=== PATIENT | female | born 1935 | race Caucasian/White ===

== ENCOUNTER → 2016-12-30 | Day surgery (SDC) | payer MEDICARE, BC ==
[2016-12-25 11:06] VITALS: BMI 27.4
[~2016-12-30] MED LIST: ALBUTEROL NEBULIZED 2.5 MG/3 ML INHALATION PRN; ALLOPURINOL 100 MG TAB PO SCH; ALPRAZolam 0.25 MG TAB PO PRN; ATORVASTATIN 40 MG TAB PO SCH; BENZOCAINE SPRAY 100 APPLIC/CAN MUCOUS MEM ONE; CLOPIDOGREL 75 MG TAB PO SCH; ERGOCALCIFEROL 50,000 UNIT CAP PO SCH; ESTROGENS, CONJUGATED 0.625 MG TAB PO SCH; FUROSEMIDE 20 MG TAB PO SCH; HYDROcodone/APAP 7.5-325MG 1 EACH TAB PO PRN; ISOSORBIDE MONONITRATE ER 60 MG TAB.ER.24H PO SCH; LEVOTHYROXINE 50 MCG TAB PO SCH; METOPROLOL SUCCINATE (ER) 25 MG TAB.ER.24H PO SCH; MIDAZOLAM 2 MG/2 ML VIAL IVP ONE; MIDAZOLAM 2 MG/2 ML VIAL ONE; MONTELUKAST 10 MG TAB PO SCH; NON-FORMULARY DRUG (Losartan Potassium [Losartan Potassium] 100 MG) PO SCH; SODIUM CHLORIDE 0.9% 1,000 ML IV SCH; SODIUM CHLORIDE 0.9% 250 ML IV ONE; STOOL SOFTENER PO SCH; VIT A,C & E-LUTEIN-MINERALS 1 EACH TAB PO SCH; ZOLPIDEM 5 MG TAB PO SCH; fentaNYL (PF) 50 MCG/ML 2 ML AMP IV ONE; fentaNYL (PF) 50 MCG/ML 2 ML AMP ONE
[2016-12-30 11:10] VITALS: RESP 18; TEMP 98
--- NOTE | 2016-12-30 13:26 | ECHOT ---
DATE OF SERVICE: INDICATION: Evaluation of aortic valve. PROCEDURE: After explaining the procedure to patient as well as risks and the complications, blood pressure, heart rate, O2 saturation was monitored. The throat was sprayed with Cetacaine. She received 25 mcg intravenous fentanyl and 2 mg of intravenous Versed. The probe was introduced into the esophagus without difficulty. Images were obtained without difficulty. The probe was removed. There was no immediate complications. The patient was returned to her room in stable condition. The procedure was done after obtaining moderate conscious sedated state. FINDINGS: Left atrial size is mildly dilated. Left atrial appendage is normal. Left ventricular size and systolic function are normal. The aortic valve is a tricuspid valve with severe fibrocalcific changes of the aortic cusp with reduced opening. By planimetry the valve area is ranging between 0.6 and 1.0 sq cm. The mitral valve revealed severe mitral annulus calcification. Tricuspid valve appears to be normal. Descending thoracic aorta revealed moderate atherosclerotic changes. No pericardial effusion was noted. Contrast bubble study revealed no evidence of shunting across the interatrial septum. Doppler pulse wave and color Doppler obtained revealed mild mitral and tricuspid regurgitation with mild aortic and pulmonic regurgitation. The peak gradient across the aortic valve was 53 mmHg with a mean of 33 mmHg. There was evidence of patent foramen ovale with [id number] shunting. CONCLUSION: 1. Mildly dilated left atrium with normal appearance of left appearance of left atrial appendage. 2. Normal left ventricular size and systolic function. 3. Moderate to severe aortic stenosis with a peak gradient of 53 mmHg and a mean of 33 mmHg. 4. Severe mitral annulus calcification. 5. Mild mitral, tricuspid and aortic and pulmonic regurgitation. 6. Evidence of patent foramen ovale with [id number] shunting. 7. Moderate atherosclerotic changes of the descending thoracic aorta.
[2016-12-30 13:49] VITALS: BP 122/62; PULSE 66
== END | disposition home or self-care (01) ==
LOC: CATHCVL 10:43
PROVIDERS: ATTEND Internal Medicine Interventional Cardiology
DX: I08.3 Combined rheumatic disorders of mitral, aortic and tricuspid valves (principal); I70.0 Atherosclerosis of aorta; I25.10 Atherosclerotic heart disease of native coronary artery without angina pectoris; I10 Essential (primary) hypertension; I77.9 Disorder of arteries and arterioles, unspecified; E78.2 Mixed hyperlipidemia; I27.2 Other secondary pulmonary hypertension; E11.9 Type 2 diabetes mellitus without complications; I73.9 Peripheral vascular disease, unspecified; Z82.49 Family history of ischemic heart disease and other diseases of the circulatory system; Z79.891 Long term (current) use of opiate analgesic; Z79.899 Other long term (current) drug therapy; Z88.0 Allergy status to penicillin
CPT/HCPCS: 93312; 93320; 93325; 99152; J2250; J3010

== ENCOUNTER 2017-02-15 10:47 | Day surgery (SDC) | payer MEDICARE, BC ==
[2017-02-08 14:04] VITALS: BMI 28.0
[~2017-02-15 10:47] MED LIST changes: -ALBUTEROL NEBULIZED 2.5 MG/3 ML INHALATION PRN; -ALLOPURINOL 100 MG TAB PO SCH; +ALPRAZolam 0.5 MG TAB PO PRN; +ASPIRIN 325 MG TAB PO STA; -ATORVASTATIN 40 MG TAB PO SCH; +ATORVASTATIN 80 MG TAB PO STA; -BENZOCAINE SPRAY 100 APPLIC/CAN MUCOUS MEM ONE; -CLOPIDOGREL 75 MG TAB PO SCH; -ERGOCALCIFEROL 50,000 UNIT CAP PO SCH; -ESTROGENS, CONJUGATED 0.625 MG TAB PO SCH; -FUROSEMIDE 20 MG TAB PO SCH; -HYDROcodone/APAP 7.5-325MG 1 EACH TAB PO PRN; -ISOSORBIDE MONONITRATE ER 60 MG TAB.ER.24H PO SCH; -LEVOTHYROXINE 50 MCG TAB PO SCH; -METOPROLOL SUCCINATE (ER) 25 MG TAB.ER.24H PO SCH; -MIDAZOLAM 2 MG/2 ML VIAL IVP ONE; -MIDAZOLAM 2 MG/2 ML VIAL ONE; -MONTELUKAST 10 MG TAB PO SCH; +NITROGLYCERIN SL TABS 0.4 MG TAB SUBLINGUAL PRN; -NON-FORMULARY DRUG (Losartan Potassium [Losartan Potassium] 100 MG) PO SCH; -SODIUM CHLORIDE 0.9% 1,000 ML IV SCH; +SODIUM CHLORIDE 0.9% 1,000 ML in EMPTY BAG 1 BAG IV ONE; -SODIUM CHLORIDE 0.9% 250 ML IV ONE; -STOOL SOFTENER PO SCH; -VIT A,C & E-LUTEIN-MINERALS 1 EACH TAB PO SCH; -ZOLPIDEM 5 MG TAB PO SCH; -fentaNYL (PF) 50 MCG/ML 2 ML AMP IV ONE; -fentaNYL (PF) 50 MCG/ML 2 ML AMP ONE
[2017-02-15 11:13] VITALS: RESP 20
[2017-02-15 11:49] LABS: Basophils % (A) 0 %; CHCM 33.4; Eosinophils # (A) 0.2 k/uL (0-0.7); Eosinophils % (A) 4 %; HCT 32.6 % (34.0-46.0); HDW 2.62; HGB 10.9 gm/dL (11.4-16.0); Luc # (Auto) 0.19; Luc % (Auto) 4; Lymphocytes # (A) 1.6 k/uL (1.0-4.8); Lymphocytes % (A) 34 %; MCH 34.4 pg (25.0-35.0); MCHC 33.6 g/dL (31.0-37.0); MCV 102.4 fL (80.0-100.0); Macrocytosis Slight; Mean Platelet Volume 8.6; Monocytes # (A) 0.4 k/uL (0-1.0); Monocytes % (A) 8 %; Neutrophils # (A) 2.4 k/uL (1.3-7.7); Neutrophils % (A) 51 %; RBC 3.18 m/uL (3.80-5.40); RDW 15.3 % (11.5-15.5); WBC 4.7 k/uL (3.8-10.6); WBC (Perox) 4.92
[2017-02-15 11:51] LABS: Calcium 8.6 mg/dL (8.4-10.2); Potassium 4.2 mmol/L (3.5-5.1)
[2017-02-15] MEDS ORDERED: HEPARIN SODIUM 1,000 UN/ML (10ML VL) ONE (12:01)
[2017-02-15] MEDS ORDERED: diphenhydrAMINE 50 MG/ML 1 ML VIAL ONE (12:01)
[2017-02-15] MEDS ORDERED: fentaNYL (PF) 50 MCG/ML 2 ML AMP ONE (12:01)
[2017-02-15] MEDS ORDERED: LIDOCAINE 2% INJ 20 MG/ML (20 ML MDV) ONE (12:01)
[2017-02-15] MEDS ORDERED: VERAPAMIL 2.5 MG/ML 2 ML AMP ONE (12:01)
[2017-02-15] MEDS ORDERED: fentaNYL (PF) 50 MCG/ML 2 ML AMP IV ONE (12:12)
[2017-02-15] MEDS ORDERED: diphenhydrAMINE 50 MG/ML 1 ML VIAL IVP ONE (12:12)
[2017-02-15] MEDS ORDERED: MIDAZOLAM 2 MG/2 ML VIAL ONE (12:16)
[2017-02-15] MEDS ORDERED: MIDAZOLAM 2 MG/2 ML VIAL IV ONE (12:18)
[2017-02-15] MEDS: VERAPAMIL SYRINGE (5 MG/10 ML) INTRAARTER ONE ×2 (12:23→12:52)
[2017-02-15] MEDS ORDERED: SODIUM CHLORIDE 0.9% 1,000 ML IV ONE (12:24)
[2017-02-15] MEDS ORDERED: IODIXANOL 320 MG/ML 100 ML INTRAARTER ONE (12:57)
[2017-02-15] MEDS ORDERED: RX INFO: IV CONTRAST WAS GIVEN 1 EACH MISC MISCELLANE PRN (13:13)
[2017-02-15] MEDS ORDERED: HYDROcodone/APAP 7.5-325MG 1 EACH TAB PO PRN (13:14)
[2017-02-15] MEDS ORDERED: ALBUTEROL NEBULIZED 2.5 MG/3 ML INHALATION PRN (13:14)
[2017-02-15] MEDS ORDERED: ALPRAZolam 0.25 MG TAB PO PRN (13:14)
[2017-02-15] MEDS ORDERED: SODIUM CHLORIDE 0.9% 1,000 ML IV SCH (13:15)
[2017-02-15 13:28] LABS: Site RA
[2017-02-15 13:31] LABS: Site PA
[2017-02-15 13:32] LABS: Site ARTERIAL
[2017-02-15] MEDS ORDERED: FERROUS SULFATE 325 MG TAB PO SCH (16:00)
[2017-02-15] MEDS ORDERED: DOCUSATE 100 MG CAP PO SCH (16:00)
[2017-02-15] MEDS ORDERED: ALLOPURINOL 100 MG TAB PO SCH (17:00)
[2017-02-15 17:29] VITALS: TEMP 98.1
[2017-02-15 17:30] VITALS: PULSE 51
[2017-02-15] MEDS ORDERED: CLOPIDOGREL 75 MG TAB PO SCH (17:30)
[2017-02-15 17:31] VITALS: BP 106/51
[2017-02-15] MEDS ORDERED: VIT A,C & E-LUTEIN-MINERALS 1 EACH TAB PO SCH (21:00)
[2017-02-15] MEDS ORDERED: ATORVASTATIN 40 MG TAB PO SCH (21:00)
[2017-02-15] MEDS ORDERED: LEVOTHYROXINE 50 MCG TAB PO SCH (21:00)
[2017-02-15] MEDS ORDERED: ZOLPIDEM 5 MG TAB PO SCH (21:00)
[2017-02-15] MEDS ORDERED: MONTELUKAST 10 MG TAB PO SCH (21:00)
[2017-02-15] MEDS ORDERED: ESTROGENS, CONJUGATED 0.625 MG TAB PO SCH (21:00)
--- NOTE | 2017-02-16 07:59 | CC ---
Mrs. Menchaca is an 82 year old female with a known history of hypertension, hyperlipidemia, diabetes mellitus, history of coronary artery disease as well as progressive aortic stenosis who has been complaining of progressive symptoms of dyspnea on exertion. In view of that, recommendation was made regarding cardiac catheterization. The procedure as well as risks and complications were discussed with the patient who is in full understanding and agreement. PROCEDURE: The patient was brought to the laborer cement gun placing in a fasting semi-sedated state. After receiving Fentanyl and Benadryl, achieving moderate conscious sedated state, she was draped and prepped in conventional fashion using Xylocaine anesthesia and Seldinger technique, a 6 Afghan sheath was introduced into the right radial artery . Using guidewire exchange, intracath in the right ( ) vein was exchanged to a 6 Afghan sheath. Following that, right heart catheterization was performed using Polo Rosangela catheter. Multiple samples and calculations were obtained. Cardiac output by thermal dilution was calculated. Following that, selective right and left coronary artery was performed using 5 Afghan 3.5 Bend, right and left Isabelle catheter. Multiple views of the right coronary artery including hemiaxial views were obtained. Following that, the 5 Afghan right Isabelle catheter was used to cross the aortic valve and pressure was measured. Following that, catheter and sheath were removed. Hemostasis was obtained with deployment of a TR band and removal of the sheath from the venous site and with compression. There were no immediate complications. The patient was returned to her room in stable condition. Of note, the patient received 3000 units of intravenous heparin as well as intra-arterial verapamil. FINDINGS: HEMODYNAMICS: Pulmonary artery systolic pressure of42 with a diastolic of 10 and a mean of 20 mmHg. Pulmonary capillary wedge pressure A wave 22, V wave 28 with a mean of 20 mmHg. Right ventricle systolic pressure of 42 with an end diastolic of 8 mmHg. Right atrium A wave 8, V wave 8 with a mean of 6 mmHg. Left ventricular end diastolic pressure of 12 mmHg. Cardiac output by Ran of 4.4 L per minute and by thermal 4.2 L per minute. Aortic valve air was 1.1 cm squared. Fluoroscopy: There is severe calcification involving the aortic valve, the mitral annulus as well as the coronaries. LEFT MAIN: This is a large size vessel bifurcating into left circumflex, left anterior descending artery. Left main coronary artery has 30 to 40% plaque distally without any significant progression compared to the prior study. LEFT ANTERIOR DESCENDING ARTERY: This is a large size vessel reaching towards the apex with a wrap around the apex segment giving rise to a moderate sized diagonal branch. The left anterior descending artery had mild plaque in the mid segment of 20%. The rest of the vessel has no high grade stenosis. LEFT CIRCUMFLEX: This is a nondominant vessel, moderate to large in caliber, giving rise to four obtuse marginal branch. The fourth is the largest in caliber. The vessel is calcified. There is diffuse intimal disease with area of stenosis up to 30 to 40% in the mid segment. RIGHT CORONARY ARTERY: This is a large dominant vessel, heavily calcified giving rise to a right PDA and a small PLV. The right coronary artery in the proximal segment has 40 to 50% stenosis. There is diffuse intimal disease throughout the course of the vessel. LEFT VENTRICULOGRAM: Left ventriculogram was not performed. CONCLUSION: 1. Heavily calcified mitral annulus, aortic valve and coronary arteries. 2. Mild to moderate triple vessel coronary artery disease with no progression compared with the images obtained in 2013. 3. Moderate to severe aortic stenosis. RECOMMENDATIONS: In view of findings, I have recommended proceed with evaluation for possible aortic valve replacement by TAVR. Those findings and recommendations were discussed with the patient and her family who are in full understanding and agreement. Duration of procedure: 48 minutes. VIRI
--- NOTE | 2017-02-16 08:01 | MISC ---
Dear Dr. Gonzalez: I had the pleasure of performing cardiac catheterization on Mrs. Menchaca at [facility] on February 15 and a full copy of procedure note will be forwarded to you. In brief, she was found to have mild to moderate triple vessel coronary artery disease with no significant progression of disease compared to 2012. at the same time, she was found to have moderate to severe aortic stenosis. At this time, I will obtain an evaluation for possible aortic valve placement by TAVR. I will keep you updated on her progress. Thank you again for allowing me to participate in her care. Please feel free to call for any questions. Sincerely, VIRI
[2017-02-16] MEDS ORDERED: METOPROLOL SUCCINATE (ER) 25 MG TAB.ER.24H PO SCH (09:00)
[2017-02-16] MEDS ORDERED: ISOSORBIDE MONONITRATE ER 60 MG TAB.ER.24H PO SCH (09:00)
[2017-02-16] MEDS ORDERED: LOSARTAN 50 MG TAB PO SCH (09:00)
[2017-02-22] MEDS ORDERED: ERGOCALCIFEROL 50,000 UNIT CAP PO SCH (09:00)
== END 2017-02-15 18:57 | disposition home or self-care (01) ==
LOC: CATHCVL 10:47 → 3OBS 12:58 → CATHCVL 18:57
PROVIDERS: ATTEND Internal Medicine Interventional Cardiology
DX: I25.10 Atherosclerotic heart disease of native coronary artery without angina pectoris (principal); I08.2 Rheumatic disorders of both aortic and tricuspid valves; I10 Essential (primary) hypertension; E78.2 Mixed hyperlipidemia; I77.9 Disorder of arteries and arterioles, unspecified; E11.9 Type 2 diabetes mellitus without complications; I73.9 Peripheral vascular disease, unspecified; E78.00 Pure hypercholesterolemia, unspecified; Z82.49 Family history of ischemic heart disease and other diseases of the circulatory system; Z79.02 Long term (current) use of antithrombotics/antiplatelets; Z79.899 Other long term (current) drug therapy
CPT/HCPCS: 93460; 80048; 85018; 82810; 85025; 99152; 99153 ×2; C1769 ×5; C1894 ×3; C1751; J2250; J1200; Q9967; J3010; J1644

== ENCOUNTER 2017-03-02 04:43 | Inpatient (IN) | payer MEDICARE, BC ==
[2017-03-02 04:53] LABS: Glucose,Whole Blood 123 mg/dL (75-99)
[2017-03-02] MEDS ORDERED: ONDANSETRON 4 MG/2 ML VIAL IVP STA (05:14)
[2017-03-02] MEDS ORDERED: MORPHINE SULFATE 4 MG/ML SYRINGE IV STA (05:14)
[2017-03-02 05:21] LABS: Basophils % (A) 0 %; CH 34.6; CHCM 33.5; Eosinophils # (A) 0.2 k/uL (0-0.7); Eosinophils % (A) 3 %; HCT 36.2 % (34.0-46.0); HDW 2.52; HGB 12.1 gm/dL (11.4-16.0); Luc # (Auto) 0.29; Luc % (Auto) 4; Lymphocytes % (A) 36 %; MCH 34.7 pg (25.0-35.0); MCHC 33.4 g/dL (31.0-37.0); MCV 103.9 fL (80.0-100.0); Macrocytosis Moderate; Mean Platelet Volume 8.7; Monocytes # (A) 0.5 k/uL (0-1.0); Monocytes % (A) 5 %; Neutrophils # (A) 4.5 k/uL (1.3-7.7); Neutrophils % (A) 52 %; RBC 3.48 m/uL (3.80-5.40); RDW 15.3 % (11.5-15.5); WBC 8.5 k/uL (3.8-10.6); WBC (Perox) 8.63
--- NOTE | 2017-03-02 05:22 | ED ---
General Adult HPI - General Chief complaint: Nausea/Vomiting/Diarrhea Stated complaint: vomiting Time Seen by Provider: 03/02/17 04:54 Source: patient, RN notes reviewed, old records reviewed Mode of arrival: EMS - History of Present Illness Initial comments: This is an 82-year-old female severe nausea vomiting. Abdominal pain abdominal discomfort, epigastric fullness, nausea, and persistent vomiting. Patient woke up with symptoms tonight. Patient states she has history of heart disease but no prior history of similar symptoms, she has had her gallbladder removed. No fevers. - Related Data Home Medications Medication Instructions Recorded Confirmed ALPRAZolam [Xanax] 0.25 mg PO TID PRN 09/20/14 03/02/17 Ergocalciferol [Vitamin D2 50,000 unit PO Q7DAYS 09/20/14 03/02/17 (DRISDOL)] Furosemide [Lasix] 20 mg PO BID 09/20/14 03/02/17 Levothyroxine Sodium [Synthroid] 50 mcg PO DAILY 09/20/14 03/02/17 Montelukast [Singulair] 10 mg PO DAILY 09/20/14 03/02/17 Zolpidem Tartrate 5 mg PO HS 09/20/14 03/02/17 Atorvastatin [Lipitor] 40 mg PO HS 01/28/16 03/02/17 Isosorbide Mononitrate ER [Imdur] 60 mg PO DAILY 01/28/16 03/02/17 Albuterol Sulfate [Proair Hfa] 2 puff INHALATION RT-BID PRN 02/12/16 03/02/17 Hydrocodone/Acetaminophen [[place] 1 tab PO Q6HR PRN 02/12/16 03/02/17 7.5-325] Metoprolol Succinate [Toprol XL] 25 mg PO DAILY 02/12/16 03/02/17 Allopurinol [Zyloprim] 300 mg PO DAILY 06/16/16 03/02/17 Clopidogrel Bisulfate [Plavix] 75 mg PO DAILY 03/02/17 03/02/17 Diphenoxylate HCl/Atropine 1 tab PO BID 03/02/17 03/02/17 [Lomotil 2.5-0.025 mg Tablet] Estrogens, Conjugated [Premarin] 0.625 mg PO DAILY 03/02/17 03/02/17 Imodium A-D 1mg/7.5ml 1 gm PO DAILY PRN 03/02/17 03/02/17 Losartan Potassium [Cozaar] 100 mg PO DAILY 03/02/17 03/02/17 Nitroglycerin Sl Tabs [Nitrostat] 0.4 mg SUBLINGUAL Q5M PRN 03/02/17 03/02/17 Allergies Allergy/AdvReac Type Severity Reaction Status Date / Time adhesive Allergy tears skin Verified 03/02/17 05:30 off mirtazapine [From Remeron] Allergy Unknown Verified 03/02/17 05:30 Penicillins Allergy Rash/Hives Verified 03/02/17 05:30 Review of Systems ROS Statement: Those systems with pertinent positive or pertinent negative responses have been documented in the HPI. ROS Other: All systems not noted in ROS Statement are negative. 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, HYPOGLYCEMIC, frequent urination, "leaky valve", diff swallowing, HX UTERINE CA, skin ca rt gnosticism/corner rt eye, MACULAR DEGENERATION , hypothyroid History of Any Multi-Drug Resistant Organisms: None Reported Past Surgical History: Adenoidectomy, Appendectomy, Cholecystectomy, Heart Catheterization, Hysterectomy, Joint Replacement, Tonsillectomy Additional Past Surgical History / Comment(s): DMITRIY knee replacements, lt shoulder replacement,hemorroidectomy, basal cell skin ca removed, COLONOSCOPY, tummy tuck, D&C, LIPOMAS REMOVED FROM BILAT LEGS AND LT ARM, KIMMY, salpingectomy , hx c-diff 09/2014 Past Anesthesia/Blood Transfusion Reactions: No Reported Reaction Past Psychological History: No Psychological Hx Reported Smoking Status: Former smoker Past Alcohol Use History: None Reported Past Drug Use History: None Reported - Past Family History Mother Family Medical History: Cancer Additional Family Medical History / Comment(s): lt bbb Father Family Medical History: Myocardial Infarction (MS) Son(s) Family Medical History: Myocardial Infarction (MS) Additional Family Medical History / Comment(s): 2 sons from mi's Daughter(s) Family Medical History: Myocardial Infarction (MS) Additional Family Medical History / Comment(s): daughter had mi while doing cpr on her brother- General Exam General appearance: alert, in no apparent distress Head exam: Present: atraumatic, normocephalic, normal inspection Eye exam: Present: normal appearance, PERRL, EOMI. Absent: scleral icterus, conjunctival injection, periorbital swelling ENT exam: Present: normal exam, mucous membranes moist Neck exam: Present: normal inspection. Absent: tenderness, meningismus, lymphadenopathy Respiratory exam: Present: normal lung sounds bilaterally. Absent: respiratory distress, wheezes, rales, rhonchi, stridor Cardiovascular Exam: Present: regular rate, normal rhythm, normal heart sounds. Absent: systolic murmur, diastolic murmur, rubs, gallop, clicks GI/Abdominal exam: Present: soft, normal bowel sounds. Absent: distended, tenderness, guarding, rebound, rigid Extremities exam: Present: normal inspection, full ROM, normal capillary refill. Absent: tenderness, pedal edema, joint swelling, calf tenderness Back exam: Present: normal inspection Neurological exam: Present: alert, oriented X3, CN II-XII intact Psychiatric exam: Present: normal affect, normal mood Skin exam: Present: warm, dry, intact, normal color. Absent: rash Course Vital Signs 03/02/17 03/02/17 03/02/17 04:48 05:12 06:17 Temperature 97.8 F Pulse Rate 88 95 98 Respiratory 18 20 18 Rate Blood Pressure 199/122 177/94 198/108 O2 Sat by Pulse 98 98 99 Oximetry 03/02/17 03/02/17 03/02/17 06:47 07:17 07:25 Temperature 97.8 F Pulse Rate 109 H 102 H 102 H Respiratory 18 18 18 Rate Blood Pressure 183/93 147/73 147/73 O2 Sat by Pulse 96 98 98 Oximetry EKG Findings - EKG Comments: EKG Findings:: EKG shows A. fib with RVR rate 113, QRS 90, QTC 438 Medical Decision Making - Medical Decision Making A2 female year with weakness, new onset atrial fibrillation with RVR, mildly elevated troponin, no chest pain. Patient be admitted for control of nausea vomiting, rule out ACS, positive elevated troponin nonsystemic - Lab Data Result diagrams: 03/02/17 05:06 03/02/17 05:06 Lab Results 0803/02/17 03/02/17 Range/Units 04:49 05:06 05:06 WBC 8.5 (3.8-10.6) k/uL RBC 3.48 L (3.80-5.40) m/uL Hgb 12.1 (11.4-16.0) gm/dL Hct 36.2 (34.0-46.0) % MCV 103.9 H (80.0-100.0) fL MCH 34.7 (25.0-35.0) pg MCHC 33.4 (31.0-37.0) g/dL RDW 15.3 (11.5-15.5) % Plt Count 167 (150-450) k/uL Neutrophils % 52 % Lymphocytes % 36 % Monocytes % 5 % Eosinophils % 3 % Basophils % 0 % Neutrophils # 4.5 (1.3-7.7) k/uL Lymphocytes # 3.0 (1.0-4.8) k/uL Monocytes # 0.5 (0-1.0) k/uL Eosinophils # 0.2 (0-0.7) k/uL Basophils # 0.0 (0-0.2) k/uL Macrocytosis Moderate PT (9.0-12.0) sec INR (<1.2) APTT (22.0-30.0) sec Sodium (137-145) mmol/L Potassium (3.5-5.1) mmol/L Chloride (98-107) mmol/L Carbon Dioxide (22-30) mmol/L Anion Gap mmol/L BUN (7-17) mg/dL Creatinine (0.52-1.04) mg/dL Est GFR (MDRD) Af Amer (>60 ml/min/1.73 sqM) Est GFR (MDRD) Non-Af (>60 ml/min/1.73 sqM) Glucose (74-99) mg/dL POC Glucose (mg/dL) 123 H (75-99) mg/dL POC Glu Insurance Adviser ID Rosa Isela Chang Calcium (8.4-10.2) mg/dL Phosphorus (2.5-4.5) mg/dL Magnesium (1.6-2.3) mg/dL Total Bilirubin (0.2-1.3) mg/dL AST (14-36) U/L ALT (9-52) U/L Alkaline Phosphatase (38-126) U/L Total Creatine Kinase 38 (30-135) U/L CK-MB (CK-2) 2.2 (0.0-2.4) ng/mL CK-MB (CK-2) Rel Index 5.8 Troponin I 0.048 H* (0.000-0.034) ng/mL NT-Pro-B Natriuret Pep pg/mL Total Protein (6.3-8.2) g/dL Albumin (3.5-5.0) g/dL Lipase (23-300) U/L 03/02/17 03/02/17 03/02/17 Range/Units 05:06 05:06 05:06 WBC (3.8-10.6) k/uL RBC (3.80-5.40) m/uL Hgb (11.4-16.0) gm/dL Hct (34.0-46.0) % MCV (80.0-100.0) fL MCH (25.0-35.0) pg MCHC (31.0-37.0) g/dL RDW (11.5-15.5) % Plt Count (150-450) k/uL Neutrophils % % Lymphocytes % % Monocytes % % Eosinophils % % Basophils % % Neutrophils # (1.3-7.7) k/uL Lymphocytes # (1.0-4.8) k/uL Monocytes # (0-1.0) k/uL Eosinophils # (0-0.7) k/uL Basophils # (0-0.2) k/uL Macrocytosis PT 10.9 (9.0-12.0) sec INR 1.1 (<1.2) APTT 23.4 (22.0-30.0) sec Sodium 139 (137-145) mmol/L Potassium 3.8 (3.5-5.1) mmol/L Chloride 106 (98-107) mmol/L Carbon Dioxide 22 (22-30) mmol/L Anion Gap 11 mmol/L BUN 48 H (7-17) mg/dL Creatinine 1.00 (0.52-1.04) mg/dL Est GFR (MDRD) Af Amer >60 (>60 ml/min/1.73 sqM) Est GFR (MDRD) Non-Af 53 (>60 ml/min/1.73 sqM) Glucose 115 H (74-99) mg/dL POC Glucose (mg/dL) (75-99) mg/dL POC Glu Insurance Adviser ID Calcium 8.5 (8.4-10.2) mg/dL Phosphorus 3.9 (2.5-4.5) mg/dL Magnesium 1.9 (1.6-2.3) mg/dL Total Bilirubin 0.6 (0.2-1.3) mg/dL AST 52 H (14-36) U/L ALT 47 (9-52) U/L Alkaline Phosphatase 62 (38-126) U/L Total Creatine Kinase (30-135) U/L CK-MB (CK-2) (0.0-2.4) ng/mL CK-MB (CK-2) Rel Index Troponin I (0.000-0.034) ng/mL NT-Pro-B Natriuret Pep pg/mL Total Protein 6.2 L (6.3-8.2) g/dL Albumin 3.7 (3.5-5.0) g/dL Lipase 45 (23-300) U/L 03/02/17 Range/Units 05:06 WBC (3.8-10.6) k/uL RBC (3.80-5.40) m/uL Hgb (11.4-16.0) gm/dL Hct (34.0-46.0) % MCV (80.0-100.0) fL MCH (25.0-35.0) pg MCHC (31.0-37.0) g/dL RDW (11.5-15.5) % Plt Count (150-450) k/uL Neutrophils % % Lymphocytes % % Monocytes % % Eosinophils % % Basophils % % Neutrophils # (1.3-7.7) k/uL Lymphocytes # (1.0-4.8) k/uL Monocytes # (0-1.0) k/uL Eosinophils # (0-0.7) k/uL Basophils # (0-0.2) k/uL Macrocytosis PT (9.0-12.0) sec INR (<1.2) APTT (22.0-30.0) sec Sodium (137-145) mmol/L Potassium (3.5-5.1) mmol/L Chloride (98-107) mmol/L Carbon Dioxide (22-30) mmol/L Anion Gap mmol/L BUN (7-17) mg/dL Creatinine (0.52-1.04) mg/dL Est GFR (MDRD) Af Amer (>60 ml/min/1.73 sqM) Est GFR (MDRD) Non-Af (>60 ml/min/1.73 sqM) Glucose (74-99) mg/dL POC Glucose (mg/dL) (75-99) mg/dL POC Glu Insurance Adviser ID Calcium (8.4-10.2) mg/dL Phosphorus (2.5-4.5) mg/dL Magnesium (1.6-2.3) mg/dL Total Bilirubin (0.2-1.3) mg/dL AST (14-36) U/L ALT (9-52) U/L Alkaline Phosphatase (38-126) U/L Total Creatine Kinase (30-135) U/L CK-MB (CK-2) (0.0-2.4) ng/mL CK-MB (CK-2) Rel Index Troponin I (0.000-0.034) ng/mL NT-Pro-B Natriuret Pep 81882 pg/mL Total Protein (6.3-8.2) g/dL Albumin (3.5-5.0) g/dL Lipase (23-300) U/L - Radiology Data Radiology results: report reviewed (Chest x-ray is negative for acute disease), image reviewed Critical Care Time Critical Care Time: Yes Total Critical Care Time: 31 Disposition Clinical Impression: Dehydration, Nausea and vomiting, NSTEMI (non-ST elevated myocardial infarction ), Atrial fibrillation with RVR Disposition: ADMITTED IP TO THIS HOSP Condition: Fair
[2017-03-02] MEDS: SODIUM CHLORIDE 0.9% 1,000 ML IV STA ×2 (05:25→09:13)
[2017-03-02 05:33] LABS: ALT 47 U/L (9-52); AST 52 U/L (14-36); Alkaline Phosphatase 62 U/L (38-126); Anion Gap 11 mmol/L; Blood Urea Nitrogen 48 mg/dL (7-17); Calcium 8.5 mg/dL (8.4-10.2); Carbon Dioxide 22 mmol/L (22-30); Chloride 106 mmol/L (98-107); Glucose 115 mg/dL (74-99); Magnesium 1.9 mg/dL (1.6-2.3); Non-African American GFR(MDRD) 53 (>60 ml/min/1.73 sqM); Phosphorous 3.9 mg/dL (2.5-4.5); Potassium 3.8 mmol/L (3.5-5.1); Sodium 139 mmol/L (137-145); Total Bilirubin 0.6 mg/dL (0.2-1.3); Total Protein 6.2 g/dL (6.3-8.2)
[2017-03-02 05:49] LABS: INR 1.1 (<1.2); Partial Thromboplastin Time 23.4 sec (22.0-30.0); Prothrombin Time 10.9 sec (9.0-12.0)
[2017-03-02 05:59] LABS: Creatine Kinase MB 2.2 ng/mL (0.0-2.4)
[2017-03-02 06:07] LABS: Troponin I 0.048 ng/mL (0.000-0.034)
[2017-03-02] MEDS ORDERED: diphenhydrAMINE 50 MG/ML 1 ML VIAL IVP STA (06:32)
[2017-03-02] MEDS ORDERED: METOCLOPRAMIDE 5 MG/ML 2 ML VIAL IVP STA (06:32)
[2017-03-02] MEDS ORDERED: LORazepam 2 MG/ML SYRINGE IV STA (06:32)
--- NOTE | 2017-03-02 06:35 | XR ---
EXAM: XR Abdomen Complete With XR Chest CLINICAL HISTORY: Reason: Pain TECHNIQUE: Frontal view of the chest, frontal view of the abdomen/pelvis and upright view of the abdomen. COMPARISON: July 28, 2010. FINDINGS: Low lung wardens. Cardiac silhouette and pulmonary vascularity are within normal limits allowing for technique. No free air. No radiographic evidence for dilated bowel loops. Cholecystectomy clips. Degenerative changes in lumbar spine. Atherosclerotic calcifications. Multiple pelvic calcifications. IMPRESSION: No radiographic evidence for small bowel obstruction or free air. Multiple pelvic calcifications may represent phleboliths. No acute cardiopulmonary process.
[2017-03-02] MEDS ORDERED: LABETALOL 5 MG/ML VIAL MDV IVP STA (06:47)
[2017-03-02] MEDS ORDERED: ASPIRIN 81 MG CHEW PO STA (06:49)
[2017-03-02] MEDS ORDERED: HEPARIN SODIUM,PORCINE 5,000 UNIT/ML 1 ML VIAL IV PRN (06:49)
[2017-03-02] MEDS ORDERED: HEPARIN SODIUM,PORCINE 5,000 UNIT/ML 1 ML VIAL IV ONE (06:49)
[2017-03-02] MEDS ORDERED: NITROGLYCERIN SL TABS 0.4 MG TAB SUBLINGUAL PRN (06:49)
[2017-03-02] MEDS ORDERED: METOCLOPRAMIDE 5 MG/ML 2 ML VIAL IVP PRN (06:51)
[2017-03-02] MEDS ORDERED: diphenhydrAMINE 50 MG/ML 1 ML VIAL IVP PRN (06:51)
[2017-03-02] MEDS ORDERED: PANTOPRAZOLE 40 MG/10 ML VIAL IVP STA (06:51)
[2017-03-02] MEDS ORDERED: DILTIAZEM 125 MG in SODIUM CHLORIDE 0.9% 100 ML IV ONE (06:57)
[2017-03-02] MEDS ORDERED: DILTIAZEM 5 MG/ML 5 ML VIAL IVP STA (06:57)
[2017-03-02] MEDS ORDERED: SODIUM CHLORIDE 0.9% 1,000 ML IV SCH (07:00)
[2017-03-02] MEDS: HEPARIN SODIUM,PORCINE/D5W PMX 25,000 UNIT in DEXTROSE/WATER 1 500ML.BAG IV SCH (07:13)
--- NOTE | 2017-03-02 08:59 | P.CRDCN ---
History of Present Illness Consult date: 03/02/17 Requesting physician: Perfecto Gonzalez Consult reason: atrial fibrillation Chief complaint: Nausea, shortness of breath and palpitations History of present illness: This is a pleasant 82-year-old female who follows with Dr. Chen in the office. Patient has a known history of hypertension, diabetes, hyperlipidemia, progressive aortic stenosis, who was recently in the hospital because of symptoms of exertional dyspnea, she underwent a KIMMY as well as cardiac catheterization by Dr. Chen. Cardiac catheterization revealed heavily calcified mitral annulus, aortic valve and coronary arteries. Mild to moderate triple-vessel coronary artery disease with no progression as compared with the images obtained in 2013. Moderate to severe aortic stenosis. Subsequently a KIMMY was performed which revealed a mildly dilated left atrium with normal appearance of left atrial appendage, normal left ventricular size and function, moderate to severe aortic stenosis with a peak gradient of 53 and a mean of 33. Severe mitral annulus calcification. Mild mitral tricuspid and aortic and pulmonic regurg. 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 Patient presents to the hospital on this occasion with symptoms of nausea associated dry heaves, significantly worsening shortness of breath and associated palpitations with heart racing. Initial EKG on presentation here shows significant amount of artifact. Subsequent EKG shows atrial fibrillation with a rapid ventricular response. Abdominal x-ray was performed which did not reveal any evidence for small bowel obstruction or free air. No chest x-ray performed. Blood pressure on arrival here 199/122, heart rate in the 90s, 98% on room air. Blood pressure this morning 150/70 with a heart rate of 110, 96% on 2 L of oxygen. White blood cell count 8.5, hemoglobin 12.1, platelet count 167. Potassium 3.8, BUN 48, creatinine 1.0. Troponin 0.048. At the time of my examination, patient is very sleepy and difficult to arouse, she does answer questions appropriately. She was apparently given Ativan as well as Benadryl in the emergency room which is likely contributing to her sleepiness this morning. The patient had been seen in consultation by Dr. Hair, his recommendations for the patient were to be referred for transcatheter valve at [facility] in [place]. 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, HYPOGLYCEMIC, frequent urination, "leaky valve", diff swallowing, HX UTERINE CA, skin ca rt caodaism/corner rt eye, MACULAR DEGENERATION , hypothyroid History of Any Multi-Drug Resistant Organisms: None Reported Past Surgical History: Adenoidectomy, Appendectomy, Cholecystectomy, Heart Catheterization, Hysterectomy, Joint Replacement, Tonsillectomy Additional Past Surgical History / Comment(s): DMITRIY knee replacements, lt shoulder replacement,hemorroidectomy, basal cell skin ca removed, COLONOSCOPY, tummy tuck, D&C, LIPOMAS REMOVED FROM BILAT LEGS AND LT ARM, KIMMY, salpingectomy , hx c-diff 09/2014 Past Anesthesia/Blood Transfusion Reactions: No Reported Reaction Past Psychological History: No Psychological Hx Reported Smoking Status: Former smoker Past Alcohol Use History: None Reported Past Drug Use History: None Reported - Past Family History Mother Family Medical History: Cancer Additional Family Medical History / Comment(s): lt bbb Father Family Medical History: Myocardial Infarction ([place]) Son(s) Family Medical History: Myocardial Infarction ([place]) Additional Family Medical History / Comment(s): 2 sons from mi's Daughter(s) Family Medical History: Myocardial Infarction ([place]) Additional Family Medical History / Comment(s): daughter had mi while doing cpr on her brother- Medications and Allergies Home Medications Medication Instructions Recorded Confirmed Type ALPRAZolam [Xanax] 0.25 mg PO TID PRN 09/20/14 03/02/17 History Ergocalciferol [Vitamin D2 50,000 unit PO Q7DAYS 09/20/14 03/02/17 History (DRISDOL)] Estrogens, Conjugated [Premarin] 0.625 mg PO HS 09/20/14 03/02/17 History Furosemide [Lasix] 20 mg PO DAILY 09/20/14 03/02/17 History Levothyroxine Sodium [Synthroid] 50 mcg PO HS 09/20/14 03/02/17 History Montelukast [Singulair] 10 mg PO HS 09/20/14 03/02/17 History Vits A,C,E/Lutein/Minerals 1 tab PO BID 09/20/14 03/02/17 History [Ocuvite with Lutein Tablet] Zolpidem Tartrate 5 mg PO HS 09/20/14 03/02/17 History Atorvastatin [Lipitor] 40 mg PO HS 01/28/16 03/02/17 History Isosorbide Mononitrate ER [Imdur] 60 mg PO DAILY 01/28/16 03/02/17 History Albuterol Sulfate [Proair Hfa] 2 puff INHALATION Q6HR PRN 02/12/16 03/02/17 History Hydrocodone/Acetaminophen [[place] 1 tab PO Q6HR PRN 02/12/16 03/02/17 History 7.5-325] Metoprolol Succinate [Toprol XL] 25 mg PO DAILY 02/12/16 03/02/17 History Allopurinol [Zyloprim] 300 mg PO 1700 06/16/16 03/02/17 History Stool Softener(Unknown Name) 1 tab PO TID 12/25/16 02/15/17 History Ferrous Sulfate [Iron] 325 mg PO DIRECTED 02/08/17 03/02/17 History Aspirin 81 mg PO ONCE 02/15/17 03/02/17 History Lisinopril [Zestril] 20 mg PO BID 03/02/17 03/02/17 History Meloxicam [Mobic] 15 mg PO DAILY 03/02/17 03/02/17 History hydrALAZINE HCL [Hydralazine HCl] 25 mg PO TID 03/02/17 03/02/17 History Allergies Allergy/AdvReac Type Severity Reaction Status Date / Time adhesive Allergy tears skin Verified 03/02/17 05:30 off mirtazapine [From Remeron] Allergy Unknown Verified 03/02/17 05:30 Penicillins Allergy Rash/Hives Verified 03/02/17 05:30 Physical Exam Vitals: Vital Signs Temp Pulse Resp BP Pulse Ox 03/02/17 08:13 96 03/02/17 07:25 97.8 F 102 H 18 147/73 98 03/02/17 07:17 102 H 18 147/73 98 03/02/17 06:47 109 H 18 183/93 96 03/02/17 06:17 98 18 198/108 99 03/02/17 05:12 95 20 177/94 98 03/02/17 04:48 97.8 F 88 18 199/122 98 Intake and Output 03/01/17 03/02/17 03/02/17 22:59 06:59 14:59 Other: Weight 71.214 kg PHYSICAL EXAMINATION: HEENT: [Head is atraumatic, normocephalic. Pupils equal, round. Neck is supple. There is elevated jugular venous pressure.] HEART EXAMINATION: Heart S1 and S2 irregularly irregular a systolic ejection murmur is heard. CHEST EXAMINATION: Circumflex clear with diminished air entry to the bases. ABDOMEN: [ Soft, nontender. Bowel sounds are heard. No organomegaly noted]. EXTREMITIES:[ 2+ peripheral pulses with no evidence of peripheral edema and no calf tenderness noted]. NEUROLOGIC [patient is sleepy , alert and oriented -3.] . Results 03/02/17 05:06 03/02/17 05:06 Cardiac Enzymes 03/02/17 03/02/17 Range/Units 05:06 05:06 AST 52 H (14-36) U/L CK-MB (CK-2) 2.2 (0.0-2.4) ng/mL Troponin I 0.048 H* (0.000-0.034) ng/mL Coagulation 03/02/17 Range/Units 05:06 PT 10.9 (9.0-12.0) sec APTT 23.4 (22.0-30.0) sec CBC 03/02/17 Range/Units 05:06 WBC 8.5 (3.8-10.6) k/uL RBC 3.48 L (3.80-5.40) m/uL Hgb 12.1 (11.4-16.0) gm/dL Hct 36.2 (34.0-46.0) % Plt Count 167 (150-450) k/uL Comprehensive Metabolic Panel 03/02/17 Range/Units 05:06 Sodium 139 (137-145) mmol/L Potassium 3.8 (3.5-5.1) mmol/L Chloride 106 (98-107) mmol/L Carbon Dioxide 22 (22-30) mmol/L BUN 48 H (7-17) mg/dL Creatinine 1.00 (0.52-1.04) mg/dL Glucose 115 H (74-99) mg/dL Calcium 8.5 (8.4-10.2) mg/dL AST 52 H (14-36) U/L ALT 47 (9-52) U/L Alkaline Phosphatase 62 (38-126) U/L Total Protein 6.2 L (6.3-8.2) g/dL Albumin 3.7 (3.5-5.0) g/dL Current Medications Generic Name Dose Route Start Last Admin Trade Name Freq PRN Reason Stop Dose Admin Aspirin 325 mg 03/03/17 09:00 Aspirin PO DAILY TERESO Diphenhydramine HCl 25 mg 03/02/17 06:51 Benadryl IVP Q6HR PRN Allergy Symptoms Heparin Sodium (Porcine) 0 unit 03/02/17 06:49 Heparin IV Q6HR PRN Low PTT Protocol Sodium Chloride 1,000 mls @ 100 mls/hr 03/02/17 05:14 03/02/17 05:25 Saline 0.9% IV 03/02/17 15:13 100 mls/hr .Q10H STA Administration Heparin Sodium/Dextrose 25,000 500 mls @ 17.09 mls/hr 03/02/17 07:00 07:13 unit/ IV Solution IV 12 units/kg/hr .Q24H TERESO 17.09 mls/hr Protocol Administration 12 UNITS/KG/HR Sodium Chloride 1,000 mls @ 100 mls/hr 03/02/17 07:00 Saline 0.9% IV .Q10H TERESO Diltiazem HCl 125 mg/ Sodium 125 mls @ 5 mls/hr 03/02/17 06:57 Chloride IV 03/03/17 06:56 .Q24H ONE 5 MG/HR Metoclopramide HCl 5 mg 03/02/17 06:51 Reglan IVP Q6HR PRN Nausea And Vomiting Nitroglycerin 0.4 mg 03/02/17 06:49 Nitrostat SUBLINGUAL Q5M PRN Chest Pain Ondansetron HCl 4 mg 03/02/17 06:51 Zofran IVP Q6HR PRN Nausea And Vomiting Pantoprazole Sodium 40 mg 03/02/17 09:00 Protonix IVP DAILY TERESO Intake and Output 03/01/17 03/02/17 03/02/17 22:59 06:59 14:59 Other: Weight 71.214 kg 03/02/17 05:03/02/17 05:06 EKG Interpretations (text) EKG shows atrial fibrillation with rapid ventricular response. Assessment and Plan Plan: Assessment and plan #1 atrial fibrillation with rapid ventricular response, appears to be of new onset. #2 moderate to severe aortic stenosis, patient recently had a KIMMY performed last month which revealed moderate to severe aortic stenosis, severe mitral annulus calcification, evidence of patent foramen ovale with [id number] shunting and moderate atherosclerotic changes in the descending thoracic aorta #3 mild to moderate coronary artery disease, cardiac catheterization performed last month revealed a 30-40% lesion in the left main, 20% stenosis of the LAD, 30-40% mid circumflex stenosis, 40-50% stenosis of the right coronary artery with diffuse intimal disease throughout. #4 hypertension #5 hyperlipidemia #6 diabetes #7 peripheral vascular disease #8 family history of premature coronary artery disease #9 history of prior TIA #10 abnormal troponin Plan We will obtain a repeat echocardiogram with Doppler study. We will also request a chest x-ray be performed. Patient is currently on IV heparin. It was explained to the son this morning the patient will require anticoagulation for stroke prevention. She has recently been seen in consultation by cardiothoracic surgery with the recommendation to be transferred to [facility] for transcatheter valve. We will resume the patient's beta layo, baby aspirin, statin, and MEGAN inhibitor. Obtain BNP level. Further recommendations to follow. DNP note has been reviewed, I agree with a documented findings and plan of care. Patient was seen and examined.
[2017-03-02] MEDS ORDERED: LISINOPRIL 20 MG TAB PO SCH (09:00)
[2017-03-02] MEDS ORDERED: PANTOPRAZOLE 40 MG/10 ML VIAL IVP SCH (09:00)
[2017-03-02] MEDS: METOPROLOL SUCCINATE (ER) 25 MG TAB.ER.24H PO SCH (09:12)
--- NOTE | 2017-03-02 09:34 | XR ---
EXAMINATION TYPE: XR chest 1V portable DATE OF EXAM: 03/02/2017 COMPARISON: Prior chest x-ray 07/28/2010 HISTORY: Shortness of breath TECHNIQUE: Single frontal view of the chest is obtained. FINDINGS: There is no focal air space opacity, pleural effusion, or pneumothorax seen. The cardiac silhouette size is possibly accentuated due to rotation. Postop change noted to the left shoulder. Th ere are overlying cardiac leads. Mitral annular calcifications are suspected. Patient is rotated. Garrett g volumes somewhat low. The osseous structures are intact. IMPRESSION: There may be cardiomegaly although the patient is rotated. Postop changes. Follow-up as indicated.
[2017-03-02] MEDS: ONDANSETRON 4 MG/2 ML VIAL IVP PRN ×3 (10:37→22:50)
[2017-03-02] MEDS ORDERED: Magnesium Replacement Protocol 1 EACH MISC MISCELLANE PRN (11:05)
[2017-03-02] MEDS ORDERED: Potassium Replacement Protocol 1 EACH MISC MISCELLANE PRN (11:05)
--- NOTE | 2017-03-02 11:19 | ECHOF ---
Referral Reason:abn trop MEASUREMENTS -------- HEIGHT: 160.0 cm WEIGHT: 71.2 kg BP: IVSd: 1.4 cm (0.6 - 1.1) LVIDd: 3.2 cm (3.9 - 5.3) LVPWd: 1.4 cm (0.6 - 1.1) IVSs: 2.0 cm LVIDs: 1.9 cm LVPWs: 1.8 cm LAESV Index (A-L): 75.03 ml/m Ao Diam: 2.5 cm (2.0 - 3.7) AV Cusp: 1.0 cm (1.5 - 2.6) LA Diam: 4.4 cm (2.7 - 3.8) MV EXCURSION: 10.065 mm (> 18.000) MV EF SLOPE: 32 mm/s (70 - 150) EPSS: 1.0 cm AV maxP.95 mmHg AV meanP.30 mmHg AR PHT: 457 ms RAP: 20.00 mmHg RVSP: 59.49 mmHg FINDINGS -------- Atrial fibrillation. This was a technically good study. There is moderate concentric left ventricular hypertrophy. Overall left ventricular systolic function is low-normal with, an EF between 50 - 55 %. The right ventricle is normal in size and function. LA is severely dilated >40 ml/m2 RA appears enlarged. Aortic valve is trileaflet and is severely thickened. There is mild aortic regurgitation. There is moderate aortic stenosis present. Peak/mean gradient across the Aortic Valve is 18.95mmHg / 10.30mmHg. The mitral valve leaflets are moderate to severely thickened. Severe mitral annular calcification present. Moderate mitral regurgitation is present. ECHOGENIC mobile structure attached to AML on the LV side ? veg or thrombus. Adv : KIMMY Severe tricuspid regurgitation present. There is moderate pulmonary hypertension. The right ventricular systolic pressure, as measured by Doppler, is 59.49mmHg. Pulmonic valve appears structurally normal. The aortic root size is normal. The inferior vena cava is severely dilated with no collapse. The pericardium is normal. CONCLUSIONS -------- 1. Atrial fibrillation. 2. Peak/mean gradient across the Aortic Valve is 18.95mmHg / 10.30mmHg. 3. The mitral valve leaflets are moderate to severely thickened. 4. Moderate mitral regurgitation is present. 5. Severe tricuspid regurgitation present. 6. There is moderate pulmonary hypertension. 7. The right ventricular systolic pressure, as measured by Doppler, is 59.49mmHg. 8. Pulmonic valve appears structurally normal. 9. The aortic root size is normal. 10. The inferior vena cava is severely dilated with no collapse. 11. The pericardium is normal. 12. This was a technically good study. 13. There is moderate concentric left ventricular hypertrophy. 14. Overall left ventricular systolic function is low-normal with, an EF between 50 - 55 %. 15. The right ventricle is normal in size and function. 16. LA is severely dilated >40 ml/m2 17. RA appears enlarged. 18. Aortic valve is trileaflet and is severely thickened. 19. There is mild aortic regurgitation. FERRULER: Marlena Hall RDCS
--- NOTE | 2017-03-02 12:05 | P.HPIM ---
History of Present Illness H&P Date: 03/02/17 Chief Complaint: Shortness of breath This is a 82-year-old female with a very complex past medical history noted below significant for coronary artery disease and moderate to severe aortic stenosis of presented to the hospital with worsening nausea, vomiting and shortness of breath. Patient is very lethargic this morning and is unable to provide any meaningful medical history. Apparently she was given Benadryl and Ativan in the emergency room and currently she is very lethargic. Most of the medical history was obtained by chart review and nursing staff report. Apparently, patient was having worsening shortness of breath over the past few days. She was recently seen at [facility] and being evaluated for possible TAVR. Yesterday she was having a lot of nausea and vomited and then decided to come to the emergency room for further evaluation. In the emergency room, 12-lead EKG showed new onset atrial fibrillation with rapid ventricular response. Patient was admitted to telemetry floor. She remained hemodynamically stable. Cardizem drip was ordered but was never started as heart rate improved significantly after patient receives her home dose of metoprolol. She was seen and evaluated by cardiology. Review of Systems Review of system: 14 points review of systems were obtained and were negative except to what were mentioned in the HPI. 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, HYPOGLYCEMIC, frequent urination, "leaky valve", diff swallowing, HX UTERINE CA, skin ca rt yazidi/corner rt eye, MACULAR DEGENERATION , hypothyroid History of Any Multi-Drug Resistant Organisms: None Reported Past Surgical History: Adenoidectomy, Appendectomy, Cholecystectomy, Heart Catheterization, Hysterectomy, Joint Replacement, Tonsillectomy Additional Past Surgical History / Comment(s): DMITRIY knee replacements, lt shoulder replacement,hemorroidectomy, basal cell skin ca removed, COLONOSCOPY, tummy tuck, D&C, LIPOMAS REMOVED FROM BILAT LEGS AND LT ARM, KIMMY, salpingectomy , hx c-diff 09/2014 Past Anesthesia/Blood Transfusion Reactions: No Reported Reaction Past Psychological History: No Psychological Hx Reported Smoking Status: Former smoker Past Alcohol Use History: None Reported Past Drug Use History: None Reported - Past Family History Mother Family Medical History: Cancer Additional Family Medical History / Comment(s): lt bbb Father Family Medical History: Myocardial Infarction ([place]) Additional Family Medical History / Comment(s): Father had a OH at the age of 86yrs. He had CABG. Son(s) Family Medical History: Myocardial Infarction ([place]) Additional Family Medical History / Comment(s): 2 sons from mi's Daughter(s) Family Medical History: Myocardial Infarction ([place]) Additional Family Medical History / Comment(s): daughter had mi while doing cpr on her brother- Medications and Allergies Home Medications Medication Instructions Recorded Confirmed Type ALPRAZolam [Xanax] 0.25 mg PO TID PRN 09/20/14 03/02/17 History Ergocalciferol [Vitamin D2 50,000 unit PO Q7DAYS 09/20/14 03/02/17 History (DRISDOL)] Furosemide [Lasix] 20 mg PO BID 09/20/14 03/02/17 History Levothyroxine Sodium [Synthroid] 50 mcg PO DAILY 09/20/14 03/02/17 History Montelukast [Singulair] 10 mg PO DAILY 09/20/14 03/02/17 History Zolpidem Tartrate 5 mg PO HS 09/20/14 03/02/17 History Atorvastatin [Lipitor] 40 mg PO HS 01/28/16 03/02/17 History Isosorbide Mononitrate ER [Imdur] 60 mg PO DAILY 01/28/16 03/02/17 History Albuterol Sulfate [Proair Hfa] 2 puff INHALATION RT-BID PRN 02/12/16 03/02/17 History Hydrocodone/Acetaminophen [[place] 1 tab PO Q6HR PRN 02/12/16 03/02/17 History 7.5-325] Metoprolol Succinate [Toprol XL] 25 mg PO DAILY 02/12/16 03/02/17 History Allopurinol [Zyloprim] 300 mg PO DAILY 06/16/16 03/02/17 History Clopidogrel Bisulfate [Plavix] 75 mg PO DAILY 03/02/17 03/02/17 History Diphenoxylate HCl/Atropine 1 tab PO BID 03/02/17 03/02/17 History [Lomotil 2.5-0.025 mg Tablet] Estrogens, Conjugated [Premarin] 0.625 mg PO DAILY 03/02/17 03/02/17 History Imodium A-D 1mg/7.5ml 1 gm PO DAILY PRN 03/02/17 03/02/17 History Losartan Potassium [Cozaar] 100 mg PO DAILY 03/02/17 03/02/17 History Nitroglycerin Sl Tabs [Nitrostat] 0.4 mg SUBLINGUAL Q5M PRN 03/02/17 03/02/17 History Allergies Allergy/AdvReac Type Severity Reaction Status Date / Time adhesive Allergy tears skin Verified 03/02/17 05:30 off mirtazapine [From Remeron] Allergy Unknown Verified 03/02/17 05:30 Penicillins Allergy Rash/Hives Verified 03/02/17 05:30 Physical Exam Vitals: Vital Signs Temp Pulse Pulse Resp BP BP Pulse Ox 03/02/17 10:44 90 12 136/80 99 03/02/17 08:13 96 03/02/17 07:50 96.9 F L 109 H 16 151/74 91 L 03/02/17 07:25 97.8 F 102 H 18 147/73 98 03/02/17 07:17 102 H 18 147/73 98 03/02/17 06:47 109 H 18 183/93 96 03/02/17 06:17 98 18 198/108 99 03/02/17 05:12 95 20 177/94 98 03/02/17 04:48 97.8 F 88 18 199/122 98 Intake and Output 03/01/17 03/02/17 03/02/17 22:59 06:59 14:59 Other: # Voids 0 Weight 71.214 kg General: The patient is awake and alert, in no distress Eye: there is normal conjunctiva bilaterally. Neck: The neck is supple, there is no JVD. Cardiovascular: Normal S1-S2, no S3-S4, no murmurs. Respiratory: Lungs clear to auscultation bilaterally Gastrointestinal: Abdomen is soft, nontender Musculoskeletal: There is no pedal edema. Neurological:. Speech is normal. Skin: Skin is warm and dry Results CBC & Chem 7: 03/02/17 05:06 03/02/17 05:06 Labs: Abnormal Lab Results - Last 24 Hours (Table) 03/02/17 03/02/17 03/02/17 Range/Units 04:49 05:06 05:06 RBC 3.48 L (3.80-5.40) m/uL MCV 103.9 H (80.0-100.0) fL BUN (7-17) mg/dL Glucose (74-99) mg/dL POC Glucose (mg/dL) 123 H (75-99) mg/dL AST (14-36) U/L Troponin I 0.048 H* (0.000-0.034) ng/mL Total Protein (6.3-8.2) g/dL 03/02/17 Range/Units 05:06 RBC (3.80-5.40) m/uL MCV (80.0-100.0) fL BUN 48 H (7-17) mg/dL Glucose 115 H (74-99) mg/dL POC Glucose (mg/dL) (75-99) mg/dL AST 52 H (14-36) U/L Troponin I (0.000-0.034) ng/mL Total Protein 6.2 L (6.3-8.2) g/dL Thrombosis Risk Factor Assmnt - Choose All That Apply Any of the Below Risk Factors Present?: Yes Each Factor Represents 1 point: Acute [place], Obesity (BMI >25) Each Risk Factor Represents 3 Points: Age 75 years or older Other congenital or acquired thrombophilia - If yes, enter type in comment: No Thrombosis Risk Factor Assessment Total Risk Factor Score: 5 Thrombosis Risk Factor Assessment Level: High Risk Assessment and Plan Plan: 1. New onset atrial fibrillation with rapid ventricular response, currently heart rate well controlled with metoprolol. On anticoagulation with IV heparin. Anticoagulation discussed by cardiology with the patient's family and her son at bedside. 2. Moderate to severe aortic stenosis currently being evaluated for possible TAVR at [facility] 3. Underlying coronary artery disease 4. Essential hypertension: Blood pressure not well controlled on presentation. Now better controlled. We will continue to monitor. 5. Hypertensive urgency improved with resuming home medications Today, I reviewed her medication list and lab work resolved. Appreciate cardiology recommendations. Repeat echocardiogram showed moderate to severe aortic stenosis, moderate to severe mitral and tricuspid regurgitation. Moderate pulmonary hypertension. Preserved EF of 50% we'll continue current regimen. Repeat lab work in the morning.
[2017-03-02 13:01] LABS: Creatine Kinase MB 1.9 ng/mL (0.0-2.4); Troponin I 0.032 ng/mL (0.000-0.034)
[2017-03-02] MEDS: FUROSEMIDE 20 MG TAB PO SCH (17:41)
[2017-03-02 18:09] LABS: Creatine Kinase MB 1.8 ng/mL (0.0-2.4); Troponin I 0.029 ng/mL (0.000-0.034)
[2017-03-02] MEDS: IOHEXOL 350 MG/ML 25 ML BOTTLE (ORAL USE) PO PRN ×2 (18:41→19:57)
--- NOTE | 2017-03-02 21:38 | CT ---
"EXAMINATION TYPE: CT abdomen pelvis wo con DATE OF EXAM: 03/02/2017 COMPARISON: 07/28/2010 HISTORY: Nausea and vomiting. CT DLP: 998.00 mGycm Automated exposure control for dose reduction was used. TECHNIQUE: Helical acquisition of images was performed from the lung bases through the pelvis. FINDINGS: Evaluation of the solid viscera is limited secondary to lack of intravenous contrast. LUNG BASES: Bibasilar pleural-parenchymal scarring, subsegmental atelectasis, and paraseptal emphysem atous changes are seen. Dense three-vessel coronary calcifications and mitral annulus calcifications are present. LIVER/GB: Gallbladder is surgically absent. There is extensive intrahepatic and extrahepatic biliary ductal dilatation in combination with periportal edema and an engorged inferior vena cava. Hepatic cy st is again seen in segment 5. PANCREAS: No significant abnormality is seen. SPLEEN: No significant abnormality is seen. ADRENALS: No significant abnormality is seen. KIDNEYS: No significant abnormality is seen. FREE FLUID: A scant amount of free fluid is seen in the dependent pelvis. URINARY BLADDER: No significant abnormality is seen. PELVIC ADENOPATHY: Multiple prominent but not enlarged periaortic and mesenteric lymph nodes are see n. OSSEOUS STRUCTURES: No significant abnormality is seen. BOWEL: Right upper quadrant inflammatory changes are centered around the hepatic flexure extending i nto the hepatorenal fossa and towards the descending second portion of the duodenum. This also extend s into the fissure for the ligamentum teres. No evidence of pneumatosis intestinalis or pneumatosis c radha is seen. Lipomatous hypertrophy of the ileocecal valve is noted. Inflammatory fat stranding is al so seen of the splenic flexure to a lesser degree without distinct bowel wall thickening. Numerous pancolonic diverticula are present without evidence of acute diverticulitis. OTHER: Extensive atherosclerosis is seen of the abdominal aorta and its branches. IMPRESSION: 1. EXTENSIVE RIGHT UPPER QUADRANT FAT STRANDING AND HEPATIC FLEXURE BOWEL WALL THICKENING FAVORED TO BE SEQUELA OF COLITIS. INFLAMMATORY OR INFECTIOUS COLITIS IS FAVORED GIVEN THE SHORT SEGMENT, DISTRIB UTION OF BOWEL WALL THICKENING, LACK OF PNEUMATOSIS, AND LACK OF PORTAL VENOUS GAS, HOWEVER CORRELATI ON WITH LACTIC ACID LEVELS IS RECOMMENDED TO EXCLUDE ISCHEMIC BOWEL THERE IS EXTENSIVE CALCIFIC AT HEROMATOUS CHANGES OF THE ABDOMINAL AORTA AND ITS BRANCHES. 2. INFLAMMATORY FAT STRANDING IN THE LEFT UPPER QUADRANT TO A LESSER DEGREE MAY REPRESENT MULTIFOCAL COLITIS. 3. SURGICAL ABSENCE OF THE GALLBLADDER WITH INTRAHEPATIC AND EXTRAHEPATIC BILIARY DUCTAL DILATATION A ND A SIMPLE STABLE HEPATIC CYSTS. A Grant message has been communicated to Perfecto Gonzalez MD via the [employer] | Critical Result s ystem on 03/02/2017 9:35 PM, Message ID [id number]."
[2017-03-02] MEDS: DIPHENOX-ATROP 2.5-0.025 MG 1 EACH TAB PO SCH (22:50)
[2017-03-02] MEDS: ATORVASTATIN 40 MG TAB PO SCH (22:50)
[2017-03-03] MEDS: ONDANSETRON 4 MG/2 ML VIAL IVP PRN ×3 (05:46→21:31)
[2017-03-03] MEDS: LEVOTHYROXINE 50 MCG TAB PO SCH (06:00)
[2017-03-03 06:10] LABS: Basophils % (A) 0 %; CH 34.3; CHCM 33.1; Eosinophils % (A) 0 %; HCT 35.9 % (34.0-46.0); HDW 2.53; HGB 11.6 gm/dL (11.4-16.0); Luc # (Auto) 0.18; Luc % (Auto) 2; Lymphocytes # (A) 1.4 k/uL (1.0-4.8); Lymphocytes % (A) 20 %; MCH 33.7 pg (25.0-35.0); MCHC 32.4 g/dL (31.0-37.0); Macrocytosis Moderate; Mean Platelet Volume 8.3; Monocytes # (A) 0.5 k/uL (0-1.0); Monocytes % (A) 7 %; Neutrophils # (A) 5.1 k/uL (1.3-7.7); Neutrophils % (A) 70 %; RBC 3.45 m/uL (3.80-5.40); RDW 15.1 % (11.5-15.5); WBC 7.3 k/uL (3.8-10.6); WBC (Perox) 7.42
[2017-03-03 06:54] LABS: Calcium 8.1 mg/dL (8.4-10.2); Phosphorous 3.6 mg/dL (2.5-4.5)
[2017-03-03] MEDS ORDERED: PANTOPRAZOLE 40 MG TABLET PO SCH (07:30)
[2017-03-03] MEDS: SODIUM CHLORIDE 0.9% 1,000 ML IV SCH ×2 (07:56→21:32)
[2017-03-03] MEDS: HEPARIN SODIUM,PORCINE/D5W PMX 25,000 UNIT in DEXTROSE/WATER 1 500ML.BAG IV SCH (07:57)
[2017-03-03] MEDS: metroNIDAZOLE-NS PMX 500 MG in SALINE 1 100ML.BAG IVPB SCH ×3 (08:16→22:56)
[2017-03-03] MEDS: LEVOFLOXACIN 500MG-D5W PMX 500 MG in DEXTROSE/WATER 1 100ML.BAG IVPB SCH (08:17)
[2017-03-03] MEDS ORDERED: METOCLOPRAMIDE 5 MG/ML 2 ML VIAL IVP PRN (11:16)
--- NOTE | 2017-03-03 11:48 | P.PN ---
Subjective Patient's continued to have severe nausea all day yesterday and a computed tomography scan of the abdomen and pelvis ordered last night showing evidence of extensive right upper quadrant fat stranding with significant colitis. Patient was made nothing by mouth this morning. She is treated symptomatically. Lactate level was normal making ischemic bowel as likely. On exam her abdomen is nice and soft. There is no tenderness to palpation. Objective - Vital Signs Vital signs: Vital Signs Temp 98 F 03/03/17 11:21 Pulse 75 03/03/17 11:21 Resp 16 03/03/17 11:21 BP 132/96 03/03/17 11:21 Pulse Ox 95 03/03/17 11:21 Intake & Output 03/02/17 03/03/17 03/03/17 18:59 06:59 18:59 Intake Total 180 651.659 228.483 Output Total 100 25 Balance 180 551.659 203.483 Weight 77.5 kg Intake: IV 95 0.9 @10mls/hr 95 Intake, IV Titration 556.659 28.483 Amount Heparin Sodium,Porcine/ 556.659 28.483 D5w Pmx 25,000 unit In Dextrose/Water 1 500ml. bag @ 12 UNITS/KG/HR 17. 09 mls/hr IV .Q24H [facility] Rx #:[id number] Oral 180 200 Output: Urine 100 Emesis 25 Other: Voiding Method Bedpan # Voids 1 1 - Exam General: The patient is awake and alert, in no distress Eye: there is normal conjunctiva bilaterally. Neck: The neck is supple, there is no JVD. Cardiovascular: Normal S1-S2, no S3-S4, no murmurs. Respiratory: Lungs clear to auscultation bilaterally Gastrointestinal: Abdomen is soft, nontender Musculoskeletal: There is no pedal edema. Neurological:. Speech is normal. Skin: Skin is warm and dry - Labs CBC & Chem 7: 03/03/17 05:38 03/03/17 05:38 Labs: Abnormal Lab Results - Last 24 Hours (Table) 03/02/17 03/02/17 03/03/17 Range/Units 11:55 17:08 05:38 RBC 3.45 L (3.80-5.40) m/uL MCV 104.0 H (80.0-100.0) fL APTT 60.8 H (22.0-30.0) sec BUN (7-17) mg/dL Creatinine (0.52-1.04) mg/dL Calcium (8.4-10.2) mg/dL Total Creatine Kinase 27 L (30-135) U/L 03/03/17 03/03/17 Range/Units 05:38 05:38 RBC (3.80-5.40) m/uL MCV (80.0-100.0) fL APTT 63.6 H (22.0-30.0) sec BUN 38 H (7-17) mg/dL Creatinine 1.08 H (0.52-1.04) mg/dL Calcium 8.1 L (8.4-10.2) mg/dL Total Creatine Kinase (30-135) U/L Assessment and Plan Plan: 1. Acute colitis, with severe nausea: Probably infectious colitis. Patient is currently nothing by mouth for bowel rest. She was started on antibiotic with IV Flagyl and Levaquin. C. diff is less likely as patient is not having diarrhea. Ischemic bowel disease also this likely as her lactate is normal and her exam is benign. I will consult general surgery for further evaluation. May consider upper endoscopy/EGD. Continue symptomatic management with IV Zofran and Reglan as needed. 2. New onset atrial fibrillation with rapid ventricular response, currently heart rate well controlled with metoprolol. On anticoagulation with IV heparin. Awaiting further recommendations from cardiology regarding anticoagulation. Anticoagulation risk/benefit discussed by cardiology with the patient's family and her son at bedside. 3. Moderate to severe aortic stenosis currently being evaluated for possible TAVR at [facility]. Repeat echocardiogram showed moderate to severe aortic stenosis, moderate to severe mitral and tricuspid regurgitation. Moderate pulmonary hypertension. Preserved EF of 50% 4. Underlying coronary artery disease 5. Essential hypertension: Blood pressure not well controlled on presentation. Now better controlled. We will continue to monitor. 6. Hypertensive urgency improved with resuming home medications Today, I reviewed her medication list and lab work resolved. Appreciate cardiology and general surgery recommendations. we'll continue current regimen. Repeat lab work in the morning.
--- NOTE | 2017-03-03 14:44 | P.PN ---
Subjective This is a pleasant 82-year-old female who follows with Dr. Chen in the office. Patient has a known history of hypertension, diabetes, hyperlipidemia, progressive aortic stenosis, who was recently in the hospital because of symptoms of exertional dyspnea, she underwent a KIMMY as well as cardiac catheterization by Dr. Chen. Cardiac catheterization revealed heavily calcified mitral annulus, aortic valve and coronary arteries. Mild to moderate triple-vessel coronary artery disease with no progression as compared with the images obtained in 2013. Moderate to severe aortic stenosis. Subsequently a KIMMY was performed which revealed a mildly dilated left atrium with normal appearance of left atrial appendage, normal left ventricular size and function, moderate to severe aortic stenosis with a peak gradient of 53 and a mean of 33. Severe mitral annulus calcification. Mild mitral tricuspid and aortic and pulmonic regurg. 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 Patient presents to the hospital on this occasion with symptoms of nausea associated dry heaves, significantly worsening shortness of breath and associated palpitations with heart racing. Initial EKG on presentation here shows significant amount of artifact. Subsequent EKG shows atrial fibrillation with a rapid ventricular response. Abdominal x-ray was performed which did not reveal any evidence for small bowel obstruction or free air. No chest x-ray performed. Blood pressure on arrival here 199/122, heart rate in the 90s, 98% on room air. Blood pressure this morning 150/70 with a heart rate of 110, 96% on 2 L of oxygen. White blood cell count 8.5, hemoglobin 12.1, platelet count 167. Potassium 3.8, BUN 48, creatinine 1.0. Troponin 0.048. At the time of my examination, patient is very sleepy and difficult to arouse, she does answer questions appropriately. She was apparently given Ativan as well as Benadryl in the emergency room which is likely contributing to her sleepiness this morning. The patient had been seen in consultation by Dr. Hair, his recommendations for the patient were to be referred for transcatheter valve at [facility] in [place]. 03/03/2017. Patient had multiple episodes of severe nausea yesterday, CT of the abdomen and pelvis revealed evidence of extensive right upper quadrant fat stranding with significant colitis. She is currently nothing by mouth. Blood pressure 132/90 with heart rate in the 70s. She continues to be in atrial fibrillation, continues to be on IV heparin. We will hold off on initiating Coumadin until her GI issue is resolved. Then the patient will be started on Coumadin. Objective - Vital Signs Vital signs: Vital Signs Temp 98 F 03/03/17 11:21 Pulse 75 03/03/17 11:21 Resp 16 03/03/17 11:21 BP 132/96 03/03/17 11:21 Pulse Ox 95 03/03/17 11:21 Intake & Output 03/02/17 03/03/17 03/03/17 18:59 06:59 18:59 Intake Total 180 651.659 228.483 Output Total 100 25 Balance 180 551.659 203.483 Weight 77.5 kg Intake: IV 95 0.9 @10mls/hr 95 Intake, IV Titration 556.659 28.483 Amount Heparin Sodium,Porcine/ 556.659 28.483 D5w Pmx 25,000 unit In Dextrose/Water 1 500ml. bag @ 12 UNITS/KG/HR 17. 09 mls/hr IV .Q24H [facility] Rx #:[id number] Oral 180 200 Output: Urine 100 Emesis 25 Other: Voiding Method Bedpan # Voids 1 1 - Exam PHYSICAL EXAMINATION: HEENT: [Head is atraumatic, normocephalic. Pupils equal, round. Neck is supple. There is elevated jugular venous pressure.] HEART EXAMINATION: Heart S1 and S2 irregularly irregular a systolic ejection murmur is heard. CHEST EXAMINATION: Circumflex clear with diminished air entry to the bases. ABDOMEN: [ Soft, nontender. Bowel sounds are heard. No organomegaly noted]. EXTREMITIES:[ 2+ peripheral pulses with no evidence of peripheral edema and no calf tenderness noted]. NEUROLOGIC [patient is sleepy , alert and oriented -3.] - Labs CBC & Chem 7: 03/03/17 05:38 03/03/17 05:38 Labs: Abnormal Lab Results - Last 24 Hours (Table) 03/02/17 03/03/17 03/03/17 Range/Units 17:08 05:38 05:38 RBC 3.45 L (3.80-5.40) m/uL MCV 104.0 H (80.0-100.0) fL APTT (22.0-30.0) sec BUN 38 H (7-17) mg/dL Creatinine 1.08 H (0.52-1.04) mg/dL Calcium 8.1 L (8.4-10.2) mg/dL Total Creatine Kinase 27 L (30-135) U/L 03/03/17 Range/Units 05:38 RBC (3.80-5.40) m/uL MCV (80.0-100.0) fL APTT 63.6 H (22.0-30.0) sec BUN (7-17) mg/dL Creatinine (0.52-1.04) mg/dL Calcium (8.4-10.2) mg/dL Total Creatine Kinase (30-135) U/L Assessment and Plan Plan: Assessment and plan #1 atrial fibrillation with rapid ventricular response, appears to be of new onset. Chronic persistent. #2 moderate to severe aortic stenosis, patient recently had a KIMMY performed last month which revealed moderate to severe aortic stenosis, severe mitral annulus calcification, evidence of patent foramen ovale with [id number] shunting and moderate atherosclerotic changes in the descending thoracic aorta #3 mild to moderate coronary artery disease, cardiac catheterization performed last month revealed a 30-40% lesion in the left main, 20% stenosis of the LAD, 30-40% mid circumflex stenosis, 40-50% stenosis of the right coronary artery with diffuse intimal disease throughout. #4 hypertension #5 hyperlipidemia #6 diabetes #7 peripheral vascular disease #8 family history of premature coronary artery disease #9 history of prior TIA #10 abnormal troponin #11 nausea and vomiting Plan Echocardiogram with Doppler study reveals an ejection fraction of 50-55%. Left atrium is severely dilated, aortic valve is trileaflet and severely thickened. Moderate mitral regurgitation present. Severe tricuspid regurg. Pulmonary hypertension. Mild aortic regurg. Patient continues to be in atrial fibrillation, rate is under adequate control. She is on IV heparin currently. She will need to be initiated on Coumadin, however we will defer until her abdominal issues are addressed. DNP note has been reviewed, I agree with a documented findings and plan of care. Patient was seen and examined.
[2017-03-03] MEDS: ASPIRIN 325 MG TAB PO SCH (15:49)
[2017-03-03] MEDS: ISOSORBIDE MONONITRATE ER 60 MG TAB.ER.24H PO SCH (15:49)
[2017-03-03] MEDS: FUROSEMIDE 20 MG TAB PO SCH ×2 (15:50→15:52)
[2017-03-03] MEDS: CLOPIDOGREL 75 MG TAB PO SCH (15:50)
[2017-03-03] MEDS: METOPROLOL SUCCINATE (ER) 25 MG TAB.ER.24H PO SCH (15:50)
[2017-03-03] MEDS: DIPHENOX-ATROP 2.5-0.025 MG 1 EACH TAB PO SCH ×3 (15:50→21:36)
[2017-03-03] MEDS: ALLOPURINOL 100 MG TAB PO SCH (15:50)
[2017-03-03] MEDS: MONTELUKAST 10 MG TAB PO SCH (15:50)
[2017-03-03] MEDS: LOSARTAN 50 MG TAB PO SCH (15:51)
[2017-03-03] MEDS: PANTOPRAZOLE 40 MG/10 ML VIAL IVP SCH (16:02)
[2017-03-03] MEDS: ATORVASTATIN 40 MG TAB PO SCH (21:32)
--- NOTE | 2017-03-03 22:35 | P.GSCN ---
History of Present Illness Consult date: 03/03/17 Reason for Consult: Colitis History of present illness: We're consulted for abnormal CAT scan findings. Patient admitted with acute onset nausea. Some vomiting. No change in bowel habits. Denies diarrhea. Normal white blood cell count. Normal lactic acid. CAT scan shows inflammation of the hepatic flexure and some mild inflammation elsewhere in the colon as well. She has had a colonoscopy in the past. Unsure as to when that was. No history of colitis. No rectal bleeding or melena.Patient does have a history of C. difficile colitis one to 2 years ago. 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, HYPOGLYCEMIC, frequent urination, "leaky valve", diff swallowing, HX UTERINE CA, skin ca rt faith/corner rt eye, MACULAR DEGENERATION , hypothyroid History of Any Multi-Drug Resistant Organisms: None Reported Past Surgical History: Adenoidectomy, Appendectomy, Cholecystectomy, Heart Catheterization, Hysterectomy, Joint Replacement, Tonsillectomy Additional Past Surgical History / Comment(s): DMITRIY knee replacements, lt shoulder replacement,hemorroidectomy, basal cell skin ca removed, COLONOSCOPY, tummy tuck, D&C, LIPOMAS REMOVED FROM BILAT LEGS AND LT ARM, KIMMY, salpingectomy , hx c-diff 09/2014 Past Anesthesia/Blood Transfusion Reactions: No Reported Reaction Past Psychological History: No Psychological Hx Reported Smoking Status: Former smoker Past Alcohol Use History: None Reported Past Drug Use History: None Reported - Past Family History Mother Family Medical History: Cancer Additional Family Medical History / Comment(s): lt bbb Father Family Medical History: Myocardial Infarction (RI) Additional Family Medical History / Comment(s): Father had a RI at the age of 86yrs. He had CABG. Son(s) Family Medical History: Myocardial Infarction (RI) Additional Family Medical History / Comment(s): 2 sons from mi's Daughter(s) Family Medical History: Myocardial Infarction (RI) Additional Family Medical History / Comment(s): daughter had mi while doing cpr on her brother- Medications and Allergies Home Medications Medication Instructions Recorded Confirmed Type ALPRAZolam [Xanax] 0.25 mg PO TID PRN 09/20/14 03/02/17 History Ergocalciferol [Vitamin D2 50,000 unit PO Q7DAYS 09/20/14 03/02/17 History (DRISDOL)] Furosemide [Lasix] 20 mg PO BID 09/20/14 03/02/17 History Levothyroxine Sodium [Synthroid] 50 mcg PO DAILY 09/20/14 03/02/17 History Montelukast [Singulair] 10 mg PO DAILY 09/20/14 03/02/17 History Zolpidem Tartrate 5 mg PO HS 09/20/14 03/02/17 History Atorvastatin [Lipitor] 40 mg PO HS 01/28/16 03/02/17 History Isosorbide Mononitrate ER [Imdur] 60 mg PO DAILY 01/28/16 03/02/17 History Albuterol Sulfate [Proair Hfa] 2 puff INHALATION RT-BID PRN 02/12/16 03/02/17 History Hydrocodone/Acetaminophen [[place] 1 tab PO Q6HR PRN 02/12/16 03/02/17 History 7.5-325] Metoprolol Succinate [Toprol XL] 25 mg PO DAILY 02/12/16 03/02/17 History Allopurinol [Zyloprim] 300 mg PO DAILY 06/16/16 03/02/17 History Clopidogrel Bisulfate [Plavix] 75 mg PO DAILY 03/02/17 03/02/17 History Diphenoxylate HCl/Atropine 1 tab PO BID 03/02/17 03/02/17 History [Lomotil 2.5-0.025 mg Tablet] Estrogens, Conjugated [Premarin] 0.625 mg PO DAILY 03/02/17 03/02/17 History Imodium A-D 1mg/7.5ml 1 gm PO DAILY PRN 03/02/17 03/02/17 History Losartan Potassium [Cozaar] 100 mg PO DAILY 03/02/17 03/02/17 History Nitroglycerin Sl Tabs [Nitrostat] 0.4 mg SUBLINGUAL Q5M PRN 03/02/17 03/02/17 History Allergies Allergy/AdvReac Type Severity Reaction Status Date / Time adhesive Allergy tears skin Verified 03/02/17 05:30 off mirtazapine [From Remeron] Allergy Unknown Verified 03/02/17 05:30 Penicillins Allergy Rash/Hives Verified 03/02/17 05:30 Surgical - Exam Vital Signs Temp Pulse Resp BP Pulse Ox 97.8 F 88 18 199/122 98 03/02/17 04:48 03/02/17 04:48 03/02/17 04:48 03/02/17 04:48 03/02/17 04:48 Physical exam: General: Well-developed, well-nourished HEENT: Normocephalic, sclerae nonicteric Abdomen: Nontender, nondistended Extremities: No edema Neuro: Alert and oriented Results - Labs 03/03/17 05:38 03/03/17 05:38 Abnormal Lab Results - Last 24 Hours (Table) 03/03/17 03/03/17 03/03/17 Range/Units 05:38 05:38 05:38 RBC 3.45 L (3.80-5.40) m/uL MCV 104.0 H (80.0-100.0) fL APTT 63.6 H (22.0-30.0) sec BUN 38 H (7-17) mg/dL Creatinine 1.08 H (0.52-1.04) mg/dL Calcium 8.1 L (8.4-10.2) mg/dL Diabetes panel 03/03/17 Range/Units 05:38 Sodium 140 (137-145) mmol/L Potassium 4.0 (3.5-5.1) mmol/L Chloride 107 (98-107) mmol/L Carbon Dioxide 24 (22-30) mmol/L BUN 38 H (7-17) mg/dL Creatinine 1.08 H (0.52-1.04) mg/dL Glucose 96 (74-99) mg/dL Calcium 8.1 L (8.4-10.2) mg/dL Triglycerides 60 (<150) mg/dL HDL Cholesterol 46 (40-60) mg/dL Calcium panel 03/03/17 Range/Units 05:38 Calcium 8.1 L (8.4-10.2) mg/dL Phosphorus 3.6 (2.5-4.5) mg/dL Pituitary panel 03/03/17 Range/Units 05:38 Sodium 140 (137-145) mmol/L Potassium 4.0 (3.5-5.1) mmol/L Chloride 107 (98-107) mmol/L Carbon Dioxide 24 (22-30) mmol/L BUN 38 H (7-17) mg/dL Creatinine 1.08 H (0.52-1.04) mg/dL Glucose 96 (74-99) mg/dL Calcium 8.1 L (8.4-10.2) mg/dL Adrenal panel 03/03/17 Range/Units 05:38 Sodium 140 (137-145) mmol/L Potassium 4.0 (3.5-5.1) mmol/L Chloride 107 (98-107) mmol/L Carbon Dioxide 24 (22-30) mmol/L BUN 38 H (7-17) mg/dL Creatinine 1.08 H (0.52-1.04) mg/dL Glucose 96 (74-99) mg/dL Calcium 8.1 L (8.4-10.2) mg/dL Assessment and Plan (1) Colitis Narrative/Plan: Continue clear liquid diet. Continue IV antibiotics. No surgical intervention or endoscopy plan at this point but will follow closely with you. Status: Acute
[2017-03-04] MEDS: LEVOTHYROXINE 50 MCG TAB PO SCH (06:35)
[2017-03-04 07:07] LABS: Calcium 8.1 mg/dL (8.4-10.2); Magnesium 1.9 mg/dL (1.6-2.3); Phosphorous 3.6 mg/dL (2.5-4.5); Potassium 4.3 mmol/L (3.5-5.1)
[2017-03-04 07:18] LABS: CH 34.1; CHCM 32.4; HCT 34.3 % (34.0-46.0); HDW 2.48; HGB 11.1 gm/dL (11.4-16.0); MCH 34.3 pg (25.0-35.0); MCHC 32.4 g/dL (31.0-37.0); MCV 105.9 fL (80.0-100.0); Macrocytosis Moderate; Mean Platelet Volume 8.6; RBC 3.24 m/uL (3.80-5.40); RDW 15.4 % (11.5-15.5); WBC (Perox) 7.18
[2017-03-04] MEDS: metroNIDAZOLE-NS PMX 500 MG in SALINE 1 100ML.BAG IVPB SCH ×3 (08:25→22:58)
[2017-03-04] MEDS: SODIUM CHLORIDE 0.9% 1,000 ML IV SCH ×2 (08:26→21:50)
[2017-03-04] MEDS: LEVOFLOXACIN 500MG-D5W PMX 500 MG in DEXTROSE/WATER 1 100ML.BAG IVPB SCH (08:26)
[2017-03-04] MEDS: FUROSEMIDE 20 MG TAB PO SCH ×2 (08:27→16:18)
[2017-03-04] MEDS: ALLOPURINOL 100 MG TAB PO SCH (08:27)
[2017-03-04] MEDS: LOSARTAN 50 MG TAB PO SCH (08:27)
[2017-03-04] MEDS ORDERED: ALPRAZolam 0.25 MG TAB PO PRN (08:58)
--- NOTE | 2017-03-04 09:03 | P.PN ---
Subjective Patient showing improvement in her nausea and vomiting. Last episode of vomiting was yesterday afternoon. She is on a clear liquid diet. She reports that it is very sweet and having difficulty eating. She denies any abdominal pain. Reports no bowel movement. She denies any chest pain or shortness of breath. Last night she did have a heart rate that he go into the 130s. She is asking to have her Xanax and Ambien restarted Objective - Vital Signs Vital signs: Vital Signs Temp 98.2 F 03/04/17 08:00 Pulse 72 03/04/17 08:00 Resp 16 03/04/17 08:00 BP 158/95 03/04/17 08:00 Pulse Ox 95 03/04/17 08:00 Intake & Output 03/03/17 03/04/17 03/04/17 18:59 06:59 18:59 Intake Total 228.483 75 Output Total 325 650 Balance -96.517 -575 Weight 78 kg Intake: IV 75 Sodium Chloride 0.9% 1, 75 000 ml @ 75 mls/hr IV . [id number] [facility] Rx#:[id number] Intake, IV Titration 28.483 Amount Heparin Sodium,Porcine/ 28.483 D5w Pmx 25,000 unit In Dextrose/Water 1 500ml. bag @ 12 UNITS/KG/HR 17. 09 mls/hr IV .Q24H [facility] Rx #:[id number] Oral 200 Output: Urine 300 650 Emesis 25 Other: Voiding Method Bedpan Bedpan Diaper # Voids 1 - Exam Head normocephalic Neck supple Lungs clear to auscultation bilaterally no wheezing or crackles Heart irregular. A. fib on monitor Abdomen is soft nontender nondistended positive bowel sounds no hepatosplenomegaly Extremities no edema Neuro alert and orientated to 3 - Labs CBC & Chem 7: 03/04/17 05:43 03/04/17 05:43 Labs: Abnormal Lab Results - Last 24 Hours (Table) 03/04/17 03/04/17 03/04/17 Range/Units 05:43 05:43 05:43 RBC 3.24 L (3.80-5.40) m/uL Hgb 11.1 L (11.4-16.0) gm/dL MCV 105.9 H (80.0-100.0) fL Plt Count 149 L (150-450) k/uL APTT 46.6 H (22.0-30.0) sec Chloride 111 H (98-107) mmol/L Carbon Dioxide 20 L (22-30) mmol/L BUN 34 H (7-17) mg/dL Creatinine 1.15 H (0.52-1.04) mg/dL Calcium 8.1 L (8.4-10.2) mg/dL Assessment and Plan Plan: 1. Acute colitis, with severe nausea: Probably infectious colitis. Patient is currently nothing by mouth for bowel rest. She was started on antibiotic with IV Flagyl and Levaquin. C. diff is less likely as patient is not having diarrhea. Ischemic bowel disease also this less likely as her lactate is normal and her exam is benign. Continue symptomatic management with IV Zofran and Reglan as needed. Patient evaluated by surgical service. They're not recommending any surgical intervention or endoscopy at this time. Continue antibiotics. 2. New onset atrial fibrillation with rapid ventricular response, currently heart rate well controlled with metoprolol. On anticoagulation with IV heparin. Awaiting further recommendations from cardiology regarding anticoagulation. Anticoagulation risk/benefit discussed by cardiology with the patient's family and her son at bedside. 3. Moderate to severe aortic stenosis currently being evaluated for possible TAVR at [facility]. Repeat echocardiogram showed moderate to severe aortic stenosis, moderate to severe mitral and tricuspid regurgitation. Moderate pulmonary hypertension. Preserved EF of 50% 4. Underlying coronary artery disease 5. Essential hypertension: Blood pressure not well controlled on presentation. Now better controlled. We will continue to monitor. 6. Hypertensive urgency improved with resuming home medications 7. Generalized anxiety disorder: Restart patient's home dose of Xanax 8. Insomnia Will restarts home dose of Ambien I performed an examination of the patient and discussed their management with the physician Director [employer]. I have reviewed the Physician Director [employer]'s notes and agree with the documented findings and plan of care
[2017-03-04] MEDS: HEPARIN SODIUM,PORCINE/D5W PMX 25,000 UNIT in DEXTROSE/WATER 1 500ML.BAG IV SCH (09:14)
[2017-03-04] MEDS: ONDANSETRON 4 MG/2 ML VIAL IVP PRN (10:04)
[2017-03-04] MEDS: PANTOPRAZOLE 40 MG/10 ML VIAL IVP SCH (10:44)
[2017-03-04] MEDS: METOPROLOL SUCCINATE (ER) 25 MG TAB.ER.24H PO SCH (10:46)
[2017-03-04] MEDS: ASPIRIN 325 MG TAB PO SCH (10:46)
[2017-03-04] MEDS: MONTELUKAST 10 MG TAB PO SCH (10:46)
[2017-03-04 11:09] LABS: Add Differential Manual Differential
[2017-03-04 11:22] LABS: Nucleated Red Blood Cells 1 /100 WBC (0-0); Total Cells Counted 100; WBC 7.3 k/uL (3.8-10.6)
[2017-03-04] MEDS: CLOPIDOGREL 75 MG TAB PO SCH (12:01)
[2017-03-04] MEDS: ISOSORBIDE MONONITRATE ER 60 MG TAB.ER.24H PO SCH (12:02)
[2017-03-04] MEDS: POLYETHYLENE GLYCOL 3350 17 GM POWD.PACK PO SCH (14:04)
[2017-03-04] MEDS: HYDROmorphone 1 MG/ML 1 ML SYRINGE IVP PRN ×3 (14:04→21:36)
--- NOTE | 2017-03-04 15:32 | P.PN ---
Subjective This is a pleasant 82-year-old female who follows with Dr. Chen in the office. Patient has a known history of hypertension, diabetes, hyperlipidemia, progressive aortic stenosis, who was recently in the hospital because of symptoms of exertional dyspnea, she underwent a KIMMY as well as cardiac catheterization by Dr. Chen. Cardiac catheterization revealed heavily calcified mitral annulus, aortic valve and coronary arteries. Mild to moderate triple-vessel coronary artery disease with no progression as compared with the images obtained in 2013. Moderate to severe aortic stenosis. Subsequently a KIMMY was performed which revealed a mildly dilated left atrium with normal appearance of left atrial appendage, normal left ventricular size and function, moderate to severe aortic stenosis with a peak gradient of 53 and a mean of 33. Severe mitral annulus calcification. Mild mitral tricuspid and aortic and pulmonic regurg. 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 Patient presents to the hospital on this occasion with symptoms of nausea associated dry heaves, significantly worsening shortness of breath and associated palpitations with heart racing. Initial EKG on presentation here shows significant amount of artifact. Subsequent EKG shows atrial fibrillation with a rapid ventricular response. Abdominal x-ray was performed which did not reveal any evidence for small bowel obstruction or free air. No chest x-ray performed. Blood pressure on arrival here 199/122, heart rate in the 90s, 98% on room air. Blood pressure this morning 150/70 with a heart rate of 110, 96% on 2 L of oxygen. White blood cell count 8.5, hemoglobin 12.1, platelet count 167. Potassium 3.8, BUN 48, creatinine 1.0. Troponin 0.048. At the time of my examination, patient is very sleepy and difficult to arouse, she does answer questions appropriately. She was apparently given Ativan as well as Benadryl in the emergency room which is likely contributing to her sleepiness this morning. The patient had been seen in consultation by Dr. Hair, his recommendations for the patient were to be referred for transcatheter valve at [facility] in [place]. 03/03/2017. Patient had multiple episodes of severe nausea yesterday, CT of the abdomen and pelvis revealed evidence of extensive right upper quadrant fat stranding with significant colitis. She is currently nothing by mouth. Blood pressure 132/90 with heart rate in the 70s. She continues to be in atrial fibrillation, continues to be on IV heparin. We will hold off on initiating Coumadin until her GI issue is resolved. Then the patient will be started on Coumadin. 03/04/2017 and examined this morning, complaining of lower back discomfort. Continues to be on clear liquids per Dr. davis. If the patient is stable from a surgical perspective, we will need to initiate Coumadin Objective - Vital Signs Vital signs: Vital Signs Temp 98.2 F 03/04/17 08:00 Pulse 72 03/04/17 08:00 Resp 16 03/04/17 08:00 BP 158/95 03/04/17 08:00 Pulse Ox 95 03/04/17 08:00 Intake & Output 03/03/17 03/04/17 03/04/17 18:59 06:59 18:59 Intake Total 228.483 75 432.092 Output Total 325 650 Balance -96.517 -575 432.092 Weight 78 kg Intake: IV 75 Sodium Chloride 0.9% 1, 75 000 ml @ 75 mls/hr IV . [id number] [facility] Rx#:[id number] Intake, IV Titration 28.483 432.092 Amount Heparin Sodium,Porcine/ 28.483 432.092 D5w Pmx 25,000 unit In Dextrose/Water 1 500ml. bag @ 12 UNITS/KG/HR 17. 09 mls/hr IV .Q24H [facility] Rx #:[id number] Oral 200 Output: Urine 300 650 Emesis 25 Other: Voiding Method Bedpan Bedpan Diaper # Voids 1 - Exam PHYSICAL EXAMINATION: HEENT: [Head is atraumatic, normocephalic. Pupils equal, round. Neck is supple. There is elevated jugular venous pressure.] HEART EXAMINATION: Heart S1 and S2 irregularly irregular a systolic ejection murmur is heard. CHEST EXAMINATION: Circumflex clear with diminished air entry to the bases. ABDOMEN: [ Soft, nontender. Bowel sounds are heard. No organomegaly noted]. EXTREMITIES:[ 2+ peripheral pulses with no evidence of peripheral edema and no calf tenderness noted]. NEUROLOGIC [patient is sleepy , alert and oriented -3.] - Labs CBC & Chem 7: 03/04/17 05:43 03/04/17 05:43 Labs: Abnormal Lab Results - Last 24 Hours (Table) 03/04/17 03/04/17 03/04/17 Range/Units 05:43 05:43 05:43 RBC 3.24 L (3.80-5.40) m/uL Hgb 11.1 L (11.4-16.0) gm/dL MCV 105.9 H (80.0-100.0) fL Plt Count 149 L (150-450) k/uL Nucleated RBCs 1 H (0-0) /100 WBC APTT 46.6 H (22.0-30.0) sec Chloride 111 H (98-107) mmol/L Carbon Dioxide 20 L (22-30) mmol/L BUN 34 H (7-17) mg/dL Creatinine 1.15 H (0.52-1.04) mg/dL Calcium 8.1 L (8.4-10.2) mg/dL Assessment and Plan Plan: Assessment and plan #1 atrial fibrillation with rapid ventricular response, appears to be of new onset. Chronic persistent. #2 moderate to severe aortic stenosis, patient recently had a KIMMY performed last month which revealed moderate to severe aortic stenosis, severe mitral annulus calcification, evidence of patent foramen ovale with [id number] shunting and moderate atherosclerotic changes in the descending thoracic aorta #3 mild to moderate coronary artery disease, cardiac catheterization performed last month revealed a 30-40% lesion in the left main, 20% stenosis of the LAD, 30-40% mid circumflex stenosis, 40-50% stenosis of the right coronary artery with diffuse intimal disease throughout. #4 hypertension #5 hyperlipidemia #6 diabetes #7 peripheral vascular disease #8 family history of premature coronary artery disease #9 history of prior TIA #10 abnormal troponin #11 nausea and vomiting Plan Echocardiogram with Doppler study reveals an ejection fraction of 50-55%. Left atrium is severely dilated, aortic valve is trileaflet and severely thickened. Moderate mitral regurgitation present. Severe tricuspid regurg. Pulmonary hypertension. Mild aortic regurg. Patient continues to be in atrial fibrillation, rate is under adequate control. She is on IV heparin currently. She will need to be initiated on Coumadin, however we will defer until her abdominal issues are addressed. DNP note has been reviewed, I agree with a documented findings and plan of care. Patient was seen and examined.
--- NOTE | 2017-03-04 17:10 | P.PN ---
Subjective Principal diagnosis: Colitis Patient states that her nausea is improved. Denies abdominal pain. She does admit to having some left-sided back pain. He says that she has had back pain like this in the past with diverticulitis. He is quite hungry. She is asking for toast. She is tolerated her clear liquids thus far. White blood cell count normal. She is afebrile. Objective - Vital Signs Vital signs: Vital Signs Temp 98 F 03/04/17 16:00 Pulse 117 H 03/04/17 16:00 Resp 16 03/04/17 16:00 BP 126/89 03/04/17 16:00 Pulse Ox 97 03/04/17 16:00 Intake & Output 03/03/17 03/04/17 03/04/17 18:59 06:59 18:59 Intake Total 228.483 75 432.092 Output Total 325 650 Balance -96.517 -575 432.092 Weight 78 kg Intake: IV 75 Sodium Chloride 0.9% 1, 75 000 ml @ 75 mls/hr IV . [id number] [facility] Rx#:[id number] Intake, IV Titration 28.483 432.092 Amount Heparin Sodium,Porcine/ 28.483 432.092 D5w Pmx 25,000 unit In Dextrose/Water 1 500ml. bag @ 12 UNITS/KG/HR 17. 09 mls/hr IV .Q24H [facility] Rx #:[id number] Oral 200 Output: Urine 300 650 Emesis 25 Other: Voiding Method Bedpan Bedpan Diaper # Voids 1 1 - Exam Abdomen: Soft, nontender, nondistended - Labs CBC & Chem 7: 03/04/17 05:43 03/04/17 05:43 Labs: Abnormal Lab Results - Last 24 Hours (Table) 03/04/17 03/04/17 03/04/17 Range/Units 05:43 05:43 05:43 RBC 3.24 L (3.80-5.40) m/uL Hgb 11.1 L (11.4-16.0) gm/dL MCV 105.9 H (80.0-100.0) fL Plt Count 149 L (150-450) k/uL Nucleated RBCs 1 H (0-0) /100 WBC APTT 46.6 H (22.0-30.0) sec Chloride 111 H (98-107) mmol/L Carbon Dioxide 20 L (22-30) mmol/L BUN 34 H (7-17) mg/dL Creatinine 1.15 H (0.52-1.04) mg/dL Calcium 8.1 L (8.4-10.2) mg/dL Assessment and Plan (1) Colitis Narrative/Plan: Continue antibiotics for CAT scan findings of colitis. Ischemic event from A. fib seems unlikely at this point although still not completely ruled out. Will advance diet. Will follow with you. Status: Acute
[2017-03-04] MEDS: ATORVASTATIN 40 MG TAB PO SCH (21:49)
[2017-03-04] MEDS: ZOLPIDEM 5 MG TAB PO SCH (21:50)
[2017-03-05 05:55] LABS: Basophils % (A) 0 %; CH 34.4; CHCM 33.5; Eosinophils # (A) 0.2 k/uL (0-0.7); Eosinophils % (A) 3 %; HCT 33.7 % (34.0-46.0); HDW 2.59; HGB 11.2 gm/dL (11.4-16.0); Luc # (Auto) 0.19; Luc % (Auto) 3; Lymphocytes # (A) 1.5 k/uL (1.0-4.8); Lymphocytes % (A) 21 %; MCH 34.4 pg (25.0-35.0); MCHC 33.2 g/dL (31.0-37.0); MCV 103.4 fL (80.0-100.0); Macrocytosis Slight; Mean Platelet Volume 8.5; Monocytes # (A) 0.5 k/uL (0-1.0); Monocytes % (A) 8 %; Neutrophils # (A) 4.7 k/uL (1.3-7.7); Neutrophils % (A) 65 %; RBC 3.26 m/uL (3.80-5.40); RDW 15.4 % (11.5-15.5); WBC 7.1 k/uL (3.8-10.6); WBC (Perox) 7.16
[2017-03-05] MEDS: LEVOTHYROXINE 50 MCG TAB PO SCH (06:21)
[2017-03-05] MEDS: HEPARIN SODIUM,PORCINE/D5W PMX 25,000 UNIT in DEXTROSE/WATER 1 500ML.BAG IV SCH ×2 (06:22→10:23)
[2017-03-05 07:09] LABS: Calcium 7.9 mg/dL (8.4-10.2); Magnesium 1.7 mg/dL (1.6-2.3); Phosphorous 3.6 mg/dL (2.5-4.5); Potassium 3.4 mmol/L (3.5-5.1)
[2017-03-05] MEDS: HYDROmorphone 1 MG/ML 1 ML SYRINGE IVP PRN ×3 (07:33→22:36)
[2017-03-05] MEDS: LOSARTAN 50 MG TAB PO SCH (07:56)
[2017-03-05] MEDS: POLYETHYLENE GLYCOL 3350 17 GM POWD.PACK PO SCH (07:56)
[2017-03-05] MEDS: PANTOPRAZOLE 40 MG/10 ML VIAL IVP SCH (07:56)
[2017-03-05] MEDS: FUROSEMIDE 20 MG TAB PO SCH ×2 (07:57→18:39)
[2017-03-05] MEDS: ISOSORBIDE MONONITRATE ER 60 MG TAB.ER.24H PO SCH (07:57)
[2017-03-05] MEDS: METOPROLOL SUCCINATE (ER) 25 MG TAB.ER.24H PO SCH (07:57)
[2017-03-05] MEDS: CLOPIDOGREL 75 MG TAB PO SCH (07:57)
[2017-03-05] MEDS: ASPIRIN 325 MG TAB PO SCH (07:57)
[2017-03-05] MEDS: ALLOPURINOL 100 MG TAB PO SCH (07:57)
[2017-03-05] MEDS: MONTELUKAST 10 MG TAB PO SCH (07:58)
[2017-03-05] MEDS: SODIUM CHLORIDE 0.9% 1,000 ML IV SCH (07:59)
[2017-03-05] MEDS ORDERED: LEVOFLOXACIN 250MG-D5W PMX 250 MG in DEXTROSE/WATER 1 50ML.BAG IVPB SCH (08:00)
--- NOTE | 2017-03-05 09:43 | P.PN ---
Progress Note - Text This is a pleasant 82-year-old female patient with a known moderate to severe aortic stenosis as well as chronic atrial fibrillation was admitted to the hospital was abdominal discomfort and there was some concern regarding ischemic colitis. She was seen and evaluated by general surgeon who recommended no surgical intervention at this point beside advancing her diet. Clinically she denies having any chest pain but she continues to have shortness of breath. The abdomen is soft and nontender. We'll go ahead and start the patient on Coumadin. Currently she is on heparin IV. The plan for the patient is to proceed with plans catheter aortic valve replacement in the next few weeks.
[2017-03-05] MEDS: metroNIDAZOLE-NS PMX 500 MG in SALINE 1 100ML.BAG IVPB SCH ×3 (10:23→23:07)
[2017-03-05] MEDS ORDERED: POTASSIUM CHLORIDE ER 20 MEQ TAB.ER PO STA (13:03)
[2017-03-05] MEDS ORDERED: HYDROcodone/APAP 7.5-325MG 1 EACH TAB PO PRN (13:06)
--- NOTE | 2017-03-05 13:09 | P.PN ---
Subjective Patient complaining of lower back pain and left-sided abdominal pain. The Dilaudid is helping but not lasting long. No further nausea or vomiting. Surgical service has increased diet to soft. Patient denies any chest pain. She is passing gas no bowel movement yet. She feels that she may be able to have a bowel movement soon. Cardiology has started Coumadin for anticoagulation for her A. fib. Objective - Vital Signs Vital signs: Vital Signs Temp 97.1 F L 03/05/17 04:00 Pulse 94 03/05/17 04:00 Resp 16 03/05/17 04:00 BP 131/81 03/05/17 04:00 Pulse Ox 96 03/05/17 04:00 Intake & Output 03/04/17 03/05/17 03/05/17 18:59 06:59 18:59 Intake Total 432.092 421.046 248.645 Balance 432.092 421.046 248.645 Weight 80.5 kg Intake: Intake, IV Titration 432.092 421.046 68.645 Amount Heparin Sodium,Porcine/ 432.092 421.046 68.645 D5w Pmx 25,000 unit In Dextrose/Water 1 500ml. bag @ 12 UNITS/KG/HR 17. 09 mls/hr IV .Q24H [facility] Rx #:[id number] Oral 180 Other: Voiding Method Diaper Diaper # Voids 1 1 1 - Exam Head normocephalic Neck supple Lungs clear to auscultation bilaterally no wheezing or crackles Heart irregular. A. fib on monitor Abdomen is soft nontender nondistended positive bowel sounds no hepatosplenomegaly Extremities no edema Neuro alert and orientated to 3 - Labs CBC & Chem 7: 03/05/17 05:30 03/05/17 05:30 Labs: Abnormal Lab Results - Last 24 Hours (Table) 03/04/17 03/05/17 03/05/17 Range/Units 19:25 05:30 05:30 RBC 3.26 L (3.80-5.40) m/uL Hgb 11.2 L (11.4-16.0) gm/dL Hct 33.7 L (34.0-46.0) % MCV 103.4 H (80.0-100.0) fL Plt Count 130 L (150-450) k/uL APTT 75.7 H (22.0-30.0) sec Potassium 3.4 L (3.5-5.1) mmol/L Chloride 110 H (98-107) mmol/L BUN 27 H (7-17) mg/dL Creatinine 1.07 H (0.52-1.04) mg/dL Calcium 7.9 L (8.4-10.2) mg/dL 03/05/17 03/05/17 Range/Units 05:30 12:18 RBC (3.80-5.40) m/uL Hgb (11.4-16.0) gm/dL Hct (34.0-46.0) % MCV (80.0-100.0) fL Plt Count (150-450) k/uL APTT 89.2 H 50.4 H (22.0-30.0) sec Potassium (3.5-5.1) mmol/L Chloride (98-107) mmol/L BUN (7-17) mg/dL Creatinine (0.52-1.04) mg/dL Calcium (8.4-10.2) mg/dL Assessment and Plan Plan: 1. Acute colitis, with severe nausea: Probably infectious colitis. Patient is currently nothing by mouth for bowel rest. She was started on antibiotic with IV Flagyl and Levaquin. C. diff is less likely as patient is not having diarrhea. Ischemic bowel disease also this less likely as her lactate is normal and her exam is benign. Continue symptomatic management with IV Zofran and Reglan as needed. Patient evaluated by surgical service. They're not recommending any surgical intervention or endoscopy at this time. Continue antibiotics. Surgical service has advance diet to soft 2. New onset atrial fibrillation with rapid ventricular response, currently heart rate well controlled with metoprolol. On anticoagulation with IV heparin. Awaiting further recommendations from cardiology regarding anticoagulation. Neurology has started patient on Coumadin 5 mg tonight. Check PT/INR in a.m. 3. Moderate to severe aortic stenosis currently being evaluated for possible TAVR at [facility]. Repeat echocardiogram showed moderate to severe aortic stenosis, moderate to severe mitral and tricuspid regurgitation. Moderate pulmonary hypertension. Preserved EF of 50% 4. Underlying coronary artery disease 5. Essential hypertension: Blood pressure not well controlled on presentation. Now better controlled. We will continue to monitor. 6. Hypertensive urgency improved with resuming home medications 7. Generalized anxiety disorder: Restart patient's home dose of Xanax 8. Insomnia Will restarts home dose of Ambien 9. Pain control will add [place] 7.5 one every 6 hours as needed for pain I performed an examination of the patient and discussed their management with the physician Passenger T[employer] Inspector. I have reviewed the Physician Passenger T[employer] Inspector's notes and agree with the documented findings and plan of care
--- NOTE | 2017-03-05 14:14 | P.PN ---
Subjective Principal diagnosis: Colitis Patient doing better today. Still complaining of some left-sided back pain. No abdominal pain. She is tolerating her diet. Minimal nausea filling station laborer resolved now. White blood cell count is normal. Objective - Vital Signs Vital signs: Vital Signs Temp 97.1 F L 03/05/17 04:00 Pulse 94 03/05/17 04:00 Resp 16 03/05/17 04:00 BP 131/81 03/05/17 04:00 Pulse Ox 96 03/05/17 04:00 Intake & Output 03/04/17 03/05/17 03/05/17 18:59 06:59 18:59 Intake Total 432.092 421.046 248.645 Balance 432.092 421.046 248.645 Weight 80.5 kg Intake: Intake, IV Titration 432.092 421.046 68.645 Amount Heparin Sodium,Porcine/ 432.092 421.046 68.645 D5w Pmx 25,000 unit In Dextrose/Water 1 500ml. bag @ 12 UNITS/KG/HR 17. 09 mls/hr IV .Q24H [facility] Rx #:[id number] Oral 180 Other: Voiding Method Diaper Diaper # Voids 1 1 1 - Exam Abdomen: Soft, nontender, nondistended - Labs CBC & Chem 7: 03/05/17 05:30 03/05/17 05:30 Labs: Abnormal Lab Results - Last 24 Hours (Table) 03/04/17 03/05/17 03/05/17 Range/Units 19:25 05:30 05:30 RBC 3.26 L (3.80-5.40) m/uL Hgb 11.2 L (11.4-16.0) gm/dL Hct 33.7 L (34.0-46.0) % MCV 103.4 H (80.0-100.0) fL Plt Count 130 L (150-450) k/uL APTT 75.7 H (22.0-30.0) sec Potassium 3.4 L (3.5-5.1) mmol/L Chloride 110 H (98-107) mmol/L BUN 27 H (7-17) mg/dL Creatinine 1.07 H (0.52-1.04) mg/dL Calcium 7.9 L (8.4-10.2) mg/dL 03/05/17 03/05/17 Range/Units 05:30 12:18 RBC (3.80-5.40) m/uL Hgb (11.4-16.0) gm/dL Hct (34.0-46.0) % MCV (80.0-100.0) fL Plt Count (150-450) k/uL APTT 89.2 H 50.4 H (22.0-30.0) sec Potassium (3.5-5.1) mmol/L Chloride (98-107) mmol/L BUN (7-17) mg/dL Creatinine (0.52-1.04) mg/dL Calcium (8.4-10.2) mg/dL Assessment and Plan (1) Colitis Narrative/Plan: Continue soft diet. Ambulate. No surgical intervention planned. Please contact if the patient develops abdominal pain or diarrhea. We'll sign off. Please contact if needed. Status: Acute
[2017-03-05] MEDS ORDERED: WARFARIN 5 MG TAB PO ONE (18:00)
[2017-03-05] MEDS: HYDROcodone/APAP 7.5-325MG 1 EACH TAB PO PRN (19:52)
[2017-03-05] MEDS: ATORVASTATIN 40 MG TAB PO SCH (19:52)
[2017-03-05] MEDS: ZOLPIDEM 5 MG TAB PO SCH (22:36)
[2017-03-06] MEDS: HYDROmorphone 1 MG/ML 1 ML SYRINGE IVP PRN ×3 (02:01→12:38)
[2017-03-06] MEDS: SODIUM CHLORIDE 0.9% 1,000 ML IV SCH ×2 (05:16→06:32)
[2017-03-06 06:28] LABS: Basophils % (A) 0 %; CH 34.8; CHCM 32.2; Eosinophils # (A) 0.1 k/uL (0-0.7); Eosinophils % (A) 1 %; HCT 32.9 % (34.0-46.0); HDW 2.56; HGB 10.4 gm/dL (11.4-16.0); Luc # (Auto) 0.19; Luc % (Auto) 3; Lymphocytes # (A) 1.2 k/uL (1.0-4.8); Lymphocytes % (A) 17 %; MCH 34.5 pg (25.0-35.0); MCHC 31.7 g/dL (31.0-37.0); Macrocytosis Marked; Mean Platelet Volume 9.3; Monocytes # (A) 0.6 k/uL (0-1.0); Monocytes % (A) 8 %; Neutrophils # (A) 4.9 k/uL (1.3-7.7); Neutrophils % (A) 70 %; RBC 3.02 m/uL (3.80-5.40); RDW 15.9 % (11.5-15.5); WBC 6.9 k/uL (3.8-10.6); WBC (Perox) 7.51
[2017-03-06] MEDS: LEVOTHYROXINE 50 MCG TAB PO SCH (06:28)
[2017-03-06] MEDS: HEPARIN SODIUM,PORCINE/D5W PMX 25,000 UNIT in DEXTROSE/WATER 1 500ML.BAG IV SCH (06:31)
[2017-03-06 06:32] LABS: INR 1.3 (<1.2); Partial Thromboplastin Time 56.3 sec (22.0-30.0); Prothrombin Time 12.6 sec (9.0-12.0)
[2017-03-06 06:35] LABS: MCV 108.8 fL (80.0-100.0)
[2017-03-06 07:22] LABS: Polychromasia Present
[2017-03-06 08:02] LABS: Calcium 7.9 mg/dL (8.4-10.2); Magnesium 1.6 mg/dL (1.6-2.3); Phosphorous 3.8 mg/dL (2.5-4.5); Potassium 3.8 mmol/L (3.5-5.1)
[2017-03-06] MEDS: metroNIDAZOLE-NS PMX 500 MG in SALINE 1 100ML.BAG IVPB SCH ×2 (08:38→15:34)
[2017-03-06] MEDS: FUROSEMIDE 20 MG TAB PO SCH ×2 (08:41→15:35)
[2017-03-06] MEDS: ISOSORBIDE MONONITRATE ER 60 MG TAB.ER.24H PO SCH (08:41)
[2017-03-06] MEDS: CLOPIDOGREL 75 MG TAB PO SCH (08:41)
[2017-03-06] MEDS: ALLOPURINOL 100 MG TAB PO SCH ×2 (08:41→08:59)
[2017-03-06] MEDS: LOSARTAN 50 MG TAB PO SCH (08:41)
[2017-03-06] MEDS: LEVOFLOXACIN 250 MG TAB PO SCH (08:42)
[2017-03-06] MEDS: ASPIRIN 325 MG TAB PO SCH (08:42)
[2017-03-06] MEDS: MONTELUKAST 10 MG TAB PO SCH (08:42)
[2017-03-06] MEDS: PANTOPRAZOLE 40 MG/10 ML VIAL IVP SCH (08:45)
[2017-03-06] MEDS: POLYETHYLENE GLYCOL 3350 17 GM POWD.PACK PO SCH (08:45)
[2017-03-06] MEDS ORDERED: METOPROLOL SUCCINATE (ER) 50 MG TAB.ER.24H PO SCH (09:00)
--- NOTE | 2017-03-06 11:41 | P.PN ---
Subjective Principal diagnosis: Aortic stenosis/A. fib This is a pleasant 82-year-old female patient with a known moderate to severe aortic stenosis as well as chronic atrial fibrillation was admitted to the hospital was abdominal discomfort and there was some concern regarding ischemic colitis. She was seen and evaluated by general surgeon who recommended no surgical intervention at this point beside advancing her diet. Clinically she denies having any chest pain but she continues to have shortness of breath. The abdomen is slightly tender today. She was started on Coumadin yesterday and the INR is still subtherapeutic. Hemodynamically she continues to be slightly tachycardic and I would increase the dose of Toprol-XL. Objective - Vital Signs Vital signs: Vital Signs Temp 97 F L 03/06/17 08:00 Pulse 113 H 03/06/17 08:00 Resp 19 03/06/17 08:00 BP 126/90 03/06/17 08:00 Pulse Ox 93 L 03/06/17 08:49 Intake & Output 03/05/17 03/06/17 03/06/17 18:59 06:59 18:59 Intake Total 608.645 347.782 150 Output Total 500 Balance 608.645 -152.218 150 Weight 98.1 kg Intake: IV 75 Sodium Chloride 0.9% 1, 75 000 ml @ 75 mls/hr IV . [id number] [facility] Rx#:[id number] Intake, IV Titration 68.645 347.782 75 Amount Heparin Sodium,Porcine/ 68.645 347.782 D5w Pmx 25,000 unit In Dextrose/Water 1 500ml. bag @ 12 UNITS/KG/HR 17. 09 mls/hr IV .Q24H [facility] Rx #:[id number] Sodium Chloride 0.9% 1, 75 000 ml @ 75 mls/hr IV . [id number] [facility] Rx#:[id number] Oral 540 Output: Urine 500 Other: Voiding Method Diaper Diaper # Voids 1 1 - Constitutional General appearance: Present: no acute distress - Respiratory Respiratory: bilateral: diminished - Cardiovascular Rhythm: irregularly irregular Heart sounds: normal: S1, S2 Abnormal Heart Sounds: Present: systolic murmur - Labs CBC & Chem 7: 03/06/17 05:58 03/06/17 05:58 Labs: Abnormal Lab Results - Last 24 Hours (Table) 03/05/17 03/06/17 03/06/17 Range/Units 12:18 05:58 05:58 RBC 3.02 L (3.80-5.40) m/uL Hgb 10.4 L (11.4-16.0) gm/dL Hct 32.9 L (34.0-46.0) % MCV 108.8 H D (80.0-100.0) fL RDW 15.9 H (11.5-15.5) % Plt Count 137 L (150-450) k/uL PT (9.0-12.0) sec INR (<1.2) APTT 50.4 H (22.0-30.0) sec Chloride 112 H (98-107) mmol/L Carbon Dioxide 19 L (22-30) mmol/L BUN 24 H (7-17) mg/dL Creatinine 1.09 H (0.52-1.04) mg/dL Glucose 102 H (74-99) mg/dL Calcium 7.9 L (8.4-10.2) mg/dL 03/06/17 Range/Units 05:58 RBC (3.80-5.40) m/uL Hgb (11.4-16.0) gm/dL Hct (34.0-46.0) % MCV (80.0-100.0) fL RDW (11.5-15.5) % Plt Count (150-450) k/uL PT 12.6 H (9.0-12.0) sec INR 1.3 H (<1.2) APTT 56.3 H (22.0-30.0) sec Chloride (98-107) mmol/L Carbon Dioxide (22-30) mmol/L BUN (7-17) mg/dL Creatinine (0.52-1.04) mg/dL Glucose (74-99) mg/dL Calcium (8.4-10.2) mg/dL Assessment and Plan Plan: This is a pleasant 82-year-old female patient was noted to have moderate to severe aortic stenosis was admitted to the hospital with nausea, abdominal pain. She is in A. fib with slightly uncontrolled heart rates. I am going to ask surgeon to assess the patient again. I will increase the dose of Toprol-XL. Continue Coumadin and continue monitor the INR. Possible discharge home tomorrow.
--- NOTE | 2017-03-06 13:44 | P.PN ---
Subjective Patient complaining of lower back pain and left-sided abdominal pain. The Dilaudid is helping but not lasting long. No further nausea or vomiting. Surgical service has increased diet to soft. Patient denies any chest pain. She is passing gas no bowel movement yet. She feels that she may be able to have a bowel movement soon. Cardiology has started Coumadin for anticoagulation for her A. fib. On 03/06/2017 patient is now complaining of right upper quadrant abdominal pain , that's moderately severe this pain is new for her Otherwise she is denying any complaints at this time Objective - Vital Signs Vital signs: Vital Signs Temp 97 F L 03/06/17 08:00 Pulse 101 H 03/06/17 12:00 Resp 18 03/06/17 12:00 BP 129/90 03/06/17 12:00 Pulse Ox 96 03/06/17 12:00 Intake & Output 03/05/17 03/06/17 03/06/17 18:59 06:59 18:59 Intake Total 608.645 347.782 630 Output Total 500 Balance 608.645 -152.218 630 Weight 98.1 kg Intake: IV 75 Sodium Chloride 0.9% 1, 75 000 ml @ 75 mls/hr IV . [id number] [facility] Rx#:[id number] Intake, IV Titration 68.645 347.782 75 Amount Heparin Sodium,Porcine/ 68.645 347.782 D5w Pmx 25,000 unit In Dextrose/Water 1 500ml. bag @ 12 UNITS/KG/HR 17. 09 mls/hr IV .Q24H [facility] Rx #:[id number] Sodium Chloride 0.9% 1, 75 000 ml @ 75 mls/hr IV . [id number] [facility] Rx#:[id number] Oral 540 480 Output: Urine 500 Other: Voiding Method Diaper Diaper # Voids 1 1 - Exam In general patient is alert and oriented 3 in no apparent distress HEENT head normocephalic and atraumatic Neck is supple no JVD no goiter no lymphadenopathy Chest exam reveals a few scattered crackles no wheezing Cardiac exam reveals regular heart sounds no murmurs Abdomen is soft with moderate tenderness in the right upper quadrant no organomegaly Extremity exam reveals no edema no cyanosis or clubbing - Labs CBC & Chem 7: 03/06/17 05:58 03/06/17 05:58 Labs: Abnormal Lab Results - Last 24 Hours (Table) 03/06/17 03/06/17 03/06/17 Range/Units 05:58 05:58 05:58 RBC 3.02 L (3.80-5.40) m/uL Hgb 10.4 L (11.4-16.0) gm/dL Hct 32.9 L (34.0-46.0) % MCV 108.8 H D (80.0-100.0) fL RDW 15.9 H (11.5-15.5) % Plt Count 137 L (150-450) k/uL PT 12.6 H (9.0-12.0) sec INR 1.3 H (<1.2) APTT 56.3 H (22.0-30.0) sec Chloride 112 H (98-107) mmol/L Carbon Dioxide 19 L (22-30) mmol/L BUN 24 H (7-17) mg/dL Creatinine 1.09 H (0.52-1.04) mg/dL Glucose 102 H (74-99) mg/dL Calcium 7.9 L (8.4-10.2) mg/dL Assessment and Plan Plan: 1. Acute colitis, with severe nausea: Probably infectious colitis. Patient is currently nothing by mouth for bowel rest. She was started on antibiotic with IV Flagyl and Levaquin. C. diff is less likely as patient is not having diarrhea. Ischemic bowel disease also this less likely as her lactate is normal and her exam is benign. Continue symptomatic management with IV Zofran and Reglan as needed. Patient evaluated by surgical service. They're not recommending any surgical intervention or endoscopy at this time. Continue antibiotics. Surgical service has advance diet to soft Due to right upper quadrant abdominal pain today Will check abdomen computed tomography scan without contrast, patient had previous history of cholecystectomy. 2. New onset atrial fibrillation with rapid ventricular response, currently heart rate well controlled with metoprolol. On anticoagulation with IV heparin. Awaiting further recommendations from cardiology regarding anticoagulation. Neurology has started patient on Coumadin 5 mg tonight. Check PT/INR in a.m. 3. Moderate to severe aortic stenosis currently being evaluated for possible TAVR at [facility]. Repeat echocardiogram showed moderate to severe aortic stenosis, moderate to severe mitral and tricuspid regurgitation. Moderate pulmonary hypertension. Preserved EF of 50% 4. Underlying coronary artery disease 5. Essential hypertension: Blood pressure not well controlled on presentation. Now better controlled. We will continue to monitor. 6. Hypertensive urgency improved with resuming home medications 7. Generalized anxiety disorder: Restart patient's home dose of Xanax 8. Insomnia Will restarts home dose of Ambien 9. Pain control will add [place] 7.5 one every 6 hours as needed for pain
[2017-03-06] MEDS: HYDROcodone/APAP 7.5-325MG 1 EACH TAB PO PRN (15:40)
--- NOTE | 2017-03-06 16:52 | CT ---
EXAMINATION TYPE: CT abdomen pelvis wo con DATE OF EXAM: 03/06/2017 COMPARISON: 03/02/2017 HISTORY: 82-year-old female with Right sided abdominal pain x [address] DLP: 687.80 mGycm. Automated exposure control for dose reduction was used. TECHNIQUE: Contiguous axial scanning of the abdomen and pelvis without IV contrast. Coronal and sagit ambar reconstructions performed. FINDINGS: Heart is upper limits of normal in size without pericardial effusion. Dense mitral annular calcificat ions are present. There are new small pleural effusions with mild adjacent atelectasis. Progressive diffuse anasarca type changes with a bilateral flank edema and mild haziness throughout t he intra-abdominal fat as well. As compared to prior exam, there is new abnormal hyperdense thickening of the right upper quadrant ab dominal wall musculature anterior to the liver. This thickening measures up to 2.7 cm versus 0.9 cm o n the previous normal-appearing abdominal wall musculature. 1.7 cm hypodense lesion inferior right liver lobe is unchanged, likely a cyst. Cholecystectomy clips are present. Noncontrast appearance of the kidneys, spleen, a atrophic pancreas show no gross abnormality. Assessm ent is limited due to lack of IV contrast and intra-abdominal fat edematous change. Moderate atherosclerotic calcifications are abdominal aorta and arteries with a prominent apical scar ring calcifications at the origin of the visceral arteries. Mild dilatation of the infrarenal abdomin al aorta 2.4 cm. No aneurysm or significant ectasia. Few prominent retroperitoneal lymph nodes measure up to 5 mm. No mesenteric lymphadenopathy seen. There is improved appearance to the hepatic flexure on the present exam. Oral contrast has made its w ay to the rectum. Sigmoid diverticulosis. Prominent urinary bladder distention. Trace pelvic free fluid demonstrated. Uterus not seen, likely s urgically absent. 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 Advanced disc/endplate degene rative change at T11-T12 as well. IMPRESSION: 1. Intramuscular hemorrhage expanding the right upper quadrant abdominal wall musculature. This is t hickened up to 2.7 cm versus 0.9 cm on 03/02/2017. Correlate with patient's anticoagulation status. 2. Correlate for fluid overload as there is progressive diffuse anasarca-type change with new small effusions as well. Trace pelvic free fluid is unchanged. 3. Improved appearance to the colon. No focal inflammation seen in the colon. 4. Sigmoid diverticulosis.
[2017-03-06] MEDS ORDERED: WARFARIN 5 MG TAB PO ONE (18:00)
[2017-03-06] MEDS: ATORVASTATIN 40 MG TAB PO SCH (21:56)
[2017-03-06] MEDS: ZOLPIDEM 5 MG TAB PO SCH (21:56)
[2017-03-06] MEDS: metroNIDAZOLE 500 MG TAB PO SCH (23:11)
[2017-03-07] MEDS: MAGNESIUM SULFATE-D5W PMX 1 GM in DEXTROSE/WATER 1 100ML.BAG IVPB SCH ×2 (02:36→03:43)
[2017-03-07] MEDS: HYDROcodone/APAP 7.5-325MG 1 EACH TAB PO PRN ×3 (03:43→21:22)
[2017-03-07] MEDS: SODIUM CHLORIDE 0.9% 1,000 ML IV SCH (06:21)
[2017-03-07] MEDS: LEVOTHYROXINE 50 MCG TAB PO SCH (06:22)
[2017-03-07] MEDS: PANTOPRAZOLE 40 MG TABLET PO SCH (06:22)
[2017-03-07 06:52] LABS: Basophils % (A) 0 %; CH 34.8; CHCM 33.7; Eosinophils # (A) 0.2 k/uL (0-0.7); Eosinophils % (A) 3 %; HCT 33.3 % (34.0-46.0); HDW 2.64; HGB 11.2 gm/dL (11.4-16.0); Luc # (Auto) 0.17; Luc % (Auto) 2; Lymphocytes # (A) 1.9 k/uL (1.0-4.8); Lymphocytes % (A) 22 %; MCH 35.1 pg (25.0-35.0); MCHC 33.8 g/dL (31.0-37.0); MCV 103.9 fL (80.0-100.0); Macrocytosis Moderate; Mean Platelet Volume 8.9; Monocytes # (A) 0.6 k/uL (0-1.0); Monocytes % (A) 7 %; Neutrophils # (A) 5.9 k/uL (1.3-7.7); Neutrophils % (A) 67 %; RDW 15.9 % (11.5-15.5); WBC 8.7 k/uL (3.8-10.6); WBC (Perox) 8.89
[2017-03-07 06:56] LABS: INR 1.4 (<1.2); Partial Thromboplastin Time 27.9 sec (22.0-30.0); Prothrombin Time 13.5 sec (9.0-12.0)
[2017-03-07 08:08] LABS: Calcium 7.9 mg/dL (8.4-10.2); Magnesium 2.2 mg/dL (1.6-2.3); Phosphorous 3.2 mg/dL (2.5-4.5); Potassium 4.1 mmol/L (3.5-5.1)
--- NOTE | 2017-03-07 09:24 | P.PN ---
Subjective Patient complaining of lower back pain and left-sided abdominal pain. The Dilaudid is helping but not lasting long. No further nausea or vomiting. Surgical service has increased diet to soft. Patient denies any chest pain. She is passing gas no bowel movement yet. She feels that she may be able to have a bowel movement soon. Cardiology has started Coumadin for anticoagulation for her A. fib. On 03/06/2017 patient is now complaining of right upper quadrant abdominal pain , that's moderately severe this pain is new for her Otherwise she is denying any complaints at this time On 03/07/2017 patient was seen and evaluated pain in the right upper quadrant remains I have ordered a computed tomography scan of the abdomen yesterday without contrast and this has revealed evidence of abdominal wall hematoma, this was discussed was Dr. Tinoco senior storage engineer and Coumadin and heparin were discontinued. Patient denies any new complaints at this time. Objective - Vital Signs Vital signs: Vital Signs Temp 97 F L 03/07/17 04:00 Pulse 111 H 03/07/17 04:00 Resp 16 03/07/17 04:00 BP 141/95 03/07/17 04:00 Pulse Ox 97 03/07/17 04:00 Intake & Output 03/06/17 03/07/17 03/07/17 18:59 06:59 18:59 Intake Total 1620 875 125 Output Total 200 250 Balance 1620 675 -125 Weight 80.1 kg Intake: IV 625 675 Sodium Chloride 0.9% 1, 625 675 000 ml @ 75 mls/hr IV . [id number] [facility] Rx#:[id number] Intake, IV Titration 275 200 Amount Magnesium Sulfate-D5w Pmx 200 1 gm In Dextrose/Water 1 100ml.bag @ 100 mls/hr IVPB Q1H [facility] Rx#: [id number] Sodium Chloride 0.9% 1, 75 000 ml @ 75 mls/hr IV . [id number] [facility] Rx#:[id number] metroNIDAZOLE-NS PMX 500 200 mg In Saline 1 100ml.bag @ 100 mls/hr IVPB Q8HR [facility] Rx#:[id number] Oral 720 125 Output: Urine 200 250 Other: Voiding Method Diaper # Voids 2 # Bowel Movements 1 - Exam In general patient is alert and oriented 3 in no apparent distress HEENT head normocephalic and atraumatic Neck is supple no JVD no goiter no lymphadenopathy Chest exam reveals a few scattered crackles no wheezing Cardiac exam reveals regular heart sounds no murmurs Abdomen is soft with moderate tenderness in the right upper quadrant no organomegaly Extremity exam reveals no edema no cyanosis or clubbing - Labs CBC & Chem 7: 03/07/17 06:17 03/07/17 06:17 Labs: Abnormal Lab Results - Last 24 Hours (Table) 03/07/17 03/07/17 03/07/17 Range/Units 06:17 06:17 06:17 RBC 3.20 L (3.80-5.40) m/uL Hgb 11.2 L (11.4-16.0) gm/dL Hct 33.3 L (34.0-46.0) % MCV 103.9 H (80.0-100.0) fL MCH 35.1 H (25.0-35.0) pg RDW 15.9 H (11.5-15.5) % Plt Count 146 L (150-450) k/uL PT 13.5 H (9.0-12.0) sec INR 1.4 H (<1.2) Chloride 110 H (98-107) mmol/L Carbon Dioxide 20 L (22-30) mmol/L BUN 25 H (7-17) mg/dL Creatinine 1.12 H (0.52-1.04) mg/dL Calcium 7.9 L (8.4-10.2) mg/dL Assessment and Plan Plan: 1. Acute colitis, with severe nausea: Probably infectious colitis. Patient is currently nothing by mouth for bowel rest. She was started on antibiotic with IV Flagyl and Levaquin. C. diff is less likely as patient is not having diarrhea. Ischemic bowel disease also this less likely as her lactate is normal and her exam is benign. Continue symptomatic management with IV Zofran and Reglan as needed. Patient evaluated by surgical service. They're not recommending any surgical intervention or endoscopy at this time. Continue antibiotics. Surgical service has advance diet to soft Due to right upper quadrant abdominal pain today Will check abdomen computed tomography scan without contrast, patient had previous history of cholecystectomy. Computed tomography scan of the abdomen revealed evidence of abdominal wall hematoma, anticoagulation were held, will monitor closely. 2. New onset atrial fibrillation with rapid ventricular response, currently heart rate well controlled with metoprolol. On anticoagulation with IV heparin. Awaiting further recommendations from cardiology regarding anticoagulation. Neurology has started patient on Coumadin 5 mg tonight. Check PT/INR in a.m. 3. Moderate to severe aortic stenosis currently being evaluated for possible TAVR at [facility]. Repeat echocardiogram showed moderate to severe aortic stenosis, moderate to severe mitral and tricuspid regurgitation. Moderate pulmonary hypertension. Preserved EF of 50% 4. Underlying coronary artery disease 5. Essential hypertension: Blood pressure not well controlled on presentation. Now better controlled. We will continue to monitor. 6. Hypertensive urgency improved with resuming home medications 7. Generalized anxiety disorder: Restart patient's home dose of Xanax 8. Insomnia Will restarts home dose of Ambien 9. Pain control will add [place] 7.5 one every 6 hours as needed for pain
[2017-03-07] MEDS ORDERED: FUROSEMIDE 10 MG/ML 2 ML VIAL IV ONE (09:25)
[2017-03-07] MEDS: metroNIDAZOLE 500 MG TAB PO SCH ×3 (09:47→23:13)
[2017-03-07] MEDS: ALLOPURINOL 100 MG TAB PO SCH (09:48)
[2017-03-07] MEDS: FUROSEMIDE 20 MG TAB PO SCH ×2 (09:48→15:59)
[2017-03-07] MEDS: CLOPIDOGREL 75 MG TAB PO SCH (09:48)
[2017-03-07] MEDS: LOSARTAN 50 MG TAB PO SCH (09:48)
[2017-03-07] MEDS: MONTELUKAST 10 MG TAB PO SCH (09:48)
[2017-03-07] MEDS: ISOSORBIDE MONONITRATE ER 60 MG TAB.ER.24H PO SCH (09:48)
[2017-03-07] MEDS: LEVOFLOXACIN 250 MG TAB PO SCH (09:49)
[2017-03-07] MEDS: METOPROLOL SUCCINATE (ER) 50 MG TAB.ER.24H PO SCH (09:49)
[2017-03-07] MEDS: POLYETHYLENE GLYCOL 3350 17 GM POWD.PACK PO SCH (09:50)
[2017-03-07] MEDS: ASPIRIN 325 MG TAB PO SCH (09:56)
--- NOTE | 2017-03-07 10:17 | P.PN ---
Subjective Principal diagnosis: Aortic stenosis/A. fib This is a pleasant 82-year-old female patient with a known moderate to severe aortic stenosis as well as chronic atrial fibrillation was admitted to the hospital was abdominal discomfort and there was some concern regarding ischemic colitis. She was seen and evaluated by general surgeon who recommended no surgical intervention at this point beside advancing her diet. She was experiencing right-sided abdominal discomfort yesterday. She underwent a computed tomography scan of the abdomen which showed abdominal wall hematoma. In review of that, I stopped Coumadin and also I stopped the heparin on her. I'll follow-up with her today, she is feeling slightly better. She denies having any chest pain or discomfort. She still have tenderness in the right upper quadrant. Hemodynamically the heart rate has been under good control on the current dose of Toprol-XL. Objective - Vital Signs Vital signs: Vital Signs Temp 97 F L 03/07/17 04:00 Pulse 111 H 03/07/17 04:00 Resp 16 03/07/17 04:00 BP 141/95 03/07/17 04:00 Pulse Ox 97 03/07/17 04:00 Intake & Output 03/06/17 03/07/17 03/07/17 18:59 06:59 18:59 Intake Total 1620 875 125 Output Total 200 250 Balance 1620 675 -125 Weight 80.1 kg Intake: IV 625 675 Sodium Chloride 0.9% 1, 625 675 000 ml @ 75 mls/hr IV . [id number] [facility] Rx#:[id number] Intake, IV Titration 275 200 Amount Magnesium Sulfate-D5w Pmx 200 1 gm In Dextrose/Water 1 100ml.bag @ 100 mls/hr IVPB Q1H [facility] Rx#: [id number] Sodium Chloride 0.9% 1, 75 000 ml @ 75 mls/hr IV . [id number] [facility] Rx#:[id number] metroNIDAZOLE-NS PMX 500 200 mg In Saline 1 100ml.bag @ 100 mls/hr IVPB Q8HR [facility] Rx#:[id number] Oral 720 125 Output: Urine 200 250 Other: Voiding Method Diaper # Voids 2 # Bowel Movements 1 - Constitutional General appearance: Present: no acute distress - Respiratory Respiratory: bilateral: diminished - Cardiovascular Rhythm: irregularly irregular Heart sounds: normal: S1, S2 Abnormal Heart Sounds: Present: systolic murmur - Labs CBC & Chem 7: 03/07/17 06:17 03/07/17 06:17 Labs: Abnormal Lab Results - Last 24 Hours (Table) 03/07/17 03/07/17 03/07/17 Range/Units 06:17 06:17 06:17 RBC 3.20 L (3.80-5.40) m/uL Hgb 11.2 L (11.4-16.0) gm/dL Hct 33.3 L (34.0-46.0) % MCV 103.9 H (80.0-100.0) fL MCH 35.1 H (25.0-35.0) pg RDW 15.9 H (11.5-15.5) % Plt Count 146 L (150-450) k/uL PT 13.5 H (9.0-12.0) sec INR 1.4 H (<1.2) Chloride 110 H (98-107) mmol/L Carbon Dioxide 20 L (22-30) mmol/L BUN 25 H (7-17) mg/dL Creatinine 1.12 H (0.52-1.04) mg/dL Calcium 7.9 L (8.4-10.2) mg/dL Assessment and Plan Plan: This is a pleasant 82-year-old female patient was noted to have moderate to severe aortic stenosis was admitted to the hospital with nausea, abdominal pain. She is in A. fib with slightly uncontrolled heart rates. The patient developed abdominal wall hematoma. Heparin and Coumadin are on hold at this point. We'll continue following up with her.
[2017-03-07] MEDS: ATORVASTATIN 40 MG TAB PO SCH (21:11)
[2017-03-07] MEDS: ZOLPIDEM 5 MG TAB PO SCH (21:11)
[2017-03-08 06:27] LABS: Anisocytosis Slight; Basophils % (A) 0 %; CH 35.1; CHCM 32.8; Eosinophils # (A) 0.3 k/uL (0-0.7); Eosinophils % (A) 4 %; HCT 33.9 % (34.0-46.0); HDW 2.66; HGB 10.8 gm/dL (11.4-16.0); Luc # (Auto) 0.19; Luc % (Auto) 3; Lymphocytes # (A) 1.7 k/uL (1.0-4.8); Lymphocytes % (A) 22 %; MCH 34.4 pg (25.0-35.0); MCHC 31.9 g/dL (31.0-37.0); Macrocytosis Marked; Mean Platelet Volume 9.4; Monocytes # (A) 0.5 k/uL (0-1.0); Monocytes % (A) 7 %; Neutrophils # (A) 4.8 k/uL (1.3-7.7); Neutrophils % (A) 64 %; RBC 3.14 m/uL (3.80-5.40); RDW 16.5 % (11.5-15.5); WBC 7.5 k/uL (3.8-10.6); WBC (Perox) 8.01
[2017-03-08] MEDS: PANTOPRAZOLE 40 MG TABLET PO SCH (06:28)
[2017-03-08] MEDS: LEVOTHYROXINE 50 MCG TAB PO SCH (06:28)
[2017-03-08 06:39] LABS: MCV 108.1 fL (80.0-100.0)
[2017-03-08 06:54] LABS: Magnesium 1.8 mg/dL (1.6-2.3); Potassium 3.6 mmol/L (3.5-5.1); Total Bilirubin 0.4 mg/dL (0.2-1.3); Total Protein 4.8 g/dL (6.3-8.2)
[2017-03-08] MEDS ORDERED: POLYETHYLENE GLYCOL 3350 17 GM POWD.PACK PO PRN (10:32)
--- NOTE | 2017-03-08 10:40 | P.PN ---
Subjective Patient complaining of lower back pain and left-sided abdominal pain. The Dilaudid is helping but not lasting long. No further nausea or vomiting. Surgical service has increased diet to soft. Patient denies any chest pain. She is passing gas no bowel movement yet. She feels that she may be able to have a bowel movement soon. Cardiology has started Coumadin for anticoagulation for her A. fib. 03/08/2017 patient is complaining of right upper quadrant pain that is remaining about the same. Computed tomography scan of the abdomen had shown an abdominal wall hematoma. Cardiology discontinued the Coumadin and heparin. Patient reports that her stools have become loose she had one loose bowel movement yesterday. This was related to the MiraLAX which she states she really takes as needed and here she has been taking it daily. This will be changed. She also has evidence of fluid overload and received 1 dose of IV Lasix. Patient denies any chest pain or shortness of breath. Denies a nausea or vomiting. Denies any burning with urination area and she does admit to feeling weak with any activity Objective - Vital Signs Vital signs: Vital Signs Temp 97.4 F L 03/08/17 10:22 Pulse 112 H 03/08/17 10:22 Resp 16 03/08/17 10:22 BP 127/76 03/08/17 10:22 Pulse Ox 95 03/08/17 10:22 Intake & Output 03/07/17 03/08/17 03/08/17 18:59 06:59 18:59 Intake Total 825 180 Output Total 800 150 Balance 25 30 Weight 78 kg Intake: IV 180 0.9 @20mls/hr 180 Oral 825 Output: Urine 800 150 Other: Voiding Method Diaper Toilet Incontinent Bedpan Diaper # Bowel Movements 1 - Exam Head normocephalic Neck supple Lungs clear to auscultation bilaterally no wheezing or crackles Heart irregular. A. fib on monitor Abdomen is soft nondistended tenderness with palpation of the right upper quadrant no bruising or discoloration noted to the skin Extremities no edema Neuro alert and orientated to 3 - Labs CBC & Chem 7: 03/08/17 06:06 03/08/17 06:06 Labs: Abnormal Lab Results - Last 24 Hours (Table) 03/08/17 03/08/17 Range/Units 06:06 06:06 RBC 3.14 L (3.80-5.40) m/uL Hgb 10.8 L (11.4-16.0) gm/dL Hct 33.9 L (34.0-46.0) % MCV 108.1 H (80.0-100.0) fL RDW 16.5 H (11.5-15.5) % Plt Count 135 L (150-450) k/uL Chloride 110 H (98-107) mmol/L Carbon Dioxide 21 L (22-30) mmol/L BUN 30 H (7-17) mg/dL Creatinine 1.19 H (0.52-1.04) mg/dL Glucose 121 H (74-99) mg/dL Calcium 8.0 L (8.4-10.2) mg/dL Total Protein 4.8 L (6.3-8.2) g/dL Albumin 2.6 L (3.5-5.0) g/dL Assessment and Plan Plan: 1. Acute colitis, with severe nausea: Probably infectious colitis. She was started on antibiotic with IV Flagyl and Levaquin. C. diff is less likely as patient is not having diarrhea. Ischemic bowel disease also this less likely as her lactate is normal and her exam is benign. Continue symptomatic management with IV Zofran and Reglan as needed. Patient evaluated by surgical service. They're not recommending any surgical intervention or endoscopy at this time. Continue antibiotics. Continue soft diet. 2. New onset atrial fibrillation with rapid ventricular response, currently heart rate well controlled with metoprolol. Coumadin and heparin had to be discontinued due to an abdominal wall hematoma 3. Moderate to severe aortic stenosis currently being evaluated for possible TAVR at [facility]. Repeat echocardiogram showed moderate to severe aortic stenosis, moderate to severe mitral and tricuspid regurgitation. Moderate pulmonary hypertension. Preserved EF of 50% 4. Underlying coronary artery disease 5. Essential hypertension: Blood pressure not well controlled on presentation. Now better controlled. We will continue to monitor. 6. Hypertensive urgency improved with resuming home medications 7. Generalized anxiety disorder: Restart patient's home dose of Xanax 8. Insomnia Will restarts home dose of Ambien 9. Abdominal wall hematoma: IV heparin and Coumadin have been discontinued 10. Fluid overload. Patient did receive 1 dose of IV Lasix. 11. Acute on chronic kidney disease, stage IIIB. Slight rising creatinine up to 1.19 after receiving IV Lasix. Continue to monitor I performed an examination of the patient and discussed their management with the physician Per Diem Nurse. I have reviewed the Physician Per Diem Nurse's notes and agree with the documented findings and plan of care
[2017-03-08] MEDS ORDERED: POTASSIUM CHLORIDE ER 20 MEQ TAB.ER PO SCH (11:00)
[2017-03-08] MEDS: METOPROLOL SUCCINATE (ER) 50 MG TAB.ER.24H PO SCH (11:53)
[2017-03-08] MEDS: MAGNESIUM SULFATE-D5W PMX 1 GM in DEXTROSE/WATER 1 100ML.BAG IVPB SCH ×2 (11:53→15:10)
[2017-03-08] MEDS: LOSARTAN 50 MG TAB PO SCH (11:54)
[2017-03-08] MEDS: ISOSORBIDE MONONITRATE ER 60 MG TAB.ER.24H PO SCH (11:54)
[2017-03-08] MEDS: CLOPIDOGREL 75 MG TAB PO SCH (11:54)
[2017-03-08] MEDS: metroNIDAZOLE 500 MG TAB PO SCH ×2 (11:55→15:39)
--- NOTE | 2017-03-08 15:14 | P.PN ---
Subjective This is a pleasant 82-year-old female who follows with Dr. Chen in the office. Patient has a known history of hypertension, diabetes, hyperlipidemia, progressive aortic stenosis, who was recently in the hospital because of symptoms of exertional dyspnea, she underwent a KIMMY as well as cardiac catheterization by Dr. Chen. Cardiac catheterization revealed heavily calcified mitral annulus, aortic valve and coronary arteries. Mild to moderate triple-vessel coronary artery disease with no progression as compared with the images obtained in 2013. Moderate to severe aortic stenosis. Subsequently a KIMMY was performed which revealed a mildly dilated left atrium with normal appearance of left atrial appendage, normal left ventricular size and function, moderate to severe aortic stenosis with a peak gradient of 53 and a mean of 33. Severe mitral annulus calcification. Mild mitral tricuspid and aortic and pulmonic regurg. 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 Patient presents to the hospital on this occasion with symptoms of nausea associated dry heaves, significantly worsening shortness of breath and associated palpitations with heart racing. Initial EKG on presentation here shows significant amount of artifact. Subsequent EKG shows atrial fibrillation with a rapid ventricular response. Abdominal x-ray was performed which did not reveal any evidence for small bowel obstruction or free air. No chest x-ray performed. Blood pressure on arrival here 199/122, heart rate in the 90s, 98% on room air. Blood pressure this morning 150/70 with a heart rate of 110, 96% on 2 L of oxygen. White blood cell count 8.5, hemoglobin 12.1, platelet count 167. Potassium 3.8, BUN 48, creatinine 1.0. Troponin 0.048. At the time of my examination, patient is very sleepy and difficult to arouse, she does answer questions appropriately. She was apparently given Ativan as well as Benadryl in the emergency room which is likely contributing to her sleepiness this morning. The patient had been seen in consultation by Dr. Hair, his recommendations for the patient were to be referred for transcatheter valve at [facility] in [place]. 03/03/2017. Patient had multiple episodes of severe nausea yesterday, CT of the abdomen and pelvis revealed evidence of extensive right upper quadrant fat stranding with significant colitis. She is currently nothing by mouth. Blood pressure 132/90 with heart rate in the 70s. She continues to be in atrial fibrillation, continues to be on IV heparin. We will hold off on initiating Coumadin until her GI issue is resolved. Then the patient will be started on Coumadin. 03/04/2017 and examined this morning, complaining of lower back discomfort. Continues to be on clear liquids per Dr. davis. If the patient is stable from a surgical perspective, we will need to initiate Coumadin 03/08/2017 Over the weekend patient was complaining of significant right upper quadrant pain, CT of the abdomen revealed an abdominal wall hematoma for this reason patient's anticoagulation was discontinued. Patient had mild discomfort this morning, also complaining now of some diarrhea stools. Breathing overall is stable, she denies any chest discomfort. Objective - Vital Signs Vital signs: Vital Signs Temp 97.4 F L 03/08/17 10:22 Pulse 120 H 03/08/17 11:50 Resp 16 03/08/17 11:50 BP 135/79 03/08/17 11:50 Pulse Ox 97 03/08/17 11:50 Intake & Output 03/07/17 03/08/17 03/08/17 18:59 06:59 18:59 Intake Total 825 180 Output Total 800 150 Balance 25 30 Weight 78 kg Intake: IV 180 0.9 @20mls/hr 180 Oral 825 Output: Urine 800 150 Other: Voiding Method Diaper Toilet Incontinent Bedpan Diaper # Bowel Movements 1 - Exam PHYSICAL EXAMINATION: HEENT: [Head is atraumatic, normocephalic. Pupils equal, round. Neck is supple. There is elevated jugular venous pressure.] HEART EXAMINATION: Heart S1 and S2 irregularly irregular a systolic ejection murmur is heard. CHEST EXAMINATION: Circumflex clear with diminished air entry to the bases. ABDOMEN: [ Soft, nontender. Bowel sounds are heard. No organomegaly noted]. EXTREMITIES:[ 2+ peripheral pulses with no evidence of peripheral edema and no calf tenderness noted]. NEUROLOGIC [patient is sleepy , alert and oriented -3.] - Labs CBC & Chem 7: 03/08/17 06:06 03/08/17 06:06 Labs: Abnormal Lab Results - Last 24 Hours (Table) 03/08/17 03/08/17 Range/Units 06:06 06:06 RBC 3.14 L (3.80-5.40) m/uL Hgb 10.8 L (11.4-16.0) gm/dL Hct 33.9 L (34.0-46.0) % MCV 108.1 H (80.0-100.0) fL RDW 16.5 H (11.5-15.5) % Plt Count 135 L (150-450) k/uL Chloride 110 H (98-107) mmol/L Carbon Dioxide 21 L (22-30) mmol/L BUN 30 H (7-17) mg/dL Creatinine 1.19 H (0.52-1.04) mg/dL Glucose 121 H (74-99) mg/dL Calcium 8.0 L (8.4-10.2) mg/dL Total Protein 4.8 L (6.3-8.2) g/dL Albumin 2.6 L (3.5-5.0) g/dL Assessment and Plan Plan: Assessment and plan #1 atrial fibrillation with rapid ventricular response, appears to be of new onset. Chronic persistent. #2 moderate to severe aortic stenosis, patient recently had a KIMMY performed last month which revealed moderate to severe aortic stenosis, severe mitral annulus calcification, evidence of patent foramen ovale with [id number] shunting and moderate atherosclerotic changes in the descending thoracic aorta #3 mild to moderate coronary artery disease, cardiac catheterization performed last month revealed a 30-40% lesion in the left main, 20% stenosis of the LAD, 30-40% mid circumflex stenosis, 40-50% stenosis of the right coronary artery with diffuse intimal disease throughout. #4 hypertension #5 hyperlipidemia #6 diabetes #7 peripheral vascular disease #8 family history of premature coronary artery disease #9 history of prior TIA #10 abnormal troponin #11 nausea and vomiting #12 abdominal wall hematoma Plan Cardiology's perspective, patient is no longer a candidate for anticoagulation in therefore anticoagulation has been discontinued. We will continue the patient's other current medications. DNP note has been reviewed, I agree with a documented findings and plan of care. Patient was seen and examined.
[2017-03-08] MEDS: FUROSEMIDE 20 MG TAB PO SCH ×2 (15:38→15:39)
[2017-03-08] MEDS: ASPIRIN 325 MG TAB PO SCH (15:38)
[2017-03-08] MEDS: ALLOPURINOL 100 MG TAB PO SCH (15:38)
[2017-03-08] MEDS: LEVOFLOXACIN 250 MG TAB PO SCH (15:39)
[2017-03-08] MEDS: MONTELUKAST 10 MG TAB PO SCH (15:39)
--- NOTE | 2017-03-08 17:53 | P.PN ---
Subjective Principal diagnosis: Colitis We were asked to see Steffi once again for complaints of right upper quadrant pain. She had a CAT scan performed showing some thickening of the right rectus consistent with a intramuscular bleed. She was on IV heparin. Her pain is improved. Denies bruising. Hemoglobin is stable. No further anticoagulation. No left-sided back pain as before. Tolerating diet. Objective - Vital Signs Vital signs: Vital Signs Temp 98.2 F 03/08/17 15:55 Pulse 90 03/08/17 15:55 Resp 16 03/08/17 15:55 BP 128/85 03/08/17 15:55 Pulse Ox 96 03/08/17 15:55 Intake & Output 03/07/17 03/08/17 03/08/17 18:59 06:59 18:59 Intake Total 825 180 Output Total 800 150 Balance 25 30 Weight 78 kg Intake: IV 180 0.9 @20mls/hr 180 Oral 825 Output: Urine 800 150 Other: Voiding Method Diaper Toilet Incontinent Bedpan Diaper # Voids 1 # Bowel Movements 1 - Exam Abdomen: Soft, nondistended, mild induration and tenderness right upper quadrant - Labs CBC & Chem 7: 03/08/17 06:06 03/08/17 06:06 Labs: Abnormal Lab Results - Last 24 Hours (Table) 03/08/17 03/08/17 Range/Units 06:06 06:06 RBC 3.14 L (3.80-5.40) m/uL Hgb 10.8 L (11.4-16.0) gm/dL Hct 33.9 L (34.0-46.0) % MCV 108.1 H (80.0-100.0) fL RDW 16.5 H (11.5-15.5) % Plt Count 135 L (150-450) k/uL Chloride 110 H (98-107) mmol/L Carbon Dioxide 21 L (22-30) mmol/L BUN 30 H (7-17) mg/dL Creatinine 1.19 H (0.52-1.04) mg/dL Glucose 121 H (74-99) mg/dL Calcium 8.0 L (8.4-10.2) mg/dL Total Protein 4.8 L (6.3-8.2) g/dL Albumin 2.6 L (3.5-5.0) g/dL Assessment and Plan (1) Colitis Narrative/Plan: Rectus sheath hematoma - continue observation. Continue diet as tolerated. Will follow with you. Status: Acute
[2017-03-08] MEDS: ATORVASTATIN 40 MG TAB PO SCH (21:17)
[2017-03-08] MEDS: ZOLPIDEM 5 MG TAB PO SCH (21:20)
[2017-03-08] MEDS: HYDROcodone/APAP 7.5-325MG 1 EACH TAB PO PRN (22:24)
[2017-03-08] MEDS: HYDROmorphone 1 MG/ML 1 ML SYRINGE IVP PRN (23:27)
[2017-03-09] MEDS: metroNIDAZOLE 500 MG TAB PO SCH ×3 (00:12→17:38)
[2017-03-09] MEDS: HYDROmorphone 1 MG/ML 1 ML SYRINGE IVP PRN ×3 (02:38→20:58)
[2017-03-09] MEDS: LEVOTHYROXINE 50 MCG TAB PO SCH (06:49)
[2017-03-09] MEDS: PANTOPRAZOLE 40 MG TABLET PO SCH (06:49)
[2017-03-09 07:27] LABS: INR 1.5 (<1.2); Prothrombin Time 14.3 sec (9.0-12.0)
[2017-03-09 07:31] LABS: Calcium 8.1 mg/dL (8.4-10.2); Potassium 4.4 mmol/L (3.5-5.1); Total Bilirubin 0.4 mg/dL (0.2-1.3); Total Protein 4.8 g/dL (6.3-8.2)
[2017-03-09 08:09] LABS: Anisocytosis Slight; Basophils % (A) 0 %; CHCM 32.1; Eosinophils # (A) 0.1 k/uL (0-0.7); Eosinophils % (A) 2 %; HCT 31.6 % (34.0-46.0); HDW 2.62; HGB 10.5 gm/dL (11.4-16.0); Luc # (Auto) 0.29; Luc % (Auto) 3; Lymphocytes # (A) 1.9 k/uL (1.0-4.8); Lymphocytes % (A) 23 %; MCH 35.4 pg (25.0-35.0); MCHC 33.2 g/dL (31.0-37.0); MCV 106.7 fL (80.0-100.0); Macrocytosis Moderate; Mean Platelet Volume 8.7; Monocytes # (A) 0.6 k/uL (0-1.0); Monocytes % (A) 7 %; Neutrophils # (A) 5.5 k/uL (1.3-7.7); Neutrophils % (A) 65 %; RBC 2.96 m/uL (3.80-5.40); RDW 16.5 % (11.5-15.5); WBC 8.4 k/uL (3.8-10.6); WBC (Perox) 8.48
--- NOTE | 2017-03-09 08:21 | P.PN ---
Subjective Patient complaining of lower back pain and left-sided abdominal pain. The Dilaudid is helping but not lasting long. No further nausea or vomiting. Surgical service has increased diet to soft. Patient denies any chest pain. She is passing gas no bowel movement yet. She feels that she may be able to have a bowel movement soon. Cardiology has started Coumadin for anticoagulation for her A. fib. On 03/06/2017 patient is now complaining of right upper quadrant abdominal pain , that's moderately severe this pain is new for her Otherwise she is denying any complaints at this time On 03/07/2017 patient was seen and evaluated pain in the right upper quadrant remains I have ordered a computed tomography scan of the abdomen yesterday without contrast and this has revealed evidence of abdominal wall hematoma, this was discussed was Dr. Tinoco pipe joints supervisor and Coumadin and heparin were discontinued. Patient denies any new complaints at this time. Objective - Vital Signs Vital signs: Vital Signs Temp 96.9 F L 03/09/17 03:17 Pulse 108 H 03/09/17 03:17 Resp 16 03/09/17 03:17 BP 126/88 03/09/17 03:17 Pulse Ox 100 03/09/17 03:17 Intake & Output 03/08/17 03/09/17 03/09/17 18:59 06:59 18:59 Intake Total 330 Balance 330 Weight 83 kg Intake: IV 180 0.9 @20mls/hr 180 Oral 150 Other: Voiding Method Toilet Toilet Bedpan Bedpan Diaper Diaper # Voids 1 - Exam In general patient is alert and oriented 3 in no apparent distress HEENT head normocephalic and atraumatic Neck is supple no JVD no goiter no lymphadenopathy Chest exam reveals a few scattered crackles no wheezing Cardiac exam reveals regular heart sounds no murmurs Abdomen is soft with moderate tenderness in the right upper quadrant no organomegaly Extremity exam reveals no edema no cyanosis or clubbing - Labs CBC & Chem 7: 03/08/17 06:06 03/09/17 06:07 Labs: Abnormal Lab Results - Last 24 Hours (Table) 03/09/17 03/09/17 Range/Units 06:07 06:07 PT 14.3 H (9.0-12.0) sec INR 1.5 H (<1.2) Chloride 109 H (98-107) mmol/L Carbon Dioxide 21 L (22-30) mmol/L BUN 34 H (7-17) mg/dL Creatinine 1.12 H (0.52-1.04) mg/dL Calcium 8.1 L (8.4-10.2) mg/dL Total Protein 4.8 L (6.3-8.2) g/dL Albumin 2.6 L (3.5-5.0) g/dL Assessment and Plan Plan: 1. Acute colitis, with severe nausea: Probably infectious colitis. Patient is currently nothing by mouth for bowel rest. She was started on antibiotic with IV Flagyl and Levaquin. C. diff is less likely as patient is not having diarrhea. Ischemic bowel disease also this less likely as her lactate is normal and her exam is benign. Continue symptomatic management with IV Zofran and Reglan as needed. Patient evaluated by surgical service. They're not recommending any surgical intervention or endoscopy at this time. Continue antibiotics. Surgical service has advance diet to soft Due to right upper quadrant abdominal pain today Will check abdomen computed tomography scan without contrast, patient had previous history of cholecystectomy. Computed tomography scan of the abdomen revealed evidence of abdominal wall hematoma, anticoagulation were held, will monitor closely. 2. New onset atrial fibrillation with rapid ventricular response, currently heart rate well controlled with metoprolol. On anticoagulation with IV heparin. Awaiting further recommendations from cardiology regarding anticoagulation. Neurology has started patient on Coumadin 5 mg tonight. Check PT/INR in a.m. 3. Moderate to severe aortic stenosis currently being evaluated for possible TAVR at [facility]. Repeat echocardiogram showed moderate to severe aortic stenosis, moderate to severe mitral and tricuspid regurgitation. Moderate pulmonary hypertension. Preserved EF of 50% 4. Underlying coronary artery disease 5. Essential hypertension: Blood pressure not well controlled on presentation. Now better controlled. We will continue to monitor. 6. Hypertensive urgency improved with resuming home medications 7. Generalized anxiety disorder: Restart patient's home dose of Xanax 8. Insomnia Will restarts home dose of Ambien 9. Pain control will add [place] 7.5 one every 6 hours as needed for pain 10. Abdominal wall hematoma, continue to was hold anticoagulation encourage ambulation will get physical therapy and occupational therapy involved
[2017-03-09] MEDS: ALLOPURINOL 100 MG TAB PO SCH (08:42)
[2017-03-09] MEDS: CLOPIDOGREL 75 MG TAB PO SCH (08:42)
[2017-03-09] MEDS: FUROSEMIDE 20 MG TAB PO SCH ×2 (08:42→17:38)
[2017-03-09] MEDS: ASPIRIN 325 MG TAB PO SCH (08:42)
[2017-03-09] MEDS: ISOSORBIDE MONONITRATE ER 60 MG TAB.ER.24H PO SCH (08:43)
[2017-03-09] MEDS: LEVOFLOXACIN 250 MG TAB PO SCH (08:43)
[2017-03-09] MEDS: LOSARTAN 50 MG TAB PO SCH (08:43)
[2017-03-09] MEDS: METOPROLOL SUCCINATE (ER) 50 MG TAB.ER.24H PO SCH (08:43)
[2017-03-09] MEDS: MONTELUKAST 10 MG TAB PO SCH (08:44)
[2017-03-09] MEDS ORDERED: METOPROLOL SUCCINATE (ER) 50 MG TAB.ER.24H PO SCH (10:09)
--- NOTE | 2017-03-09 10:11 | P.PN ---
Subjective Principal diagnosis: Aortic stenosis/A. fib This is a pleasant 82-year-old female patient with a known moderate to severe aortic stenosis as well as chronic atrial fibrillation was admitted to the hospital was abdominal discomfort and there was some concern regarding ischemic colitis. She was seen and evaluated by general surgeon who recommended no surgical intervention at this point beside advancing her diet. She was experiencing right-sided abdominal discomfort yesterday. She underwent a computed tomography scan of the abdomen which showed abdominal wall hematoma. In review of that, I stopped Coumadin and also I stopped the heparin on her. I'll follow-up with her today, she is feeling slightly better. She denies having any chest pain or discomfort. Hemodynamically she is slightly tachycardic. I'm going to increase the dose of Toprol-XL 200 mg by mouth daily. Possibly the patient can be discharged home today. Objective - Vital Signs Vital signs: Vital Signs Temp 97.1 F L 03/09/17 08:40 Pulse 101 H 03/09/17 08:40 Resp 16 03/09/17 08:40 BP 143/79 03/09/17 08:40 Pulse Ox 97 03/09/17 08:40 Intake & Output 03/08/17 03/09/17 03/09/17 18:59 06:59 18:59 Intake Total 330 Balance 330 Weight 83 kg Intake: IV 180 0.9 @20mls/hr 180 Oral 150 Other: Voiding Method Toilet Toilet Bedpan Bedpan Diaper Diaper # Voids 1 - Constitutional General appearance: Present: no acute distress - Respiratory Respiratory: bilateral: CTA - Cardiovascular Rhythm: irregularly irregular Heart sounds: normal: S1, S2 - Labs CBC & Chem 7: 03/09/17 06:07 03/09/17 06:07 Labs: Abnormal Lab Results - Last 24 Hours (Table) 03/09/17 03/09/17 03/09/17 Range/Units 06:07 06:07 06:07 RBC 2.96 L (3.80-5.40) m/uL Hgb 10.5 L (11.4-16.0) gm/dL Hct 31.6 L (34.0-46.0) % MCV 106.7 H (80.0-100.0) fL MCH 35.4 H (25.0-35.0) pg RDW 16.5 H (11.5-15.5) % Plt Count 135 L (150-450) k/uL PT 14.3 H (9.0-12.0) sec INR 1.5 H (<1.2) Chloride 109 H (98-107) mmol/L Carbon Dioxide 21 L (22-30) mmol/L BUN 34 H (7-17) mg/dL Creatinine 1.12 H (0.52-1.04) mg/dL Calcium 8.1 L (8.4-10.2) mg/dL Total Protein 4.8 L (6.3-8.2) g/dL Albumin 2.6 L (3.5-5.0) g/dL Assessment and Plan Plan: This is a pleasant 82-year-old female patient was noted to have moderate to severe aortic stenosis was admitted to the hospital with nausea, abdominal pain. She is in A. fib with slightly uncontrolled heart rates. The patient developed abdominal wall hematoma. Heparin and Coumadin are on hold at this point. From the cardiac standpoint the patient can be discharged home.
[2017-03-09 10:25] VITALS: BMI 32.4
[2017-03-09] MEDS ORDERED: METOPROLOL SUCCINATE (ER) 25 MG TAB.ER.24H PO STA (10:28)
[2017-03-09 10:43] LABS: Manual Review Performed
[2017-03-09 10:44] LABS: Polychromasia Present
--- NOTE | 2017-03-09 11:53 | P.PN ---
Subjective Principal diagnosis: Colitis Patient doing well today. Denies abdominal pain. There is discussion about possible discharge today. White blood cell count 8.4 hemoglobin 10.5. Objective - Vital Signs Vital signs: Vital Signs Temp 97.1 F L 03/09/17 08:40 Pulse 101 H 03/09/17 08:40 Resp 16 03/09/17 08:40 BP 143/79 03/09/17 08:40 Pulse Ox 97 03/09/17 08:40 Intake & Output 03/08/17 03/09/17 03/09/17 18:59 06:59 18:59 Intake Total 330 Balance 330 Weight 83 kg 83 kg Intake: IV 180 0.9 @20mls/hr 180 Oral 150 Other: Voiding Method Toilet Toilet Toilet Bedpan Bedpan Bedpan Diaper Diaper Diaper # Voids 1 - Exam Abdomen: Soft, nondistended, minimal right upper quadrant tenderness, no ecchymosis - Labs CBC & Chem 7: 03/09/17 06:07 03/09/17 06:07 Labs: Abnormal Lab Results - Last 24 Hours (Table) 03/09/17 03/09/17 03/09/17 Range/Units 06:07 06:07 06:07 RBC 2.96 L (3.80-5.40) m/uL Hgb 10.5 L (11.4-16.0) gm/dL Hct 31.6 L (34.0-46.0) % MCV 106.7 H (80.0-100.0) fL MCH 35.4 H (25.0-35.0) pg RDW 16.5 H (11.5-15.5) % Plt Count 135 L (150-450) k/uL PT 14.3 H (9.0-12.0) sec INR 1.5 H (<1.2) Chloride 109 H (98-107) mmol/L Carbon Dioxide 21 L (22-30) mmol/L BUN 34 H (7-17) mg/dL Creatinine 1.12 H (0.52-1.04) mg/dL Calcium 8.1 L (8.4-10.2) mg/dL Total Protein 4.8 L (6.3-8.2) g/dL Albumin 2.6 L (3.5-5.0) g/dL Assessment and Plan (1) Colitis Narrative/Plan: Continue diet as tolerated. Stable for discharge from my standpoint. We'll sign off at this point. Status: Acute
[2017-03-09] MEDS: ATORVASTATIN 40 MG TAB PO SCH (20:56)
[2017-03-09] MEDS: ZOLPIDEM 5 MG TAB PO SCH (23:46)
[2017-03-10] MEDS: LEVOTHYROXINE 50 MCG TAB PO SCH (06:13)
[2017-03-10] MEDS: metroNIDAZOLE 500 MG TAB PO SCH ×3 (06:13→16:01)
[2017-03-10] MEDS: HYDROmorphone 1 MG/ML 1 ML SYRINGE IVP PRN ×3 (06:13→19:59)
[2017-03-10 07:38] VITALS: RESP 16
[2017-03-10] MEDS: CLOPIDOGREL 75 MG TAB PO SCH (07:45)
[2017-03-10] MEDS: FUROSEMIDE 20 MG TAB PO SCH ×2 (07:45→16:01)
[2017-03-10] MEDS: METOPROLOL SUCCINATE (ER) 100 MG TAB.ER.24H PO SCH (07:46)
[2017-03-10] MEDS: ASPIRIN 325 MG TAB PO SCH (07:46)
[2017-03-10] MEDS: LEVOFLOXACIN 250 MG TAB PO SCH (07:46)
[2017-03-10] MEDS: ISOSORBIDE MONONITRATE ER 60 MG TAB.ER.24H PO SCH (07:46)
[2017-03-10] MEDS: PANTOPRAZOLE 40 MG TABLET PO SCH (07:46)
[2017-03-10] MEDS: ALLOPURINOL 300 MG TAB PO SCH (07:47)
[2017-03-10] MEDS: LOSARTAN 50 MG TAB PO SCH (07:47)
[2017-03-10] MEDS: MONTELUKAST 10 MG TAB PO SCH (07:47)
[2017-03-10 08:24] LABS: Calcium 8.2 mg/dL (8.4-10.2); Potassium 4.2 mmol/L (3.5-5.1); Total Bilirubin 0.4 mg/dL (0.2-1.3); Total Protein 4.9 g/dL (6.3-8.2)
[2017-03-10 08:31] LABS: INR 1.4 (<1.2); Prothrombin Time 13.8 sec (9.0-12.0)
[2017-03-10 08:42] LABS: Anisocytosis Slight; Basophils % (A) 0 %; CHCM 32.4; Eosinophils # (A) 0.2 k/uL (0-0.7); Eosinophils % (A) 2 %; HCT 33.7 % (34.0-46.0); HDW 2.66; Luc # (Auto) 0.24; Luc % (Auto) 3; Lymphocytes # (A) 1.4 k/uL (1.0-4.8); Lymphocytes % (A) 17 %; MCH 34.4 pg (25.0-35.0); MCHC 32.6 g/dL (31.0-37.0); MCV 105.7 fL (80.0-100.0); Macrocytosis Moderate; Mean Platelet Volume 9.1; Monocytes # (A) 0.6 k/uL (0-1.0); Monocytes % (A) 7 %; Neutrophils # (A) 5.7 k/uL (1.3-7.7); Neutrophils % (A) 70 %; RBC 3.18 m/uL (3.80-5.40); RDW 16.3 % (11.5-15.5); WBC 8.1 k/uL (3.8-10.6); WBC (Perox) 8.46
--- NOTE | 2017-03-10 16:01 | P.CONS ---
History of Present Illness - Chief Complaint Medical debility - History of Present Illness I had the opportunity to see patient for inpatient rehab consultation with regard to medical debility. She was admitted to [facility] March 02 with nausea, shortness of breath, palpitations. Seen by cardiology who notes A. fib with rapid ventricular response which is new, severe aortic stenosis and coronary vessel disease. Seen by Dr. davis for left flank pain related to colitis. CT of abdomen and pelvis demonstrated mitral calcification, anasarca, right liver lobe lesions 1.7 cm, atrophic pancreas. Chest x-ray demonstrates cardiomegaly and postoperative change. PT reports minimal assistance for transfers and gait 10 feet with roller walker. OT reports modified independent with upper dressing and minimal assistance for lower dressing, bathing, toileting, transfers. Previous functional history as elicited from patient: 82-year-old right-handed white female who is lives in a first-floor home with . Retired. History smoking doesn't smoke currently. Denies alcohol. Note that they eat meals that are provided. Patient independent laundry, dressing, gait with 4 wheeled walker. There is aide to comes in and supervises the bath. Dr. heard jar his regular doctor. Family history of cardiac disease in both parents as well as 3 kids Review of Systems Review of systems: ENT: Denies sneezes or discharge. Eyes: Denies discharge or photophobia. Cardiac: Denies chest pain or palpitation. Pulmonary: Mild or resolved shortness of breath. Breast: Denies discharge or lumps. Gastrointestinal: Denies nausea, emesis, constipation, diarrhea. Genitourinary: Denies discharge or frequency. Musculoskeletal: Denies muscle or bone aches. Neurologic: At least mild generalized weakness. Endocrine: Denies shakes or sweats. Oncology: Denies cancers. Dermatologic: Denies rash, itching, pruritus. ALLERGY/immunology: Denies sneezes, rashes. 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, HYPOGLYCEMIC, frequent urination, "leaky valve", diff swallowing, HX UTERINE CA, skin ca rt holiness/corner rt eye, MACULAR DEGENERATION , hypothyroid History of Any Multi-Drug Resistant Organisms: None Reported Past Surgical History: Adenoidectomy, Appendectomy, Cholecystectomy, Heart Catheterization, Hysterectomy, Joint Replacement, Tonsillectomy Additional Past Surgical History / Comment(s): DMITRIY knee replacements, lt shoulder replacement,hemorroidectomy, basal cell skin ca removed, COLONOSCOPY, tummy tuck, D&C, LIPOMAS REMOVED FROM BILAT LEGS AND LT ARM, KIMMY, salpingectomy , hx c-diff 09/2014 Past Anesthesia/Blood Transfusion Reactions: No Reported Reaction Past Psychological History: No Psychological Hx Reported Smoking Status: Former smoker Past Alcohol Use History: None Reported Past Drug Use History: None Reported - Past Family History Mother Family Medical History: Cancer Additional Family Medical History / Comment(s): lt bbb Father Family Medical History: Myocardial Infarction (MD) Additional Family Medical History / Comment(s): Father had a MD at the age of 86yrs. He had CABG. Son(s) Family Medical History: Myocardial Infarction (MD) Additional Family Medical History / Comment(s): 2 sons from mi's Daughter(s) Family Medical History: Myocardial Infarction (MD) Additional Family Medical History / Comment(s): daughter had mi while doing cpr on her brother- Medications and Allergies Home Medications Medication Instructions Recorded Confirmed Type ALPRAZolam [Xanax] 0.25 mg PO TID PRN 09/20/14 03/02/17 History Ergocalciferol [Vitamin D2 50,000 unit PO Q7DAYS 09/20/14 03/02/17 History (DRISDOL)] Furosemide [Lasix] 20 mg PO BID 09/20/14 03/02/17 History Levothyroxine Sodium [Synthroid] 50 mcg PO DAILY 09/20/14 03/02/17 History Montelukast [Singulair] 10 mg PO DAILY 09/20/14 03/02/17 History Zolpidem Tartrate 5 mg PO HS 09/20/14 03/02/17 History Atorvastatin [Lipitor] 40 mg PO HS 01/28/16 03/02/17 History Isosorbide Mononitrate ER [Imdur] 60 mg PO DAILY 01/28/16 03/02/17 History Albuterol Sulfate [Proair Hfa] 2 puff INHALATION RT-BID PRN 02/12/16 03/02/17 History Hydrocodone/Acetaminophen [[place] 1 tab PO Q6HR PRN 02/12/16 03/02/17 History 7.5-325] Metoprolol Succinate [Toprol XL] 25 mg PO DAILY 02/12/16 03/02/17 History Allopurinol [Zyloprim] 300 mg PO DAILY 06/16/16 03/02/17 History Clopidogrel Bisulfate [Plavix] 75 mg PO DAILY 03/02/17 03/02/17 History Diphenoxylate HCl/Atropine 1 tab PO BID 03/02/17 03/02/17 History [Lomotil 2.5-0.025 mg Tablet] Estrogens, Conjugated [Premarin] 0.625 mg PO DAILY 03/02/17 03/02/17 History Imodium A-D 1mg/7.5ml 1 gm PO DAILY PRN 03/02/17 03/02/17 History Losartan Potassium [Cozaar] 100 mg PO DAILY 03/02/17 03/02/17 History Nitroglycerin Sl Tabs [Nitrostat] 0.4 mg SUBLINGUAL Q5M PRN 03/02/17 03/02/17 History Allergies Allergy/AdvReac Type Severity Reaction Status Date / Time adhesive Allergy tears skin Verified 03/02/17 05:30 off mirtazapine [From Remeron] Allergy Unknown Verified 03/02/17 05:30 Penicillins Allergy Rash/Hives Verified 03/02/17 05:30 Physical Exam Vitals: Vital Signs Temp Pulse Pulse Resp BP Pulse Ox 03/10/17 15:00 97.6 F 80 16 152/81 98 03/10/17 07:00 97.7 F 113 H 16 132/69 96 03/10/17 00:00 20 03/09/17 22:59 97.6 F 86 20 113/82 99 03/09/17 17:35 115 H 16 108/76 93 L Intake and Output 03/10/17 03/10/17 03/10/17 06:59 14:59 22:59 Intake Total 840 Balance 840 Intake: IV 240 0.9 @20mls/hr 240 Oral 600 Other: Voiding Method Toilet Bedpan Diaper # Voids 3 Skin: Atrophic, intact. General: Overweight and comfortable appearance. Head: Normocephalic, atraumatic. Eyes: Symmetric. Pupils equal round. Ears: Symmetric. Hearing within normal limits. Mouth: Clear. Neck: Supple. Carotid without bruit. Cardiac: Regular rate and rhythm. Lungs: Clear anteriorly and posteriorly. Abdomen: Soft active nontender. Extremities: Normal tone. At least mild limitation throughout with moderate and right shoulder Neurological: Mental status: Alert, cooperative, pleasant. Cranial nerves: Symmetric facial tone and trapezius. Motor: Poor elevation of arms and legs off bed. Sensation: Intact throughout. DTRs: Symmetric and equal throughout. Mobility: Sits and stands with minimal assistance. Results CBC & Chem 7: 03/10/17 07:42 03/10/17 07:42 Labs: Abnormal Lab Results - Last 24 Hours (Table) 03/10/17 03/10/17 03/10/17 Range/Units 07:42 07:42 07:42 RBC 3.18 L (3.80-5.40) m/uL Hgb 11.0 L (11.4-16.0) gm/dL Hct 33.7 L (34.0-46.0) % MCV 105.7 H (80.0-100.0) fL RDW 16.3 H (11.5-15.5) % Plt Count 125 L (150-450) k/uL PT 13.8 H (9.0-12.0) sec INR 1.4 H (<1.2) BUN 38 H (7-17) mg/dL Creatinine 1.16 H (0.52-1.04) mg/dL Glucose 108 H (74-99) mg/dL Calcium 8.2 L (8.4-10.2) mg/dL Total Protein 4.9 L (6.3-8.2) g/dL Albumin 2.7 L (3.5-5.0) g/dL Chest x-ray: report reviewed (Cardiomegaly and postoperative change.) CT scan - abdomen: report reviewed (Abdomen and pelvis with mitral calcification , anasarca, right liver lobe lesion 1.7 cm, atrophic pancreas.) Assessment and Plan (1) NSTEMI (non-ST elevated myocardial infarction) Status: Acute Plan: Impression: 1. Medical debility. 2. Non-STEMI. 3. Flank pain related colitis. 4. History of adverse right shoulder arthroplasty. 5. Asthma. 6. Hypertension. 7. Dyslipidemia. 8. Osseous arthritis. 9. Thyroid disorder. Comments and plan: At this time PT and OT are ongoing. Safety concerns noted. Appears to be tolerating and benefiting from therapies and would consider for inpatient rehab.
--- NOTE | 2017-03-10 17:47 | P.PN ---
Subjective Patient complaining of lower back pain and left-sided abdominal pain. The Dilaudid is helping but not lasting long. No further nausea or vomiting. Surgical service has increased diet to soft. Patient denies any chest pain. She is passing gas no bowel movement yet. She feels that she may be able to have a bowel movement soon. Cardiology has started Coumadin for anticoagulation for her A. fib. On 03/06/2017 patient is now complaining of right upper quadrant abdominal pain , that's moderately severe this pain is new for her Otherwise she is denying any complaints at this time On 03/07/2017 patient was seen and evaluated pain in the right upper quadrant remains I have ordered a computed tomography scan of the abdomen yesterday without contrast and this has revealed evidence of abdominal wall hematoma, this was discussed was Dr. Tinoco taxi truck driver and Coumadin and heparin were discontinued. Patient denies any new complaints at this time. On 03/10/2017 patient is alert but somnolent responsive to questions in no apparent distress her pain has improved significantly she is still having difficulty transferring from bed to standing and to sitting on commode, continue was physical therapy and occupational therapy consult Dr. Tafoya for possible rehab admission Objective - Vital Signs Vital signs: Vital Signs Temp 97.6 F 03/10/17 15:00 Pulse 80 03/10/17 15:00 Resp 16 03/10/17 15:00 BP 152/81 03/10/17 15:00 Pulse Ox 98 03/10/17 15:00 Intake & Output 03/09/17 03/10/17 03/10/17 18:59 06:59 18:59 Intake Total 840 Balance 840 Weight 83 kg Intake: IV 240 0.9 @20mls/hr 240 Oral 600 Other: Voiding Method Toilet Toilet Bedpan Bedpan Diaper Diaper # Voids 4 3 # Bowel Movements 1 - Exam In general patient is alert and oriented 3 in no apparent distress HEENT head normocephalic and atraumatic Neck is supple no JVD no goiter no lymphadenopathy Chest exam reveals a few scattered crackles no wheezing Cardiac exam reveals regular heart sounds no murmurs Abdomen is soft with moderate tenderness in the right upper quadrant no organomegaly Extremity exam reveals no edema no cyanosis or clubbing - Labs CBC & Chem 7: 03/10/17 07:42 03/10/17 07:42 Labs: Abnormal Lab Results - Last 24 Hours (Table) 03/10/17 03/10/17 03/10/17 Range/Units 07:42 07:42 07:42 RBC 3.18 L (3.80-5.40) m/uL Hgb 11.0 L (11.4-16.0) gm/dL Hct 33.7 L (34.0-46.0) % MCV 105.7 H (80.0-100.0) fL RDW 16.3 H (11.5-15.5) % Plt Count 125 L (150-450) k/uL PT 13.8 H (9.0-12.0) sec INR 1.4 H (<1.2) BUN 38 H (7-17) mg/dL Creatinine 1.16 H (0.52-1.04) mg/dL Glucose 108 H (74-99) mg/dL Calcium 8.2 L (8.4-10.2) mg/dL Total Protein 4.9 L (6.3-8.2) g/dL Albumin 2.7 L (3.5-5.0) g/dL Assessment and Plan Plan: 1. Acute colitis, with severe nausea: Probably infectious colitis. Patient is currently nothing by mouth for bowel rest. She was started on antibiotic with IV Flagyl and Levaquin. C. diff is less likely as patient is not having diarrhea. Ischemic bowel disease also this less likely as her lactate is normal and her exam is benign. Continue symptomatic management with IV Zofran and Reglan as needed. Patient evaluated by surgical service. They're not recommending any surgical intervention or endoscopy at this time. Continue antibiotics. Surgical service has advance diet to soft Due to right upper quadrant abdominal pain today Will check abdomen computed tomography scan without contrast, patient had previous history of cholecystectomy. Computed tomography scan of the abdomen revealed evidence of abdominal wall hematoma, anticoagulation were held, will monitor closely. 2. New onset atrial fibrillation with rapid ventricular response, currently heart rate well controlled with metoprolol. On anticoagulation with IV heparin. Awaiting further recommendations from cardiology regarding anticoagulation. Neurology has started patient on Coumadin 5 mg tonight. Check PT/INR in a.m. 3. Moderate to severe aortic stenosis currently being evaluated for possible TAVR at [facility]. Repeat echocardiogram showed moderate to severe aortic stenosis, moderate to severe mitral and tricuspid regurgitation. Moderate pulmonary hypertension. Preserved EF of 50% 4. Underlying coronary artery disease 5. Essential hypertension: Blood pressure not well controlled on presentation. Now better controlled. We will continue to monitor. 6. Hypertensive urgency improved with resuming home medications 7. Generalized anxiety disorder: Restart patient's home dose of Xanax 8. Insomnia Will restarts home dose of Ambien 9. Pain control will add [place] 7.5 one every 6 hours as needed for pain, at this time pain has improved and patient is somnolent will discontinue pain medications. 10. Abdominal wall hematoma, continue to was hold anticoagulation encourage ambulation will get physical therapy and occupational therapy involved 11. Physical debility continue was physical therapy and occupational therapy consultation for Dr. Kern was initiated for possible rehab admission
[2017-03-10] MEDS: ATORVASTATIN 40 MG TAB PO SCH (20:01)
[2017-03-10] MEDS: ZOLPIDEM 5 MG TAB PO SCH (21:57)
[2017-03-11] MEDS: metroNIDAZOLE 500 MG TAB PO SCH ×2 (00:55→09:49)
[2017-03-11] MEDS: LEVOTHYROXINE 50 MCG TAB PO SCH (06:07)
[2017-03-11] MEDS: HYDROmorphone 1 MG/ML 1 ML SYRINGE IVP PRN ×2 (06:07→09:44)
[2017-03-11 07:34] VITALS: BP 122/72
[2017-03-11 07:56] LABS: INR 1.6 (<1.2); Potassium 4.1 mmol/L (3.5-5.1); Prothrombin Time 15.4 sec (9.0-12.0); Total Bilirubin 0.7 mg/dL (0.2-1.3); Total Protein 4.8 g/dL (6.3-8.2)
[2017-03-11 08:10] LABS: Anisocytosis Slight; Basophils % (A) 0 %; CH 33.9; CHCM 32.2; Eosinophils # (A) 0.2 k/uL (0-0.7); Eosinophils % (A) 2 %; HCT 34.5 % (34.0-46.0); HDW 2.65; HGB 11.4 gm/dL (11.4-16.0); Luc # (Auto) 0.25; Luc % (Auto) 3; Lymphocytes # (A) 1.8 k/uL (1.0-4.8); Lymphocytes % (A) 21 %; MCH 35.1 pg (25.0-35.0); MCHC 33.1 g/dL (31.0-37.0); Macrocytosis Moderate; Mean Platelet Volume 8.5; Monocytes # (A) 0.7 k/uL (0-1.0); Monocytes % (A) 8 %; Neutrophils # (A) 5.7 k/uL (1.3-7.7); Neutrophils % (A) 65 %; RBC 3.25 m/uL (3.80-5.40); RDW 16.6 % (11.5-15.5); WBC 8.7 k/uL (3.8-10.6); WBC (Perox) 8.86
[2017-03-11] MEDS: FUROSEMIDE 20 MG TAB PO SCH (09:49)
[2017-03-11] MEDS: LOSARTAN 50 MG TAB PO SCH (09:49)
[2017-03-11] MEDS: ISOSORBIDE MONONITRATE ER 60 MG TAB.ER.24H PO SCH (09:49)
[2017-03-11] MEDS: METOPROLOL SUCCINATE (ER) 100 MG TAB.ER.24H PO SCH (09:49)
[2017-03-11] MEDS: MONTELUKAST 10 MG TAB PO SCH (09:49)
[2017-03-11] MEDS: ALLOPURINOL 300 MG TAB PO SCH (09:49)
[2017-03-11] MEDS: ASPIRIN 325 MG TAB PO SCH (09:49)
[2017-03-11] MEDS: PANTOPRAZOLE 40 MG TABLET PO SCH (09:49)
[2017-03-11] MEDS: LEVOFLOXACIN 250 MG TAB PO SCH (09:49)
[2017-03-11] MEDS: CLOPIDOGREL 75 MG TAB PO SCH (09:49)
[2017-03-11] MEDS ORDERED: HYDROcodone/APAP 7.5-325MG 1 EACH TAB PO PRN (10:25)
[2017-03-11] MEDS ORDERED: PHYTONADIONE ORAL 5 MG/5 ML ORAL.SYRG PO STA (11:07)
[2017-03-11 14:54] VITALS: TEMP 97.4
--- NOTE | 2017-03-11 15:25 | P.DS ---
Providers Date of admission: 03/02/17 06:50 Expected date of discharge: 03/11/17 Attending physician: Perfecto Gonzalez Consults: 03/02/17 06:50 Consult Physician Urgent Consulting Provider: Jey Chen Consult Reason/Comments: elevTrop Do you want consulting provider notified?: Yes 03/03/17 07:42 Consult Physician Stat Consulting Provider: Richard Stevens Consult Reason/Comments: critical CT abdomen/pelvis results Do you want consulting provider notified?: Yes 03/06/17 11:42 Consult Physician Routine Consulting Provider: Richard Stevens Consult Reason/Comments: new right upper gastric pain Do you want consulting provider notified?: Yes 03/08/17 17:33 Consult Physician Routine Consulting Provider: Richard Stevens Consult Reason/Comments: CT abdomen results/abdominal pain Do you want consulting provider notified?: Yes 03/10/17 13:44 Consult Physician Routine Consulting Provider: Conner Tafoya Consult Reason/Comments: possible rehab, physical debility Do you want consulting provider notified?: Yes Primary care physician: [facility] Course: Discharge diagnosis 1. Acute colitis, with severe nausea: Probably infectious colitis. Patient is currently nothing by mouth for bowel rest. She was started on antibiotic with IV Flagyl and Levaquin. C. diff is less likely as patient is not having diarrhea. Ischemic bowel disease also this less likely as her lactate is normal and her exam is benign. Continue symptomatic management with IV Zofran and Reglan as needed. Patient evaluated by surgical service. They're not recommending any surgical intervention or endoscopy at this time. Continue antibiotics. Surgical service has advance diet to soft Due to right upper quadrant abdominal pain today Will check abdomen computed tomography scan without contrast, patient had previous history of cholecystectomy. Computed tomography scan of the abdomen revealed evidence of abdominal wall hematoma, anticoagulation were held, will monitor closely. 2. New onset atrial fibrillation with rapid ventricular response, currently heart rate well controlled with metoprolol. 3. Moderate to severe aortic stenosis currently being evaluated for possible TAVR at [facility]. Repeat echocardiogram showed moderate to severe aortic stenosis, moderate to severe mitral and tricuspid regurgitation. Moderate pulmonary hypertension. Preserved EF of 50% 4. Underlying coronary artery disease 5. Essential hypertension: Blood pressure not well controlled on presentation. Now better controlled. We will continue to monitor. 6. Hypertensive urgency improved with resuming home medications 7. Generalized anxiety disorder: Restart patient's home dose of Xanax 8. Insomnia Will restarts home dose of Ambien 9. Pain control will add [place] 7.5 one every 6 hours as needed for pain, at this time pain has improved and patient is somnolent will discontinue pain medications. 10. Abdominal wall hematoma, continue to was hold anticoagulation encourage ambulation will get physical therapy and occupational therapy involved 11. Physical debility continue was physical therapy and occupational therapy consultation for Dr. Kern was initiated for possible rehab admission Hospital course This is a 82-year-old female with a very complex past medical history noted below significant for coronary artery disease and moderate to severe aortic stenosis of presented to the hospital with worsening nausea, vomiting and shortness of breath. Patient is very lethargic this morning and is unable to provide any meaningful medical history. Apparently she was given Benadryl and Ativan in the emergency room and currently she is very lethargic. Most of the medical history was obtained by chart review and nursing staff report. Apparently, patient was having worsening shortness of breath over the past few days. She was recently seen at [facility] and being evaluated for possible TAVR. Yesterday she was having a lot of nausea and vomited and then decided to come to the emergency room for further evaluation. In the emergency room, 12-lead EKG showed new onset atrial fibrillation with rapid ventricular response. Patient was admitted to telemetry floor. She remained hemodynamically stable. Cardizem drip was ordered but was never started as heart rate improved significantly after patient receives her home dose of metoprolol. She was seen and evaluated by cardiology. Patient did have a computed tomography scan of the abdomen and pelvis that did show evidence of colitis. Surgical consult was placed. No surgical intervention was required. Symptoms did resolve. And patient diet was advanced. Surgical service has cleared her for discharge. Patient was still having some abdominal discomfort especially in the right upper quadrant a repeat computed tomography scan was done and revealed evidence of an abdominal wall hematoma. At that time the IV heparin and Coumadin were discontinued. Case was discussed with Dr. Tinoco today and he is recommending no anticoagulation or Plavix at this time. And decrease the aspirin to 81 mg daily. Patient did receive a dose of vitamin K today for an INR of 1.6. [facility] Patient is medically stable for discharge. Please refer to chart for any further details. Patient has been cleared by both cardiology and surgical service. Also note the patient will continue 5 more days of the Levaquin and Flagyl to complete treatment for her colitis which is likely an infectious colitis. I performed an examination of the patient and discussed their management with the physician Refractory Tile Helper. I have reviewed the Physician Refractory Tile Helper's notes and agree with the documented findings and plan of care Patient Condition at Discharge: Stable Plan - Discharge Summary New Discharge Prescriptions: New Aspirin 81 mg PO DAILY Levofloxacin [Levaquin] 250 mg PO DAILY #5 tab Metoprolol Succinate (ER) [Toprol XL] 100 mg PO DAILY tab metroNIDAZOLE [Flagyl] 500 mg PO Q8HR #15 tab Polyethylene Glycol 3350 [Miralax] 17 gm PO DAILY PRN pack PRN Reason: Constipation Continue ALPRAZolam [Xanax] 0.25 mg PO TID PRN PRN Reason: Anxiety Furosemide [Lasix] 20 mg PO BID Montelukast [Singulair] 10 mg PO DAILY Levothyroxine Sodium [Synthroid] 50 mcg PO DAILY Ergocalciferol [Vitamin D2 (DRISDOL)] 50,000 unit PO Q7DAYS Zolpidem Tartrate 5 mg PO HS Isosorbide Mononitrate ER [Imdur] 60 mg PO DAILY Atorvastatin [Lipitor] 40 mg PO HS Hydrocodone/Acetaminophen [[place] 7.5-325] 1 tab PO Q6HR PRN PRN Reason: Pain Albuterol Sulfate [Proair Hfa] 2 puff INHALATION RT-BID PRN PRN Reason: Shortness Of Breath Allopurinol [Zyloprim] 300 mg PO DAILY Nitroglycerin Sl Tabs [Nitrostat] 0.4 mg SUBLINGUAL Q5M PRN PRN Reason: Chest Pain Losartan Potassium [Cozaar] 100 mg PO DAILY Imodium A-D 1mg/7.5ml 1 gm PO DAILY PRN PRN Reason: Diarrhea Estrogens, Conjugated [Premarin] 0.625 mg PO DAILY Changed Diphenoxylate HCl/Atropine [Lomotil 2.5-0.025 mg Tablet] 1 tab PO BID PRN #0 PRN Reason: Diarrhea Discontinued Metoprolol Succinate [Toprol XL] 25 mg PO DAILY Clopidogrel Bisulfate [Plavix] 75 mg PO DAILY Discharge Medication List ALPRAZolam [Xanax] 0.25 mg PO TID PRN 09/20/14 [History] Ergocalciferol [Vitamin D2 (DRISDOL)] 50,000 unit PO Q7DAYS 09/20/14 [History] Furosemide [Lasix] 20 mg PO BID 09/20/14 [History] Levothyroxine Sodium [Synthroid] 50 mcg PO DAILY 09/20/14 [History] Montelukast [Singulair] 10 mg PO DAILY 09/20/14 [History] Zolpidem Tartrate 5 mg PO HS 09/20/14 [History] Atorvastatin [Lipitor] 40 mg PO HS 01/28/16 [History] Isosorbide Mononitrate ER [Imdur] 60 mg PO DAILY 01/28/16 [History] Albuterol Sulfate [Proair Hfa] 2 puff INHALATION RT-BID PRN 02/12/16 [History] Hydrocodone/Acetaminophen [[place] 7.5-325] 1 tab PO Q6HR PRN 02/12/16 [History] Allopurinol [Zyloprim] 300 mg PO DAILY 06/16/16 [History] Estrogens, Conjugated [Premarin] 0.625 mg PO DAILY 03/02/17 [History] Imodium A-D 1mg/7.5ml 1 gm PO DAILY PRN 03/02/17 [History] Losartan Potassium [Cozaar] 100 mg PO DAILY 03/02/17 [History] Nitroglycerin Sl Tabs [Nitrostat] 0.4 mg SUBLINGUAL Q5M PRN 03/02/17 [History] Aspirin 81 mg PO DAILY 03/11/17 [Rx] Diphenoxylate HCl/Atropine [Lomotil 2.5-0.025 mg Tablet] 1 tab PO BID PRN #0 [Rx] Levofloxacin [Levaquin] 250 mg PO DAILY #5 tab 03/11/17 [Rx] Metoprolol Succinate (ER) [Toprol XL] 100 mg PO DAILY tab 03/11/17 [Rx] Polyethylene Glycol 3350 [Miralax] 17 gm PO DAILY PRN pack 03/11/17 [Rx] metroNIDAZOLE [Flagyl] 500 mg PO Q8HR #15 tab 03/11/17 [Rx] Follow up Appointment(s)/Referral(s): Perfecto Gonzalez MD [Primary Care Provider] - 1 Week Sebas Johnson MD [STAFF PHYSICIAN] - 1 Week Activity/Diet/Wound Care/Special Instructions: Diet: cardiac Activity: as tolerated Okay to transfer to [facility] rehabilitation Discharge Disposition: OTHER INSTITUTION NOT DEFINED
[2017-03-11 16:22] VITALS: PULSE 86
[2017-03-12] MEDS ORDERED: ASPIRIN 81 MG CHEW PO SCH (09:00)
== END 2017-03-11 16:10 | DRG 392 ==
LOC: EC 04:43 → 6SEL 06:50 → 5MS5E 03-09 18:12
PROVIDERS: ADMIT Internal Medicine; ATTEND Internal Medicine
DX: A09 Infectious gastroenteritis and colitis, unspecified (principal); I48.1 Persistent atrial fibrillation; E11.22 Type 2 diabetes mellitus with diabetic chronic kidney disease; E11.42 Type 2 diabetes mellitus with diabetic polyneuropathy; E11.51 Type 2 diabetes mellitus with diabetic peripheral angiopathy without gangrene; I27.2 Other secondary pulmonary hypertension; I48.2 Chronic atrial fibrillation; E86.0 Dehydration; I12.9 Hypertensive chronic kidney disease with stage 1 through stage 4 chronic kidney disease, or unspecified chronic kidney disease; Q21.1 Atrial septal defect; E87.70 Fluid overload, unspecified; I70.0 Atherosclerosis of aorta; I34.0 Nonrheumatic mitral (valve) insufficiency; I36.1 Nonrheumatic tricuspid (valve) insufficiency; S30.1XXA Contusion of abdominal wall, initial encounter; I16.0 Hypertensive urgency; J45.909 Unspecified asthma, uncomplicated; N18.3 Chronic kidney disease, stage 3 (moderate); R74.8 Abnormal levels of other serum enzymes; I35.0 Nonrheumatic aortic (valve) stenosis; I25.10 Atherosclerotic heart disease of native coronary artery without angina pectoris; I37.1 Nonrheumatic pulmonary valve insufficiency; G47.00 Insomnia, unspecified; F41.1 Generalized anxiety disorder; E78.5 Hyperlipidemia, unspecified; E03.9 Hypothyroidism, unspecified; R63.3 Feeding difficulties; R53.1 Weakness; M19.90 Unspecified osteoarthritis, unspecified site; H35.30 Unspecified macular degeneration; E66.3 Overweight; R32 Unspecified urinary incontinence; Z79.899 Other long term (current) drug therapy; Z85.42 Personal history of malignant neoplasm of other parts of uterus; Z85.828 Personal history of other malignant neoplasm of skin; Z96.653 Presence of artificial knee joint, bilateral; Z86.73 Personal history of transient ischemic attack (TIA), and cerebral infarction without residual deficits; Z87.891 Personal history of nicotine dependence; Z82.49 Family history of ischemic heart disease and other diseases of the circulatory system; Z90.49 Acquired absence of other specified parts of digestive tract; Z96.612 Presence of left artificial shoulder joint; Z87.19 Personal history of other diseases of the digestive system; Z86.19 Personal history of other infectious and parasitic diseases; Z87.01 Personal history of pneumonia (recurrent); Z88.0 Allergy status to penicillin; Z88.8 Allergy status to other drugs, medicaments and biological substances; Z91.048 Other nonmedicinal substance allergy status; Z90.710 Acquired absence of both cervix and uterus; Z90.79 Acquired absence of other genital organ(s); Z80.9 Family history of malignant neoplasm, unspecified; Z79.02 Long term (current) use of antithrombotics/antiplatelets; Z79.890 Hormone replacement therapy; Z79.891 Long term (current) use of opiate analgesic; Z71.3 Dietary counseling and surveillance; Z96.619 Presence of unspecified artificial shoulder joint
CPT/HCPCS: 36415; 71010; 74022; 74176; 80048; 80053; 80061; 82550; 82553; 83605; 83690; 83735; 83880; 84100; 84132; 84484; 85025; 85610; 85730; 93005; 93306; 94760; 96361; 96374; 96375; 96376; 99291